=== PATIENT | male | born 1980 | race Caucasian/White ===

== ENCOUNTER 2018-02-08 07:57 | Inpatient (IN) ==
[2018-02-10] MEDS ORDERED: Cisatracurium Inj 100 MG in Sodium Chlor 0.9% Inj 240 ML IV.CONT PRN (04:27)
[2018-02-11] MEDS ORDERED: Heparin 10,000 UNITS/10 ML Vial (for IV use) OTHER PRN
[2018-02-11] MEDS ORDERED: Albumin Human 25% Inj 100 ML IV.SIG PRN
[2018-02-11] MEDS ORDERED: Acetaminophen 325 MG Tablet PO PRN
[2018-02-11] MEDS ORDERED: Sod Chloride 0.9% Inj 1,000 ML OTHER PRN ×2
[2018-02-11] MEDS ORDERED: Sod Chloride 0.9% Inj 1,000 ML IV.CONT PRN
[2018-02-11] MEDS ORDERED: Heparin 10,000 UNITS/10 ML Vial (for IV use) IV.FLUSH PRN
[2018-02-11] MEDS ORDERED: Gelatin 12 MM/7 MM Topical Foam TOPICAL PRN
[2018-02-11] MEDS ORDERED: Artificial Tears Opth Drops 15 ML Bottle EACH EYE PRN (00:01)
[2018-02-11] MEDS ORDERED: Dextrose 50% in Water 50 ML Vial IV.PUSH PRN (00:01)
[2018-02-11] MEDS ORDERED: Midazolam 50 MG/50 ML Inj 50 MG/50 ML BAG IV.CONT PRN (00:01)
[2018-02-11] MEDS ORDERED: Chlorhexidine Gluconate 2% 1 Pack (2 Cloths) TOPICAL PRN (00:01)
[2018-02-11] MEDS ORDERED: Cisatracurium Inj 100 MG in Sodium Chlor 0.9% Inj 240 ML IV.CONT PRN (00:01)
[2018-02-11] MEDS ORDERED: fentaNYL 10 mcg/mL Premix Drip 2,500 MCG/250 ML BAG IV.SIG PRN (00:01)
[2018-02-11] MEDS ORDERED: Norepinephrine Inj 4 MG in Sodium Chlor 0.9% Inj 246 ML IV.SIG PRN (00:01)
[2018-02-11] MEDS ORDERED: Propofol 1000 mg/100 ml Inj 1,000 MG/100 ML BOTTLE IV.CONT PRN (00:01)
[2018-02-11] MEDS ORDERED: Mix all IV Meds in NS OTHER SCH (00:01)
[2018-02-11] MEDS ORDERED: Phenylephrine Inj 160 MG in Sodium Chlor 0.9% Inj 484 ML IV.CONT PRN (00:01)
[2018-02-11] MEDS ORDERED: Haloperidol Inj 5 MG/ML Ampul IV.PUSH PRN (01:00)
[2018-02-11] MEDS ORDERED: WATER IV.SIG ONE ×2 (01:30)
[2018-02-11] MEDS ORDERED: ACETYLCYSTEINE IV.SIG ONE ×2 (01:30)
[2018-02-11] MEDS ORDERED: DEXTROSE 5% IV.SIG ONE ×2 (01:30)
[2018-02-11] MEDS ORDERED: Chlorhexidine Gluconate 2% 1 Pack (2 Cloths) TOPICAL SCH (04:00)
[2018-02-11] MEDS: Insulin NovoLIN Regular Correctional Sugar Inj SQ SCH ×5 (04:17→22:36)
[2018-02-11] MEDS: Sodium Bicarbonate 8.4% Inj 100 MEQ in Sodium Chloride 0.45 % Inj 900 ML IV.CONT SCH ×4 (04:17→20:57)
[2018-02-11] MEDS: Piperacil/Tazo 3.375 GM Premix 50 ML IV.SIG SCH ×3 (04:18→19:19)
[2018-02-11 06:09] LABS: Baso % (Auto) 0.2 % (0.0-2.0); Hematocrit 37.7 % (39.0-51.0); Hemoglobin 12.5 gm/dL (13.0-17.0); Lymph # (Auto) 0.9 th/mm3 (1.0-4.8); Lymph % (Auto) 3.2 % (9.0-44.0); Mean Corpuscular HGB Conc 33.2 % (32.0-36.0); Mean Corpuscular Hemoglobin 29.8 pg (27.0-34.0); Mean Corpuscular Volume 89.9 fL (80.0-100.0); Mono # (Auto) 0.7 th/mm3 (0.0-0.9); Mono % (Auto) 2.3 % (0.0-8.0); Neut # (Auto) 26.4 th/mm3 (1.8-7.7); Neut % (Auto) 94.3 % (16.0-70.0); Platelet Count 68 th/mm3 (150-450)
[2018-02-11] MEDS: Norepinephrine Inj 16 MG in Sodium Chlor 0.9% Inj 234 ML IV.SIG PRN (06:24)
[2018-02-11] MEDS: Phenylephrine Inj 160 MG in Sodium Chlor 0.9% Inj 484 ML IV.CONT PRN ×3 (06:26→22:32)
[2018-02-11 06:46] LABS: Albumin 1.7 g/dL (3.4-5.0); Carbon Dioxide 12.5 meq/L (21.0-32.0); Magnesium 1.8 mg/dL (1.5-2.5); Potassium 5.6 meq/L (3.5-5.1)
[2018-02-11 07:03] LABS: Phosphorus 8.9 mg/dL (2.5-4.9); Total Protein 4.8 g/dL (6.4-8.2)
[2018-02-11 07:12] LABS: Activated Partial Thrombo Time 41.9 sec (24.3-30.1); INR 1.7 Ratio; Prothrombin Time 17.4 sec (9.8-11.6)
[2018-02-11 07:16] LABS: ABG Base Excess -15.4 mmol/L (-2-2); ABG PCO2 34 mmHg (38-42); ABG PO2 98 mmHG (61-120)
[2018-02-11 07:43] LABS: Calcium 5.1 mg/dL (8.5-10.1)
--- NOTE | 2018-02-11 08:27 | P.PNCC ---
Subjective Subjective Remarks/Hospital Course: Patient is a 37-year-old male with unknown past medical history who presented to [facility] ED post-cardiopulmonary arrest. Per ED records, the patient was running from police and he was shocked twice and tased. The patient collapsed to the ground and was found in asystole. EMS started an IO and patient was given epinephrine and 2 rounds of CPR with successful return of spontaneous circulation. He was intubated on the scene and received approximately 500 mL of normal saline en route. He was hypotensive initially and EMS noted dilated pupils. The patient had a bottle of [place] used for killing weeds and evidently sprayed it at the police officers with potential self-contamination. His laboratory data is significant for severe lactic acidemia with lactic acid level of 25, metabolic acidosis with renal failure, creatinine 1.97. In addition, patient was hyperkalemic at 6.5 potassium. Other significant labs showed elevated ammonia level at 1392 and total CK 3284. His urine drug screen was positive for amphetamines. A CT scan of the brain was obtained, which was limited due to multiple artifacts; however, it showed no acute intracranial abnormalities. The patient also underwent CT angiogram of the chest, which showed no evidence of pulmonary embolism. Minimal ground glass opacities at the lung bases, likely reflecting atelectasis. Chest x-ray post-intubation showed ET tube above the roberth, otherwise no acute abnormalities. In the ED, patient was given approximately 2 L of crystalloids. In addition, he was treated for hyperkalemia with 10 units of IV insulin, D50, sodium bicarbonate, calcium gluconate and was placed on a bicarbonate drip. The patient was seen by Dr. Coronado from nephrology service. 02/09 Patient is intubated and sedated with Diprivan, Versed and Fentanyl drips in addition he is on neuromuscular blockade (Nimbex). Renal function is worse today with Cr: 2.69 from 1.89. 02/10: remains critically ill on vasopressors in shock. severe organ dysfunction persists, including shock liver, severe rhabdomyolysis, acidosis. re-warmed at 36 degrees currently and cisatricurium drip discontinued. 02/11: Remains orally intubated on mechanical ventilation on pressors. Off all sedation. Worsening metabolic acidosis and hyperkalemia. Hypotensive on phenylephrine, vasopressin. Started on Mucomyst GTT per poison control recommendation on 02/10. Nephrology to decide hemodialysis versus CRRT Objective Vital Signs / I&O: Vital Signs 02/11/18 00:05 02/11/18 00:30 02/11/18 01:00 Pulse Rate 132 H 134 H 134 H Respiratory Rate 0 L 0 L 0 L Blood Pressure 143/68 H 147/75 H Pulse Oximetry 99 98 97 02/11/18 01:30 02/11/18 02:00 02/11/18 02:30 Pulse Rate 135 H 137 H 137 H Respiratory Rate 0 L 0 L 0 L Blood Pressure 142/64 H 137/68 137/67 Pulse Oximetry 98 97 97 02/11/18 03:00 02/11/18 03:15 02/11/18 03:21 Pulse Rate 137 H 137 H 137 H Respiratory Rate 0 L 0 L 0 L Blood Pressure 139/62 131/58 L 126/61 Pulse Oximetry 98 97 97 02/11/18 03:30 02/11/18 03:45 02/11/18 03:53 Pulse Rate 137 H 137 H 135 H Respiratory Rate 0 L 0 L 21 Blood Pressure 119/60 117/56 L Pulse Oximetry 98 98 02/11/18 04:00 02/11/18 04:15 02/11/18 04:18 Pulse Rate 135 H 135 H Respiratory Rate 0 L 0 L 20 Blood Pressure 115/57 L 104/51 L Pulse Oximetry 97 97 100 02/11/18 04:30 02/11/18 04:45 02/11/18 05:00 Pulse Rate 133 H 133 H 133 H Respiratory Rate 0 L 0 L 0 L Blood Pressure 100/49 L 98/46 L 93/44 L Pulse Oximetry 96 97 97 02/11/18 05:15 02/11/18 05:30 02/11/18 05:45 Pulse Rate 133 H 130 H 130 H Respiratory Rate 0 L 0 L 0 L Blood Pressure 96/46 L 93/51 L 90/46 L Pulse Oximetry 98 98 98 02/11/18 06:00 02/11/18 06:15 02/11/18 06:30 Pulse Rate 130 H 130 H 130 H Respiratory Rate 0 L 15 20 Blood Pressure 88/44 L 91/48 L 94/46 L Pulse Oximetry 97 97 97 02/11/18 06:31 02/11/18 06:45 02/11/18 07:00 Pulse Rate 130 H 128 H 128 H Respiratory Rate 4 L 0 L 0 L Blood Pressure 94/46 L 91/48 L 92/44 L Pulse Oximetry 97 98 98 02/11/18 07:15 02/11/18 07:24 Pulse Rate 128 H Respiratory Rate 0 L 23 Blood Pressure 100/54 L Pulse Oximetry 93 L 97 Intake & Output 02/10/18 02/11/18 02/11/18 18:59 06:59 18:59 Intake Total 50 / 50 Output Total 450 / 450 Balance -450 / -450 50 / 50 Intake: IV 50 / 50 Zosyn 3.375 GM Premix 50 ML @ 50 / 50 100 mls/hr IV.SIG Q8H ENDY Rx#: [id number] Output: Urine 50 / 50 Stool 400 / 400 Result Diagrams: 02/11/18 05:15 02/11/18 05:15 Imaging: Last Impressions CT Angiography 02/08/18 0816 Signed Impressions: CONCLUSION: 1. Limited visualization of the pulmonary arteries beyond the proximal segment al level. No evidence for pulmonary artery embolism to the proximal segmental l evel. 2. Minimal groundglass opacities at the lung bases likely reflecting atelectas is. 3. Otherwise, unremarkable chest CT exam. Head CT 02/08/18 0804 Signed Impressions: CONCLUSION: 1. Limited evaluation near the vertices by multiple artifacts. 2. Otherwise, no acute intracranial abnormality. Chest X-Ray 02/08/18 08 Signed Impressions: CONCLUSION: 1. ETT in good position. NGT in the stomach. 2. No acute abnormality. Liver Ultrasound 02/08/18 0000 Signed Impressions: CONCLUSION: 1. Unremarkable right upper quadrant ultrasound examination. Specifically, no sonographic evidence for cholelithiasis or acute cholecystitis. Objective Remarks: Objective Remarks GENERAL: Patient is intubated and sedated SKIN: Warm and dry. HEAD: Normocephalic. EYES: No scleral icterus. No injection or drainage. NECK: Supple, trachea midline. No JVD. CARDIOVASCULAR: Regular rate and rhythm. sinus. RESPIRATORY: Breath sounds equal bilaterally. No accessory muscle use. GASTROINTESTINAL: Abdomen soft, non-tender, nondistended. no guarding. MUSCULOSKELETAL: No cyanosis, or edema. Neuro: Sedated, intubated, RASS -4. Assessment and Plan - Assessment and Plan Plan: A/P Assessment and Plan 1. Status post cardiopulmonary arrest. 2. ? Anoxic brain injury. 3. Encephalopathy. 4. Acute kidney injury- likely requiring renal replacement therapy 5 Thrombocytopenia 7. Severe Rhabdomyolysis.- worsening 8. Lactic acidemia. 9. Elevated ammonia level. 10. Leukocytosis. 11. Drug use with urine drug screen positive for amphetamines. 12 Coagulopathy 13. acute hypoxic and hypercarbic respiratory failure 14. acute anion gap and non-anion gap mixed metabolic acidosis 15. Acute shock liver 16. hypocalcemia 17. hyperkalemia 18. hypermagnesemia Plan Neuro: s/p therapeutic hypothermia Off all sedation. CT brain negative for acute process, UDS positive for amphetamines. On lactulose 30 mL q.i.d., monitor ammonia level. Will obtain EEG, Neuro consult Pulm: Continue with vent support. Maintain sats >92%. Bronchodilators in the form of DuoNeb q. 6 hours and will initiate ICU vent bundle. no weaning of mechanical ventilation while in shock with severe organ dysfunction CV: Monitor HR and BP and maintain MAP> 65 mmHg. 2d echo 02/09: ef 50-55%. On phenylephrine/vasopressin gtt. for hypotension. : Monitor renal function, I's and O's and electrolyte replacement as needed. Started on hemodialysis on 02/10. Remains in metabolic acidosis and hyperkalemia with negligible urine output. Renal is following- Dr. Coronado. Patient may need CRRT in view of worsening metabolic acidosis and hypotension-Nephrology to decide GI: on Pepcid for GI prophylaxis. Monitor LFTs , US Liver: Unremarkable, no evidence for cholelithiasis or acute cholecystitis. Continue with lactulose 30ml QID, monitor ammonia level. Hepatitis C positive hold off on tube feeds for now given shock. GI is following- started on Mucomyst ID: continue empiric abx ( Zosyn) in setting of worsening leukocytosis Monitor for signs of infection(fever and WBC). Follow up blood and urine cultures. Heme: Monitor CBC, coags. Coagulopathy likely 2nd hepatic failure Endo: SSI with Accu-Cheks for glycemic control. GI prophylaxis with Pepcid 10 mg IV q. 12 and DVT prophylaxis with SCDs . Lines: Cooling catheter placed in the left femoral area 02/07 LEft IJ vascath, LIJ central line placed 02/10. Patient is critically ill s/p cardiac arrest with worsening renal function, liver failure, Rhabdo and possibly anoxic brain injury. Prognosis guarded. CCT 45 mins, exclusive of separately billable procedures.
[2018-02-11] MEDS ORDERED: Sodium Bicarbonate 8.4% Inj 50 MEQ/50 ML Syringe IV.PUSH STA (08:28)
[2018-02-11 08:31] LABS: Lymphocytes 6 % (9-44); Metamyelocytes 10 % (0-1); Monocytes 5 % (0-8); Tallied Nucleated RBC 1 (0-0)
[2018-02-11 08:32] LABS: Platelet Morphology Normal (Normal); Toxic Granulation 1+
[2018-02-11 08:33] LABS: Acanthocytes 1+
--- NOTE | 2018-02-11 09:14 | P.PN ---
Subjective Interval history: Patient remain on the vent. and sedated, has been now on 3 pressors. Physical Exam Vital signs: Vital Signs 02/11/18 00:05 02/11/18 00:30 02/11/18 01:00 Pulse Rate 132 H 134 H 134 H Respiratory Rate 0 L 0 L 0 L Blood Pressure 143/68 H 147/75 H Pulse Oximetry 99 98 97 02/11/18 01:30 02/11/18 02:00 02/11/18 02:30 Pulse Rate 135 H 137 H 137 H Respiratory Rate 0 L 0 L 0 L Blood Pressure 142/64 H 137/68 137/67 Pulse Oximetry 98 97 97 02/11/18 03:00 02/11/18 03:15 02/11/18 03:21 Pulse Rate 137 H 137 H 137 H Respiratory Rate 0 L 0 L 0 L Blood Pressure 139/62 131/58 L 126/61 Pulse Oximetry 98 97 97 02/11/18 03:30 02/11/18 03:45 02/11/18 03:53 Pulse Rate 137 H 137 H 135 H Respiratory Rate 0 L 0 L 21 Blood Pressure 119/60 117/56 L Pulse Oximetry 98 98 02/11/18 04:00 02/11/18 04:15 02/11/18 04:18 Pulse Rate 135 H 135 H Respiratory Rate 0 L 0 L 20 Blood Pressure 115/57 L 104/51 L Pulse Oximetry 97 97 100 02/11/18 04:30 02/11/18 04:45 02/11/18 05:00 Pulse Rate 133 H 133 H 133 H Respiratory Rate 0 L 0 L 0 L Blood Pressure 100/49 L 98/46 L 93/44 L Pulse Oximetry 96 97 97 02/11/18 05:15 02/11/18 05:30 02/11/18 05:45 Pulse Rate 133 H 130 H 130 H Respiratory Rate 0 L 0 L 0 L Blood Pressure 96/46 L 93/51 L 90/46 L Pulse Oximetry 98 98 98 02/11/18 06:00 02/11/18 06:15 02/11/18 06:30 Pulse Rate 130 H 130 H 130 H Respiratory Rate 0 L 15 20 Blood Pressure 88/44 L 91/48 L 94/46 L Pulse Oximetry 97 97 97 02/11/18 06:31 02/11/18 06:45 02/11/18 07:00 Pulse Rate 130 H 128 H 128 H Respiratory Rate 4 L 0 L 0 L Blood Pressure 94/46 L 91/48 L 92/44 L Pulse Oximetry 97 98 98 02/11/18 07:15 02/11/18 07:24 02/11/18 07:30 Pulse Rate 128 H 128 H Respiratory Rate 0 L 23 0 L Blood Pressure 100/54 L 100/53 L Pulse Oximetry 93 L 97 99 02/11/18 07:45 02/11/18 08:00 02/11/18 08:15 Pulse Rate 128 H 128 H 128 H Respiratory Rate 0 L 0 L 0 L Blood Pressure 94/50 L 93/48 L 88/51 L Pulse Oximetry 97 98 98 02/11/18 08:30 02/11/18 08:45 Pulse Rate 128 H 128 H Respiratory Rate 0 L 0 L Blood Pressure 91/50 L 89/49 L Pulse Oximetry 98 98 Intake & Output 02/10/18 02/11/18 02/11/18 18:59 06:59 18:59 Intake Total 50 / 50 Output Total 450 / 450 Balance -450 / -450 50 / 50 Intake: IV 50 / 50 Zosyn 3.375 GM Premix 50 ML @ 50 / 50 100 mls/hr IV.SIG Q8H ENDY Rx#: [id number] Output: Urine 50 / 50 Stool 400 / 400 - Constitutional severe distress - Routine HEENT Exam Head: Present: normocephalic Eye: Present: EOMI - Routine Neck Exam Present: supple, JVD - Routine Respiratory Exam Present: accessory muscle use, patient mechanically ventilated - Routine Cardiovascular Exam Present: S1, S2, tachycardia - Routine Abdominal Exam Present: soft, distended, firm - Routine Extremities Exam Present: cyanosis, edema - Detailed Neurological Exam: Coma Scale Eye Opening: None Verbal Response: None - Urinary Catheter Management Indwelling Urethral Catheter Cath placed during this visit: no Results - Labs CBC & Chem 7: 02/11/18 05:15 02/11/18 05:15 Labs: Laboratory Results - last 24 hr 02/08/18 02/08/18 02/08/18 08:10 08:10 08:10 WBC RBC Hgb Hct MCV MCH MCHC RDW Plt Count MPV Prelim Diff (Auto) Neut % (Auto) Lymph % (Auto) [place] % (Auto) Eos % (Auto) Baso % (Auto) Neut # (Auto) Lymph # (Auto) [place] # (Auto) Eos # (Auto) Baso # (Auto) CBC Comment WBC Differential Total Counted Neutrophils % (Manual) Seg Neuts % (Manual) Band Neutrophils % Band Neuts % (Manual) Lymphocytes % Lymphocytes % (Manual) Monocytes % Monocytes % (Manual) Metamyelocytes % (Man) Neutrophils # (Manual) Abs Neuts (Manual) Nucleated RBCs/100 WBC Differential Comment Toxic Granulation Platelet Estimate Platelet Morphology Plt Morphology Comment Acanthocytes (Spur) RBC Morph Comment PT INR APTT Fibrinogen Puncture Site Patient Temperature HCO3 Base Excess O2 Saturation ABG pH ABG pCO2 ABG pO2 ABG HCO3 ABG O2 Content ABG Base Excess ABG Carboxyhemoglobin ABG Methemoglobin Cap Carboxyhemoglobin Hemoglobin O2 Delivery Device Vent Setting Inspired O2 Critical Value Sodium 143 Potassium 6.5 H Chloride 104 Carbon Dioxide 9.2 L Anion Gap 30 H BUN 12 Creatinine 1.97 H Estimated GFR 29 L Random Glucose 141 H Serum Osmolality Lactic Acid Calcium 8.2 L Prot Corrected Calcium Phosphorus Magnesium Iron TIBC % Saturation Ferritin Total Bilirubin 0.3 AST 103 H ALT 54 Alkaline Phosphatase 63 Ammonia Total Creatine Kinase 3284 H CK-MB (CK-2) 20.5 H CK-MB (CK-2) % 0.6 Troponin I 0.08 H Total Protein 6.8 Albumin 3.3 L TSH 3rd Generation 2.960 Urine Color Urine Turbidity Urine pH Ur Specific [place] Urine Protein Urine Glucose (UA) Urine Ketones Urine Occult Blood Urine Nitrite Urine Bilirubin Urine Urobilinogen Ur Leukocyte Esterase Urine RBC Urine WBC Amorphous Sediment Urine Bacteria Hyaline Casts Urine Mucus Micro UA Comment Nasal Screen MRSA (PCR) Salicylates 2.9 Urine Opiates Screen NEG Acetaminophen LESS THAN 2.0 L Ur Barbiturates Screen NEG Valproic Acid Ur Amphetamines Screen POS H U Benzodiazepines Scrn NEG Urine Cocaine Screen NEG U Cannabinoids Screen NEG Ethyl Alcohol LESS THAN 3 Hepatitis A IgM Ab Hep Bs Antigen Hep B Core IgM Ab Hep C IgG Ab 02/08/18 02/08/18 02/08/18 08:10 08:10 08:10 WBC RBC Hgb Hct MCV MCH MCHC RDW Plt Count MPV Prelim Diff (Auto) Neut % (Auto) Lymph % (Auto) [place] % (Auto) Eos % (Auto) Baso % (Auto) Neut # (Auto) Lymph # (Auto) [place] # (Auto) Eos # (Auto) Baso # (Auto) CBC Comment WBC Differential Total Counted Neutrophils % (Manual) Seg Neuts % (Manual) Band Neutrophils % Band Neuts % (Manual) Lymphocytes % Lymphocytes % (Manual) Monocytes % Monocytes % (Manual) Metamyelocytes % (Man) Neutrophils # (Manual) Abs Neuts (Manual) Nucleated RBCs/100 WBC Differential Comment Toxic Granulation Platelet Estimate Platelet Morphology Plt Morphology Comment Acanthocytes (Spur) RBC Morph Comment PT 12.8 H INR 1.3 APTT 59.7 H Fibrinogen Puncture Site Patient Temperature HCO3 Base Excess O2 Saturation ABG pH ABG pCO2 ABG pO2 ABG HCO3 ABG O2 Content ABG Base Excess ABG Carboxyhemoglobin ABG Methemoglobin Cap Carboxyhemoglobin Hemoglobin O2 Delivery Device Vent Setting Inspired O2 Critical Value Sodium Potassium Chloride Carbon Dioxide Anion Gap BUN Creatinine Estimated GFR Random Glucose Serum Osmolality Lactic Acid 25.2 H* Calcium Prot Corrected Calcium Phosphorus Magnesium Iron TIBC % Saturation Ferritin Total Bilirubin AST ALT Alkaline Phosphatase Ammonia 1392 H Total Creatine Kinase CK-MB (CK-2) CK-MB (CK-2) % Troponin I Total Protein Albumin TSH 3rd Generation Urine Color Urine Turbidity Urine pH Ur Specific [place] Urine Protein Urine Glucose (UA) Urine Ketones Urine Occult Blood Urine Nitrite Urine Bilirubin Urine Urobilinogen Ur Leukocyte Esterase Urine RBC Urine WBC Amorphous Sediment Urine Bacteria Hyaline Casts Urine Mucus Micro UA Comment Nasal Screen MRSA (PCR) Salicylates Urine Opiates Screen Acetaminophen Ur Barbiturates Screen Valproic Acid Ur Amphetamines Screen U Benzodiazepines Scrn Urine Cocaine Screen U Cannabinoids Screen Ethyl Alcohol Hepatitis A IgM Ab Hep Bs Antigen Hep B Core IgM Ab Hep C IgG Ab 02/08/18 02/08/18 02/08/18 08:10 08:10 10:32 WBC 12.0 H RBC 4.12 L Hgb 12.1 L Hct 41.1 MCV 99.6 MCH 29.4 MCHC 29.6 L RDW 16.6 Plt Count 283 MPV 9.1 Prelim Diff (Auto) Neut % (Auto) 46.3 Lymph % (Auto) 47.9 H [place] % (Auto) 4.8 Eos % (Auto) 0.2 Baso % (Auto) 0.8 Neut # (Auto) 5.6 Lymph # (Auto) 5.7 H [place] # (Auto) 0.6 Eos # (Auto) 0.0 Baso # (Auto) 0.1 CBC Comment AUTO DIFF WBC Differential Total Counted 100 Neutrophils % (Manual) 47 Seg Neuts % (Manual) Band Neutrophils % 3 Band Neuts % (Manual) Lymphocytes % 45 H Lymphocytes % (Manual) Monocytes % 5 Monocytes % (Manual) Metamyelocytes % (Man) Neutrophils # (Manual) 6.0 Abs Neuts (Manual) Nucleated RBCs/100 WBC Differential Comment FINAL DIFF MANUAL Toxic Granulation Platelet Estimate NORMAL Platelet Morphology Plt Morphology Comment NORMAL Acanthocytes (Spur) RBC Morph Comment PT INR APTT Fibrinogen Puncture Site LT FEMORAL Patient Temperature 98.6 HCO3 21 L Base Excess -3.2 L O2 Saturation 97 ABG pH 7.36 L ABG pCO2 39 ABG pO2 282 H ABG HCO3 ABG O2 Content 18.6 ABG Base Excess ABG Carboxyhemoglobin 0.2 ABG Methemoglobin 1.6 Cap Carboxyhemoglobin Hemoglobin 13.1 O2 Delivery Device VENTILATOR Vent Setting 500/10/+5/1.0 Inspired O2 100 Critical Value Sodium Potassium Chloride Carbon Dioxide Anion Gap BUN Creatinine Estimated GFR Random Glucose Serum Osmolality Lactic Acid Calcium Prot Corrected Calcium Phosphorus Magnesium Iron TIBC % Saturation Ferritin Total Bilirubin AST ALT Alkaline Phosphatase Ammonia Total Creatine Kinase CK-MB (CK-2) CK-MB (CK-2) % Troponin I Total Protein Albumin TSH 3rd Generation Urine Color Crystal Urine Turbidity CLOUDY H Urine pH 5.0 Ur Specific [place] 1.027 Urine Protein 100 H Urine Glucose (UA) NEG Urine Ketones TRACE H Urine Occult Blood SMALL H Urine Nitrite NEG Urine Bilirubin NEG Urine Urobilinogen 2.0 H Ur Leukocyte Esterase NEG Urine RBC 15 H Urine WBC 12 H Amorphous Sediment RARE Urine Bacteria RARE H Hyaline Casts 3 Urine Mucus FEW H Micro UA Comment CATH-CULTURE IND Nasal Screen MRSA (PCR) Salicylates Urine Opiates Screen Acetaminophen Ur Barbiturates Screen Valproic Acid Ur Amphetamines Screen U Benzodiazepines Scrn Urine Cocaine Screen U Cannabinoids Screen Ethyl Alcohol Hepatitis A IgM Ab Hep Bs Antigen Hep B Core IgM Ab Hep C IgG Ab 02/08/18 02/08/18 02/08/18 11:17 11:17 12:22 WBC RBC Hgb Hct MCV MCH MCHC RDW Plt Count MPV Prelim Diff (Auto) Neut % (Auto) Lymph % (Auto) [place] % (Auto) Eos % (Auto) Baso % (Auto) Neut # (Auto) Lymph # (Auto) [place] # (Auto) Eos # (Auto) Baso # (Auto) CBC Comment WBC Differential Total Counted Neutrophils % (Manual) Seg Neuts % (Manual) Band Neutrophils % Band Neuts % (Manual) Lymphocytes % Lymphocytes % (Manual) Monocytes % Monocytes % (Manual) Metamyelocytes % (Man) Neutrophils # (Manual) Abs Neuts (Manual) Nucleated RBCs/100 WBC Differential Comment Toxic Granulation Platelet Estimate Platelet Morphology Plt Morphology Comment Acanthocytes (Spur) RBC Morph Comment PT INR APTT Fibrinogen Puncture Site Patient Temperature HCO3 Base Excess O2 Saturation ABG pH ABG pCO2 ABG pO2 ABG HCO3 ABG O2 Content ABG Base Excess ABG Carboxyhemoglobin ABG Methemoglobin Cap Carboxyhemoglobin Hemoglobin O2 Delivery Device Vent Setting Inspired O2 Critical Value Sodium 143 Potassium 3.2 L D Chloride 107 Carbon Dioxide 23.3 D Anion Gap 13 BUN 13 Creatinine 1.60 H Estimated GFR 37 L Random Glucose 26 L* D Serum Osmolality Lactic Acid 3.0 H Calcium 6.4 L* D Prot Corrected Calcium 6.5 L* Phosphorus Magnesium Iron TIBC % Saturation Ferritin Total Bilirubin AST ALT Alkaline Phosphatase Ammonia Total Creatine Kinase CK-MB (CK-2) CK-MB (CK-2) % Troponin I Total Protein 7.0 Albumin TSH 3rd Generation Urine Color Urine Turbidity Urine pH Ur Specific [place] Urine Protein Urine Glucose (UA) Urine Ketones Urine Occult Blood Urine Nitrite Urine Bilirubin Urine Urobilinogen Ur Leukocyte Esterase Urine RBC Urine WBC Amorphous Sediment Urine Bacteria Hyaline Casts Urine Mucus Micro UA Comment Nasal Screen MRSA (PCR) MRSA NOT DETECTED Salicylates Urine Opiates Screen Acetaminophen Ur Barbiturates Screen Valproic Acid Ur Amphetamines Screen U Benzodiazepines Scrn Urine Cocaine Screen U Cannabinoids Screen Ethyl Alcohol Hepatitis A IgM Ab Hep Bs Antigen Hep B Core IgM Ab Hep C IgG Ab 02/08/1818 02/08/18 12:31 12:31 12:31 WBC RBC Hgb Hct MCV MCH MCHC RDW Plt Count MPV Prelim Diff (Auto) Neut % (Auto) Lymph % (Auto) [place] % (Auto) Eos % (Auto) Baso % (Auto) Neut # (Auto) Lymph # (Auto) [place] # (Auto) Eos # (Auto) Baso # (Auto) CBC Comment WBC Differential Total Counted Neutrophils % (Manual) Seg Neuts % (Manual) Band Neutrophils % Band Neuts % (Manual) Lymphocytes % Lymphocytes % (Manual) Monocytes % Monocytes % (Manual) Metamyelocytes % (Man) Neutrophils # (Manual) Abs Neuts (Manual) Nucleated RBCs/100 WBC Differential Comment Toxic Granulation Platelet Estimate Platelet Morphology Plt Morphology Comment Acanthocytes (Spur) RBC Morph Comment PT INR APTT Fibrinogen Puncture Site Patient Temperature HCO3 Base Excess O2 Saturation ABG pH ABG pCO2 ABG pO2 ABG HCO3 ABG O2 Content ABG Base Excess ABG Carboxyhemoglobin ABG Methemoglobin Cap Carboxyhemoglobin Hemoglobin O2 Delivery Device Vent Setting Inspired O2 Critical Value Sodium Potassium Chloride Carbon Dioxide Anion Gap BUN Creatinine Estimated GFR Random Glucose Serum Osmolality Lactic Acid Calcium Prot Corrected Calcium Phosphorus 4.2 Magnesium Iron TIBC % Saturation Ferritin Total Bilirubin AST ALT Alkaline Phosphatase Ammonia 50 H Total Creatine Kinase CK-MB (CK-2) CK-MB (CK-2) % Troponin I Total Protein Albumin TSH 3rd Generation Urine Color Urine Turbidity Urine pH Ur Specific [place] Urine Protein Urine Glucose (UA) Urine Ketones Urine Occult Blood Urine Nitrite Urine Bilirubin Urine Urobilinogen Ur Leukocyte Esterase Urine RBC Urine WBC Amorphous Sediment Urine Bacteria Hyaline Casts Urine Mucus Micro UA Comment Nasal Screen MRSA (PCR) Salicylates Urine Opiates Screen Acetaminophen Ur Barbiturates Screen Valproic Acid 3 L Ur Amphetamines Screen U Benzodiazepines Scrn Urine Cocaine Screen U Cannabinoids Screen Ethyl Alcohol Hepatitis A IgM Ab Hep Bs Antigen Hep B Core IgM Ab Hep C IgG Ab 02/08/18 02/08/18 02/08/18 14:11 16:22 16:22 WBC RBC Hgb Hct MCV MCH MCHC RDW Plt Count MPV Prelim Diff (Auto) Neut % (Auto) Lymph % (Auto) [place] % (Auto) Eos % (Auto) Baso % (Auto) Neut # (Auto) Lymph # (Auto) [place] # (Auto) Eos # (Auto) Baso # (Auto) CBC Comment WBC Differential Total Counted Neutrophils % (Manual) Seg Neuts % (Manual) Band Neutrophils % Band Neuts % (Manual) Lymphocytes % Lymphocytes % (Manual) Monocytes % Monocytes % (Manual) Metamyelocytes % (Man) Neutrophils # (Manual) Abs Neuts (Manual) Nucleated RBCs/100 WBC Differential Comment Toxic Granulation Platelet Estimate Platelet Morphology Plt Morphology Comment Acanthocytes (Spur) RBC Morph Comment PT INR APTT Fibrinogen Puncture Site Patient Temperature HCO3 Base Excess O2 Saturation ABG pH ABG pCO2 ABG pO2 ABG HCO3 ABG O2 Content ABG Base Excess ABG Carboxyhemoglobin ABG Methemoglobin Cap Carboxyhemoglobin Hemoglobin O2 Delivery Device Vent Setting Inspired O2 Critical Value Sodium Potassium Chloride Carbon Dioxide Anion Gap BUN Creatinine Estimated GFR Random Glucose Serum Osmolality 302 H Lactic Acid 1.2 Calcium Prot Corrected Calcium Phosphorus Magnesium Iron TIBC % Saturation Ferritin Total Bilirubin AST ALT Alkaline Phosphatase Ammonia 53 H Total Creatine Kinase CK-MB (CK-2) CK-MB (CK-2) % Troponin I Total Protein Albumin TSH 3rd Generation Urine Color Urine Turbidity Urine pH Ur Specific [place] Urine Protein Urine Glucose (UA) Urine Ketones Urine Occult Blood Urine Nitrite Urine Bilirubin Urine Urobilinogen Ur Leukocyte Esterase Urine RBC Urine WBC Amorphous Sediment Urine Bacteria Hyaline Casts Urine Mucus Micro UA Comment Nasal Screen MRSA (PCR) Salicylates Urine Opiates Screen Acetaminophen Ur Barbiturates Screen Valproic Acid Ur Amphetamines Screen U Benzodiazepines Scrn Urine Cocaine Screen U Cannabinoids Screen Ethyl Alcohol Hepatitis A IgM Ab Hep Bs Antigen Hep B Core IgM Ab Hep C IgG Ab 02/08/18 02/08/18 02/09/18 18:00 23:07 03:56 WBC RBC Hgb Hct MCV MCH MCHC RDW Plt Count MPV Prelim Diff (Auto) Neut % (Auto) Lymph % (Auto) [place] % (Auto) Eos % (Auto) Baso % (Auto) Neut # (Auto) Lymph # (Auto) [place] # (Auto) Eos # (Auto) Baso # (Auto) CBC Comment WBC Differential Total Counted Neutrophils % (Manual) Seg Neuts % (Manual) Band Neutrophils % Band Neuts % (Manual) Lymphocytes % Lymphocytes % (Manual) Monocytes % Monocytes % (Manual) Metamyelocytes % (Man) Neutrophils # (Manual) Abs Neuts (Manual) Nucleated RBCs/100 WBC Differential Comment Toxic Granulation Platelet Estimate Platelet Morphology Plt Morphology Comment Acanthocytes (Spur) RBC Morph Comment PT INR APTT Fibrinogen Puncture Site Patient Temperature HCO3 Base Excess O2 Saturation ABG pH ABG pCO2 ABG pO2 ABG HCO3 ABG O2 Content ABG Base Excess ABG Carboxyhemoglobin ABG Methemoglobin Cap Carboxyhemoglobin Hemoglobin O2 Delivery Device Vent Setting Inspired O2 Critical Value Sodium 142 141 Potassium 3.9 4.6 Chloride 107 109 H Carbon Dioxide 24.2 22.7 Anion Gap 11 9 BUN 19 H 26 H Creatinine 1.89 H 2.60 H Estimated GFR 31 L 21 L Random Glucose 123 H 129 H Serum Osmolality Lactic Acid 0.9 Calcium 6.6 L* 6.3 L* Prot Corrected Calcium 6.9 L* 6.7 L* Phosphorus Magnesium Iron TIBC % Saturation Ferritin Total Bilirubin 1.1 H AST 2631 H ALT 583 H Alkaline Phosphatase 97 Ammonia Total Creatine Kinase 249717 H CK-MB (CK-2) 1505.3 H CK-MB (CK-2) % 1.1 Troponin I Total Protein 6.6 6.3 L Albumin 3.0 L TSH 3rd Generation Urine Color Urine Turbidity Urine pH Ur Specific [place] Urine Protein Urine Glucose (UA) Urine Ketones Urine Occult Blood Urine Nitrite Urine Bilirubin Urine Urobilinogen Ur Leukocyte Esterase Urine RBC Urine WBC Amorphous Sediment Urine Bacteria Hyaline Casts Urine Mucus Micro UA Comment Nasal Screen MRSA (PCR) Salicylates Urine Opiates Screen Acetaminophen Ur Barbiturates Screen Valproic Acid Ur Amphetamines Screen U Benzodiazepines Scrn Urine Cocaine Screen U Cannabinoids Screen Ethyl Alcohol Hepatitis A IgM Ab Hep Bs Antigen Hep B Core IgM Ab Hep C IgG Ab 02/09/18 02/09/18 02/09/18 03:56 03:56 03:56 WBC 21.4 H D RBC 4.85 Hgb 14.4 D Hct 44.0 MCV 90.7 D MCH 29.7 MCHC 32.7 RDW 16.1 Plt Count 119 L D MPV 8.1 Prelim Diff (Auto) Neut % (Auto) 95.5 H Lymph % (Auto) 2.6 L [place] % (Auto) 1.8 Eos % (Auto) 0.0 Baso % (Auto) 0.1 Neut # (Auto) 20.4 H Lymph # (Auto) 0.6 L [place] # (Auto) 0.4 Eos # (Auto) 0.0 Baso # (Auto) 0.0 CBC Comment DIFF FINAL WBC Differential Total Counted Neutrophils % (Manual) Seg Neuts % (Manual) Band Neutrophils % Band Neuts % (Manual) Lymphocytes % Lymphocytes % (Manual) Monocytes % Monocytes % (Manual) Metamyelocytes % (Man) Neutrophils # (Manual) Abs Neuts (Manual) Nucleated RBCs/100 WBC Differential Comment Toxic Granulation Platelet Estimate Platelet Morphology Plt Morphology Comment Acanthocytes (Spur) RBC Morph Comment PT INR APTT Fibrinogen Puncture Site Patient Temperature HCO3 Base Excess O2 Saturation ABG pH ABG pCO2 ABG pO2 ABG HCO3 ABG O2 Content ABG Base Excess ABG Carboxyhemoglobin ABG Methemoglobin Cap Carboxyhemoglobin Hemoglobin O2 Delivery Device Vent Setting Inspired O2 Critical Value Sodium Potassium Chloride Carbon Dioxide Anion Gap BUN Creatinine Estimated GFR Random Glucose Serum Osmolality Lactic Acid 1.0 Calcium Prot Corrected Calcium Phosphorus Magnesium Iron TIBC % Saturation Ferritin Total Bilirubin AST ALT Alkaline Phosphatase Ammonia 100 H Total Creatine Kinase CK-MB (CK-2) CK-MB (CK-2) % Troponin I Total Protein Albumin TSH 3rd Generation Urine Color Urine Turbidity Urine pH Ur Specific [place] Urine Protein Urine Glucose (UA) Urine Ketones Urine Occult Blood Urine Nitrite Urine Bilirubin Urine Urobilinogen Ur Leukocyte Esterase Urine RBC Urine WBC Amorphous Sediment Urine Bacteria Hyaline Casts Urine Mucus Micro UA Comment Nasal Screen MRSA (PCR) Salicylates Urine Opiates Screen Acetaminophen Ur Barbiturates Screen Valproic Acid Ur Amphetamines Screen U Benzodiazepines Scrn Urine Cocaine Screen U Cannabinoids Screen Ethyl Alcohol Hepatitis A IgM Ab Hep Bs Antigen Hep B Core IgM Ab Hep C IgG Ab 02/09/18 02/09/18 02/09/18 09:20 09:20 09:20 WBC RBC Hgb Hct MCV MCH MCHC RDW Plt Count MPV Prelim Diff (Auto) Neut % (Auto) Lymph % (Auto) [place] % (Auto) Eos % (Auto) Baso % (Auto) Neut # (Auto) Lymph # (Auto) [place] # (Auto) Eos # (Auto) Baso # (Auto) CBC Comment WBC Differential Total Counted Neutrophils % (Manual) Seg Neuts % (Manual) Band Neutrophils % Band Neuts % (Manual) Lymphocytes % Lymphocytes % (Manual) Monocytes % Monocytes % (Manual) Metamyelocytes % (Man) Neutrophils # (Manual) Abs Neuts (Manual) Nucleated RBCs/100 WBC Differential Comment Toxic Granulation Platelet Estimate Platelet Morphology Plt Morphology Comment Acanthocytes (Spur) RBC Morph Comment PT 18.1 H D INR 1.8 APTT Fibrinogen 120 L Puncture Site Patient Temperature HCO3 Base Excess O2 Saturation ABG pH ABG pCO2 ABG pO2 ABG HCO3 ABG O2 Content ABG Base Excess ABG Carboxyhemoglobin ABG Methemoglobin Cap Carboxyhemoglobin Hemoglobin O2 Delivery Device Vent Setting Inspired O2 Critical Value Sodium 143 Potassium 4.7 Chloride 111 H Carbon Dioxide 22.1 Anion Gap 10 BUN 28 H Creatinine 3.05 H Estimated GFR 18 L Random Glucose 127 H Serum Osmolality Lactic Acid Calcium 7.5 L D Prot Corrected Calcium Phosphorus Magnesium 4.0 H Iron TIBC % Saturation Ferritin Total Bilirubin AST ALT Alkaline Phosphatase Ammonia Total Creatine Kinase CK-MB (CK-2) CK-MB (CK-2) % Troponin I Total Protein Albumin TSH 3rd Generation Urine Color Urine Turbidity Urine pH Ur Specific [place] Urine Protein Urine Glucose (UA) Urine Ketones Urine Occult Blood Urine Nitrite Urine Bilirubin Urine Urobilinogen Ur Leukocyte Esterase Urine RBC Urine WBC Amorphous Sediment Urine Bacteria Hyaline Casts Urine Mucus Micro UA Comment Nasal Screen MRSA (PCR) Salicylates Urine Opiates Screen Acetaminophen Ur Barbiturates Screen Valproic Acid Ur Amphetamines Screen U Benzodiazepines Scrn Urine Cocaine Screen U Cannabinoids Screen Ethyl Alcohol Hepatitis A IgM Ab NONREACTIVE Hep Bs Antigen NONREACTIVE Hep B Core IgM Ab NONREACTIVE Hep C IgG Ab REACTIVE H 02/09/18 02/10/18 02/10/18 22:10 04:00 04:00 WBC RBC Hgb Hct MCV MCH MCHC RDW Plt Count MPV Prelim Diff (Auto) Neut % (Auto) Lymph % (Auto) [place] % (Auto) Eos % (Auto) Baso % (Auto) Neut # (Auto) Lymph # (Auto) [place] # (Auto) Eos # (Auto) Baso # (Auto) CBC Comment WBC Differential Total Counted Neutrophils % (Manual) Seg Neuts % (Manual) Band Neutrophils % Band Neuts % (Manual) Lymphocytes % Lymphocytes % (Manual) Monocytes % Monocytes % (Manual) Metamyelocytes % (Man) Neutrophils # (Manual) Abs Neuts (Manual) Nucleated RBCs/100 WBC Differential Comment Toxic Granulation Platelet Estimate Platelet Morphology Plt Morphology Comment Acanthocytes (Spur) RBC Morph Comment PT 18.2 H INR 1.8 APTT Fibrinogen Puncture Site Patient Temperature HCO3 Base Excess O2 Saturation ABG pH ABG pCO2 ABG pO2 ABG HCO3 ABG O2 Content ABG Base Excess ABG Carboxyhemoglobin ABG Methemoglobin Cap Carboxyhemoglobin Hemoglobin O2 Delivery Device Vent Setting Inspired O2 Critical Value Sodium 142 143 Potassium 5.4 H 5.3 H Chloride 108 H 107 Carbon Dioxide 23.5 22.0 Anion Gap 11 14 BUN 34 H 38 H Creatinine 3.97 H 4.62 H Estimated GFR 13 L 11 L Random Glucose 90 94 Serum Osmolality Lactic Acid Calcium 5.6 L* D 6.2 L* Prot Corrected Calcium 6.1 L* D 7.1 L* Phosphorus Magnesium 3.3 H D 3.0 H Iron 157 TIBC 167 L % Saturation 94.2 H Ferritin 2162 H Total Bilirubin 1.5 H AST 4303 H ALT 1637 H Alkaline Phosphatase 110 Ammonia Total Creatine Kinase 528742 H CK-MB (CK-2) 1446.6 H CK-MB (CK-2) % 0.8 Troponin I Total Protein 5.8 L 5.2 L D Albumin 2.2 L D TSH 3rd Generation Urine Color Urine Turbidity Urine pH Ur Specific [place] Urine Protein Urine Glucose (UA) Urine Ketones Urine Occult Blood Urine Nitrite Urine Bilirubin Urine Urobilinogen Ur Leukocyte Esterase Urine RBC Urine WBC Amorphous Sediment Urine Bacteria Hyaline Casts Urine Mucus Micro UA Comment Nasal Screen MRSA (PCR) Salicylates Urine Opiates Screen Acetaminophen Ur Barbiturates Screen Valproic Acid Ur Amphetamines Screen U Benzodiazepines Scrn Urine Cocaine Screen U Cannabinoids Screen Ethyl Alcohol Hepatitis A IgM Ab Hep Bs Antigen Hep B Core IgM Ab Hep C IgG Ab 02/10/18 02/10/18 02/10/18 06:00 06:15 07:52 WBC 18.4 H RBC 4.37 L Hgb 13.0 Hct 40.0 MCV 91.5 MCH 29.7 MCHC 32.4 RDW 16.2 Plt Count 99 L MPV 9.6 Prelim Diff (Auto) Neut % (Auto) 93.0 H Lymph % (Auto) 4.3 L [place] % (Auto) 2.6 Eos % (Auto) 0.0 Baso % (Auto) 0.1 Neut # (Auto) 17.1 H Lymph # (Auto) 0.8 L [place] # (Auto) 0.5 Eos # (Auto) 0.0 Baso # (Auto) 0.0 CBC Comment AUTO DIFF WBC Differential Total Counted 100 Neutrophils % (Manual) 65 Seg Neuts % (Manual) Band Neutrophils % 31 H Band Neuts % (Manual) Lymphocytes % 1 L Lymphocytes % (Manual) Monocytes % 3 Monocytes % (Manual) Metamyelocytes % (Man) Neutrophils # (Manual) 17.7 H Abs Neuts (Manual) Nucleated RBCs/100 WBC Differential Comment FINAL DIFF MANUAL Toxic Granulation Platelet Estimate LOW L Platelet Morphology Plt Morphology Comment NORMAL Acanthocytes (Spur) RBC Morph Comment NORMAL PT INR APTT Fibrinogen Puncture Site RT BRACHIAL Patient Temperature 98.6 HCO3 20 L Base Excess -9.3 L O2 Saturation 94 ABG pH 7.06 L* ABG pCO2 74 H* ABG pO2 103 ABG HCO3 ABG O2 Content 17.7 ABG Base Excess ABG Carboxyhemoglobin 0.8 ABG Methemoglobin 1.9 Cap Carboxyhemoglobin Hemoglobin 13.3 O2 Delivery Device VENTILATOR Vent Setting PRVC/AC Inspired O2 35 Critical Value Sodium Potassium Chloride Carbon Dioxide Anion Gap BUN Creatinine Estimated GFR Random Glucose Serum Osmolality Lactic Acid Calcium Prot Corrected Calcium Phosphorus Magnesium Iron TIBC % Saturation Ferritin Total Bilirubin AST ALT Alkaline Phosphatase Ammonia 106 H Total Creatine Kinase CK-MB (CK-2) CK-MB (CK-2) % Troponin I Total Protein Albumin TSH 3rd Generation Urine Color Urine Turbidity Urine pH Ur Specific [place] Urine Protein Urine Glucose (UA) Urine Ketones Urine Occult Blood Urine Nitrite Urine Bilirubin Urine Urobilinogen Ur Leukocyte Esterase Urine RBC Urine WBC Amorphous Sediment Urine Bacteria Hyaline Casts Urine Mucus Micro UA Comment Nasal Screen MRSA (PCR) Salicylates Urine Opiates Screen Acetaminophen Ur Barbiturates Screen Valproic Acid Ur Amphetamines Screen U Benzodiazepines Scrn Urine Cocaine Screen U Cannabinoids Screen Ethyl Alcohol Hepatitis A IgM Ab Hep Bs Antigen Hep B Core IgM Ab Hep C IgG Ab 02/10/18 02/11/18 02/11/18 11:47 05:15 05:15 WBC RBC Hgb Hct MCV MCH MCHC RDW Plt Count MPV Prelim Diff (Auto) Neut % (Auto) Lymph % (Auto) [place] % (Auto) Eos % (Auto) Baso % (Auto) Neut # (Auto) Lymph # (Auto) [place] # (Auto) Eos # (Auto) Baso # (Auto) CBC Comment WBC Differential Total Counted Neutrophils % (Manual) Seg Neuts % (Manual) Band Neutrophils % Band Neuts % (Manual) Lymphocytes % Lymphocytes % (Manual) Monocytes % Monocytes % (Manual) Metamyelocytes % (Man) Neutrophils # (Manual) Abs Neuts (Manual) Nucleated RBCs/100 WBC Differential Comment Toxic Granulation Platelet Estimate Platelet Morphology Plt Morphology Comment Acanthocytes (Spur) RBC Morph Comment PT 17.4 H INR 1.7 APTT 41.9 H Fibrinogen 464 H Puncture Site ART LINE Patient Temperature 98.6 HCO3 16 L* Base Excess -10.7 L O2 Saturation 95 ABG pH 7.16 L* ABG pCO2 48 H ABG pO2 117 ABG HCO3 ABG O2 Content 17.0 ABG Base Excess ABG Carboxyhemoglobin 0.8 ABG Methemoglobin 1.9 Cap Carboxyhemoglobin Hemoglobin 12.6 O2 Delivery Device VENTILATOR Vent Setting Inspired O2 35 Critical Value Sodium Potassium Chloride Carbon Dioxide Anion Gap BUN Creatinine Estimated GFR Random Glucose Serum Osmolality Lactic Acid Calcium Prot Corrected Calcium Phosphorus Magnesium Iron TIBC % Saturation Ferritin Total Bilirubin AST ALT Alkaline Phosphatase Ammonia 38 H Total Creatine Kinase CK-MB (CK-2) CK-MB (CK-2) % Troponin I Total Protein Albumin TSH 3rd Generation Urine Color Urine Turbidity Urine pH Ur Specific [place] Urine Protein Urine Glucose (UA) Urine Ketones Urine Occult Blood Urine Nitrite Urine Bilirubin Urine Urobilinogen Ur Leukocyte Esterase Urine RBC Urine WBC Amorphous Sediment Urine Bacteria Hyaline Casts Urine Mucus Micro UA Comment Nasal Screen MRSA (PCR) Salicylates Urine Opiates Screen Acetaminophen Ur Barbiturates Screen Valproic Acid Ur Amphetamines Screen U Benzodiazepines Scrn Urine Cocaine Screen U Cannabinoids Screen Ethyl Alcohol Hepatitis A IgM Ab Hep Bs Antigen Hep B Core IgM Ab Hep C IgG Ab 02/11/18 02/11/18 02/11/18 05:15 05:15 07:07 WBC 28.0 H RBC 4.20 L Hgb 12.5 L Hct 37.7 L MCV 89.9 MCH 29.8 MCHC 33.2 RDW 16.0 Plt Count 68 L MPV 10.0 Prelim Diff (Auto) Slide review pending Neut % (Auto) 94.3 H Lymph % (Auto) 3.2 L [place] % (Auto) 2.3 Eos % (Auto) 0.0 Baso % (Auto) 0.2 Neut # (Auto) 26.4 H Lymph # (Auto) 0.9 L [place] # (Auto) 0.7 Eos # (Auto) 0.0 Baso # (Auto) 0.0 CBC Comment WBC Differential Manual diff final Total Counted Neutrophils % (Manual) Seg Neuts % (Manual) 49 Band Neutrophils % Band Neuts % (Manual) 30 H Lymphocytes % Lymphocytes % (Manual) 6 L Monocytes % Monocytes % (Manual) 5 Metamyelocytes % (Man) 10 H Neutrophils # (Manual) Abs Neuts (Manual) 24.9 H Nucleated RBCs/100 WBC 1 H Differential Comment . Toxic Granulation 1+ H Platelet Estimate Low L Platelet Morphology Normal Plt Morphology Comment Acanthocytes (Spur) 1+ H RBC Morph Comment PT INR APTT Fibrinogen Puncture Site Art line Patient Temperature 98.6 HCO3 Base Excess O2 Saturation 93 ABG pH 7.16 L* ABG pCO2 34 L ABG pO2 98 ABG HCO3 12 L* ABG O2 Content 16.2 ABG Base Excess -15.4 L ABG Carboxyhemoglobin ABG Methemoglobin 1.7 Cap Carboxyhemoglobin 0.4 Hemoglobin 12.3 O2 Delivery Device Ventilator Vent Setting Prvc/ac Inspired O2 35 Critical Value Yes Sodium 140 Potassium 5.6 H Chloride 104 Carbon Dioxide 12.5 L Anion Gap 24 H BUN 46 H Creatinine 6.04 H Estimated GFR 8 L Random Glucose 98 Serum Osmolality Lactic Acid Calcium 5.1 L* Prot Corrected Calcium 6.0 L* Phosphorus 8.9 H Magnesium 1.8 Iron TIBC % Saturation Ferritin Total Bilirubin 1.7 H AST 3047 H ALT 1317 H Alkaline Phosphatase 109 Ammonia Total Creatine Kinase CK-MB (CK-2) CK-MB (CK-2) % Troponin I Total Protein 4.8 L Albumin 1.7 L TSH 3rd Generation Urine Color Urine Turbidity Urine pH Ur Specific [place] Urine Protein Urine Glucose (UA) Urine Ketones Urine Occult Blood Urine Nitrite Urine Bilirubin Urine Urobilinogen Ur Leukocyte Esterase Urine RBC Urine WBC Amorphous Sediment Urine Bacteria Hyaline Casts Urine Mucus Micro UA Comment Nasal Screen MRSA (PCR) Salicylates Urine Opiates Screen Acetaminophen Ur Barbiturates Screen Valproic Acid Ur Amphetamines Screen U Benzodiazepines Scrn Urine Cocaine Screen U Cannabinoids Screen Ethyl Alcohol Hepatitis A IgM Ab Hep Bs Antigen Hep B Core IgM Ab Hep C IgG Ab Assessment and Plan - Assessment (1) Acute kidney failure Code(s): N17.9 - Acute kidney failure, unspecified Status: Acute (2) Respiratory failure Code(s): J96.90 - Respiratory failure, unspecified, unspecified whether with hypoxia or hypercapnia Status: Acute (3) History of cardiac arrest Code(s): Z86.74 - Personal history of sudden cardiac arrest Status: Acute (4) Metabolic acidosis Code(s): E87.2 - Acidosis Status: Acute (5) Hypotension Code(s): I95.9 - Hypotension, unspecified Status: Acute - Plan Patient remain hypotensive. Urine out put is low, now on 3 pressors. BP is on lower side. Developing metabolic acidosis, K is high, calcium is low. Need to start on CRRT. I spoke to RN and HD Nurse. Will start CRRT soon.
[2018-02-11] MEDS: Famotidine PF Inj 20 MG/2 ML Vial IV.PUSH SCH ×2 (09:24→21:31)
[2018-02-11] MEDS: Sodium Polystyrene Sulfonate/Sorbitol Liq 15 GM/60 ML UDC PO SCH ×3 (09:29→13:16)
[2018-02-11] MEDS: rifAXIMin 550 MG Tablet PO SCH ×2 (09:30→21:31)
[2018-02-11 10:11] LABS: CKMB Percent 0.5 % (0.0-4.0); Creatine Kinase MB 808.8 ng/mL (0.5-3.6)
[2018-02-11] MEDS ORDERED: CALCIUM GLUCONATE IV.SIG PRN (11:00)
[2018-02-11] MEDS ORDERED: SOD CHLORIDE 0.9% IV.SIG PRN (11:00)
[2018-02-11] MEDS ORDERED: Calcium Chloride Inj 2 GM in Sodium Chlor 0.9% Inj 100 ML IV.SIG ONE (11:00)
[2018-02-11] MEDS: Vasopressin Inj 40 UNIT in Sodium Chlor 0.9% Inj 98 ML IV.CONT SCH (11:01)
[2018-02-11] MEDS ORDERED: Albumin Human 5% Inj 500 ML IV.SIG ONE (14:49)
[2018-02-11] MEDS ORDERED: Albumin Human 5% Inj 500 ML IV.SIG SCH (16:00)
[2018-02-11 18:24] LABS: ABG Base Excess -13.1 mmol/L (-2-2); ABG PCO2 40 mmHg (38-42); ABG PO2 238 mmHG (61-120)
--- NOTE | 2018-02-11 18:37 | P.PNGI ---
Subjective Interval history: Patient is being managed in the intensive care setting nonresponsive Tachycardic, intubated Firm abdomen no obvious bowel sounds Very small amount of liquid BM noted in the rectal bag Critically ill cyanosis noted up to knees bilateral <VeronicaRena Hawa - Last Filed: 02/11/18 18:26> Physical Exam Vital signs: Vital Signs 02/11/18 00:05 02/11/18 00:30 02/11/18 01:00 Pulse Rate 132 H 134 H 134 H Respiratory Rate 0 L 0 L 0 L Blood Pressure 143/68 H 147/75 H Pulse Oximetry 99 98 97 02/11/18 01:30 02/11/18 02:00 02/11/18 02:30 Pulse Rate 135 H 137 H 137 H Respiratory Rate 0 L 0 L 0 L Blood Pressure 142/64 H 137/68 137/67 Pulse Oximetry 98 97 97 02/11/18 03:00 02/11/18 03:15 02/11/18 03:21 Pulse Rate 137 H 137 H 137 H Respiratory Rate 0 L 0 L 0 L Blood Pressure 139/62 131/58 L 126/61 Pulse Oximetry 98 97 97 02/11/18 03:30 02/11/18 03:45 02/11/18 03:53 Pulse Rate 137 H 137 H 135 H Respiratory Rate 0 L 0 L 21 Blood Pressure 119/60 117/56 L Pulse Oximetry 98 98 02/11/18 04:00 02/11/18 04:15 02/11/18 04:18 Pulse Rate 135 H 135 H Respiratory Rate 0 L 0 L 20 Blood Pressure 115/57 L 104/51 L Pulse Oximetry 97 97 100 02/11/18 04:30 02/11/18 04:45 02/11/18 05:00 Pulse Rate 133 H 133 H 133 H Respiratory Rate 0 L 0 L 0 L Blood Pressure 100/49 L 98/46 L 93/44 L Pulse Oximetry 96 97 97 02/11/18 05:15 02/11/18 05:30 02/11/18 05:45 Pulse Rate 133 H 130 H 130 H Respiratory Rate 0 L 0 L 0 L Blood Pressure 96/46 L 93/51 L 90/46 L Pulse Oximetry 98 98 98 02/11/18 06:00 02/11/18 06:15 02/11/18 06:30 Pulse Rate 130 H 130 H 130 H Respiratory Rate 0 L 15 20 Blood Pressure 88/44 L 91/48 L 94/46 L Pulse Oximetry 97 97 97 02/11/18 06:31 02/11/18 06:45 02/11/18 07:00 Pulse Rate 130 H 128 H 128 H Respiratory Rate 4 L 0 L 0 L Blood Pressure 94/46 L 91/48 L 92/44 L Pulse Oximetry 97 98 98 02/11/18 07:15 02/11/18 07:24 02/11/18 07:30 Pulse Rate 128 H 128 H Respiratory Rate 0 L 23 0 L Blood Pressure 100/54 L 100/53 L Pulse Oximetry 93 L 97 99 02/11/18 07:45 02/11/18 08:00 02/11/18 08:15 Pulse Rate 128 H 128 H 128 H Respiratory Rate 0 L 0 L 0 L Blood Pressure 94/50 L 93/48 L 88/51 L Pulse Oximetry 97 98 98 02/11/18 08:30 02/11/18 08:45 02/11/18 09:00 Pulse Rate 128 H 128 H 126 H Respiratory Rate 0 L 0 L 0 L Blood Pressure 91/50 L 89/49 L 94/46 L Pulse Oximetry 98 98 98 02/11/18 10:30 02/11/18 10:45 02/11/18 11:00 Pulse Rate 120 H 120 H 120 H Respiratory Rate 0 L 0 L 0 L Blood Pressure 97/49 L 100/49 L 99/53 L Pulse Oximetry 98 98 97 02/11/18 11:13 02/11/18 11:15 02/11/18 11:30 Pulse Rate 120 H 120 H Respiratory Rate 24 0 L 0 L Blood Pressure 102/51 L 103/50 L Pulse Oximetry 97 98 98 02/11/18 11:45 02/11/18 12:00 02/11/18 12:15 Pulse Rate 116 H 117 H 117 H Respiratory Rate 0 L 9 L 1 L Blood Pressure 94/45 L 100/43 L 94/43 L Pulse Oximetry 97 96 96 02/11/18 12:30 02/11/18 12:31 02/11/18 12:32 Pulse Rate 116 H 116 H 116 H Respiratory Rate 1 L 3 L 1 L Blood Pressure 89/42 L 86/40 L 85/41 L Pulse Oximetry 96 96 96 02/11/18 12:35 02/11/18 12:40 02/11/18 12:45 Pulse Rate 116 H 117 H 117 H Respiratory Rate 7 L 4 L 1 L Blood Pressure 82/39 L 88/42 L 91/43 L Pulse Oximetry 96 97 97 02/11/18 12:50 02/11/18 12:55 02/11/18 13:00 Pulse Rate 117 H 117 H 117 H Respiratory Rate 0 L 4 L 5 L Blood Pressure 88/42 L 98/44 L 105/45 L Pulse Oximetry 97 96 96 02/11/18 13:05 02/11/18 13:10 02/11/18 13:15 Pulse Rate 117 H 117 H 118 H Respiratory Rate 2 L 26 H 15 Blood Pressure 102/44 L 96/44 L 95/46 L Pulse Oximetry 96 98 97 02/11/18 13:20 02/11/18 13:25 02/11/18 13:30 Pulse Rate 118 H 118 H 118 H Respiratory Rate 24 26 H 19 Blood Pressure 93/45 L 95/46 L 86/42 L Pulse Oximetry 98 98 98 02/11/18 13:35 02/11/18 13:40 02/11/18 15:10 Pulse Rate 118 H 119 H 120 H Respiratory Rate 20 23 0 L Blood Pressure 88/42 L 98/49 L 105/45 L Pulse Oximetry 97 98 98 02/11/18 15:15 02/11/18 15:20 02/11/18 15:25 Pulse Rate 121 H 121 H 122 H Respiratory Rate 0 L 0 L 0 L Blood Pressure 104/51 L 104/49 L 102/49 L Pulse Oximetry 98 98 98 02/11/18 15:30 02/11/18 15:33 02/11/18 15:35 Pulse Rate 122 H 122 H 122 H Respiratory Rate 0 L 26 H 0 L Blood Pressure 97/45 L 99/45 L Pulse Oximetry 99 99 98 02/11/18 15:40 02/11/18 15:41 02/11/18 15:42 Pulse Rate 120 H 120 H 121 H Respiratory Rate 0 L 0 L 0 L Blood Pressure 99/38 L 92/35 L 95/41 L Pulse Oximetry 93 L 94 L 97 02/11/18 15:45 02/11/18 15:50 02/11/18 15:55 Pulse Rate 121 H 121 H 120 H Respiratory Rate 0 L 0 L 0 L Blood Pressure 100/47 L 88/42 L 108/51 L Pulse Oximetry 92 L 84 L 94 L 02/11/18 16:00 02/11/18 16:05 02/11/18 16:10 Pulse Rate 121 H 120 H 119 H Respiratory Rate 0 L 0 L 0 L Blood Pressure 97/48 L 99/49 L 101/51 L Pulse Oximetry 90 L 97 97 02/11/18 16:15 02/11/18 16:20 02/11/18 16:25 Pulse Rate 120 H 120 H 120 H Respiratory Rate 0 L 0 L 0 L Blood Pressure 98/48 L 94/52 L 93/48 L Pulse Oximetry 97 96 96 02/11/18 16:30 02/11/18 16:35 02/11/18 16:40 Pulse Rate 120 H 121 H 121 H Respiratory Rate 0 L 0 L 0 L Blood Pressure 92/47 L 92/48 L 93/55 L Pulse Oximetry 96 97 94 L 02/11/18 16:45 02/11/18 16:50 02/11/18 16:55 Pulse Rate 121 H 121 H 121 H Respiratory Rate 0 L 0 L 0 L Blood Pressure 89/44 L 90/44 L 90/45 L Pulse Oximetry 97 94 L 99 02/11/18 17:00 Pulse Rate 121 H Respiratory Rate 7 L Blood Pressure 88/46 L Pulse Oximetry 99 Intake & Output 02/10/18 02/11/18 02/11/18 18:59 06:59 18:59 Intake Total 600 / 600 Output Total 450 / 450 Balance -450 / -450 600 / 600 Intake: IV 600 / 600 Neosynephrine Inj 160 MG In NS 500 / 500 Inj 484 ML @ 40 MCG/MIN 7.5 mls /hr IV.CONT TITRATE PRN Rx#: [id number] Zosyn 3.375 GM Premix 50 ML @ 100 / 100 100 mls/hr IV.SIG Q8H ENDY Rx#: [id number] Output: Urine 50 / 50 Stool 400 / 400 - Constitutional severe distress, chronically ill appearing, obtunded - Routine HEENT Exam Head: Present: normocephalic, atraumatic, facial swelling (Minimal) ENT: Present: mucous membranes dry - Routine Neck Exam Present: supple - Routine Respiratory Exam Present: patient mechanically ventilated - Routine Cardiovascular Exam Present: tachycardia - Routine Abdominal Exam Present: distended, firm, rigid (Borderline) - Routine Extremities Exam Present: cyanosis, extremity cold to touch (Bilateral up to kneecap area) - Routine Skin Exam Present: pallor, mottling - Routine Neurological Exam Present: sensory deficit (Nonresponsive) - Detailed Neurological Exam: Coma Scale Eye Opening: None Verbal Response: None - Routine Psychiatric Exam Present: unable to assess - Urinary Catheter Management Indwelling Urethral Catheter Cath placed during this visit: no <Rena Martin - Last Filed: 02/11/18 18:26> Vital signs: Vital Signs 02/11/18 00:05 02/11/18 00:30 02/11/18 01:00 Temperature Pulse Rate 132 H 134 H 134 H Respiratory Rate 0 L 0 L 0 L Blood Pressure 143/68 H 147/75 H Pulse Oximetry 99 98 97 02/11/18 01:30 02/11/18 02:00 02/11/18 02:30 Temperature Pulse Rate 135 H 137 H 137 H Respiratory Rate 0 L 0 L 0 L Blood Pressure 142/64 H 137/68 137/67 Pulse Oximetry 98 97 97 02/11/18 03:00 02/11/18 03:15 02/11/18 03:21 Temperature Pulse Rate 137 H 137 H 137 H Respiratory Rate 0 L 0 L 0 L Blood Pressure 139/62 131/58 L 126/61 Pulse Oximetry 98 97 97 02/11/18 03:30 02/11/18 03:45 02/11/18 03:53 Temperature Pulse Rate 137 H 137 H 135 H Respiratory Rate 0 L 0 L 21 Blood Pressure 119/60 117/56 L Pulse Oximetry 98 98 02/11/18 04:00 02/11/18 04:15 02/11/18 04:18 Temperature Pulse Rate 135 H 135 H Respiratory Rate 0 L 0 L 20 Blood Pressure 115/57 L 104/51 L Pulse Oximetry 97 97 100 02/11/18 04:30 02/11/18 04:45 02/11/18 05:00 Temperature Pulse Rate 133 H 133 H 133 H Respiratory Rate 0 L 0 L 0 L Blood Pressure 100/49 L 98/46 L 93/44 L Pulse Oximetry 96 97 97 02/11/18 05:15 02/11/18 05:30 02/11/18 05:45 Temperature Pulse Rate 133 H 130 H 130 H Respiratory Rate 0 L 0 L 0 L Blood Pressure 96/46 L 93/51 L 90/46 L Pulse Oximetry 98 98 98 02/11/18 06:00 02/11/18 06:15 02/11/18 06:30 Temperature Pulse Rate 130 H 130 H 130 H Respiratory Rate 0 L 15 20 Blood Pressure 88/44 L 91/48 L 94/46 L Pulse Oximetry 97 97 97 02/11/18 06:31 02/11/18 06:45 02/11/18 07:00 Temperature Pulse Rate 130 H 128 H 128 H Respiratory Rate 4 L 0 L 0 L Blood Pressure 94/46 L 91/48 L 92/44 L Pulse Oximetry 97 98 98 02/11/18 07:15 02/11/18 07:24 02/11/18 07:30 Temperature Pulse Rate 128 H 128 H Respiratory Rate 0 L 23 0 L Blood Pressure 100/54 L 100/53 L Pulse Oximetry 93 L 97 99 02/11/18 07:45 02/11/18 08:00 02/11/18 08:15 Temperature Pulse Rate 128 H 128 H 128 H Respiratory Rate 0 L 0 L 0 L Blood Pressure 94/50 L 93/48 L 88/51 L Pulse Oximetry 97 98 98 02/11/18 08:30 02/11/18 08:45 02/11/18 09:00 Temperature Pulse Rate 128 H 128 H 126 H Respiratory Rate 0 L 0 L 0 L Blood Pressure 91/50 L 89/49 L 94/46 L Pulse Oximetry 98 98 98 02/11/18 10:30 02/11/18 10:45 02/11/18 11:00 Temperature Pulse Rate 120 H 120 H 120 H Respiratory Rate 0 L 0 L 0 L Blood Pressure 97/49 L 100/49 L 99/53 L Pulse Oximetry 98 98 97 02/11/18 11:13 02/11/18 11:15 02/11/18 11:30 Temperature Pulse Rate 120 H 120 H Respiratory Rate 24 0 L 0 L Blood Pressure 102/51 L 103/50 L Pulse Oximetry 97 98 98 02/11/18 11:45 02/11/18 12:00 02/11/18 12:15 Temperature Pulse Rate 116 H 117 H 117 H Respiratory Rate 0 L 9 L 1 L Blood Pressure 94/45 L 100/43 L 94/43 L Pulse Oximetry 97 96 96 02/11/18 12:30 02/11/18 12:31 02/11/18 12:32 Temperature Pulse Rate 116 H 116 H 116 H Respiratory Rate 1 L 3 L 1 L Blood Pressure 89/42 L 86/40 L 85/41 L Pulse Oximetry 96 96 96 02/11/18 12:35 02/11/18 12:40 02/11/18 12:45 Temperature Pulse Rate 116 H 117 H 117 H Respiratory Rate 7 L 4 L 1 L Blood Pressure 82/39 L 88/42 L 91/43 L Pulse Oximetry 96 97 97 02/11/18 12:50 02/11/18 12:55 02/11/18 13:00 Temperature Pulse Rate 117 H 117 H 117 H Respiratory Rate 0 L 4 L 5 L Blood Pressure 88/42 L 98/44 L 105/45 L Pulse Oximetry 97 96 96 02/11/18 13:05 02/11/18 13:10 02/11/18 13:15 Temperature Pulse Rate 117 H 117 H 118 H Respiratory Rate 2 L 26 H 15 Blood Pressure 102/44 L 96/44 L 95/46 L Pulse Oximetry 96 98 97 02/11/18 13:20 02/11/18 13:25 02/11/18 13:30 Temperature Pulse Rate 118 H 118 H 118 H Respiratory Rate 24 26 H 19 Blood Pressure 93/45 L 95/46 L 86/42 L Pulse Oximetry 98 98 98 02/11/18 13:35 02/11/18 13:40 02/11/18 15:10 Temperature Pulse Rate 118 H 119 H 120 H Respiratory Rate 20 23 0 L Blood Pressure 88/42 L 98/49 L 105/45 L Pulse Oximetry 97 98 98 02/11/18 15:15 02/11/18 15:20 02/11/18 15:25 Temperature Pulse Rate 121 H 121 H 122 H Respiratory Rate 0 L 0 L 0 L Blood Pressure 104/51 L 104/49 L 102/49 L Pulse Oximetry 98 98 98 02/11/18 15:30 02/11/18 15:33 02/11/18 15:35 Temperature Pulse Rate 122 H 122 H 122 H Respiratory Rate 0 L 26 H 0 L Blood Pressure 97/45 L 99/45 L Pulse Oximetry 99 99 98 07/01/18 15:40 02/11/18 15:41 02/11/18 15:42 Temperature Pulse Rate 120 H 120 H 121 H Respiratory Rate 0 L 0 L 0 L Blood Pressure 99/38 L 92/35 L 95/41 L Pulse Oximetry 93 L 94 L 97 02/11/18 15:45 02/11/18 15:50 02/11/18 15:55 Temperature Pulse Rate 121 H 121 H 120 H Respiratory Rate 0 L 0 L 0 L Blood Pressure 100/47 L 88/42 L 108/51 L Pulse Oximetry 92 L 84 L 94 L 02/11/18 16:00 02/11/18 16:05 02/11/18 16:10 Temperature Pulse Rate 121 H 120 H 119 H Respiratory Rate 0 L 0 L 0 L Blood Pressure 97/48 L 99/49 L 101/51 L Pulse Oximetry 90 L 97 97 02/11/18 16:15 02/11/18 16:20 02/11/18 16:25 Temperature Pulse Rate 120 H 120 H 120 H Respiratory Rate 0 L 0 L 0 L Blood Pressure 98/48 L 94/52 L 93/48 L Pulse Oximetry 97 96 96 02/11/18 16:30 02/11/18 16:35 02/11/18 16:40 Temperature Pulse Rate 120 H 121 H 121 H Respiratory Rate 0 L 0 L 0 L Blood Pressure 92/47 L 92/48 L 93/55 L Pulse Oximetry 96 97 94 L 02/11/18 16:45 02/11/18 16:50 02/11/18 16:55 Temperature Pulse Rate 121 H 121 H 121 H Respiratory Rate 0 L 0 L 0 L Blood Pressure 89/44 L 90/44 L 90/45 L Pulse Oximetry 97 94 L 99 02/11/18 17:00 02/11/18 17:55 02/11/18 18:00 Temperature Pulse Rate 121 H 122 H 122 H Respiratory Rate 7 L 7 L 4 L Blood Pressure 88/46 L 81/41 L 80/43 L Pulse Oximetry 99 89 L 93 L 02/11/18 18:05 02/11/18 18:09 02/11/18 18:11 Temperature Pulse Rate 123 H 123 H 163 H Respiratory Rate 2 L 1 L 22 Blood Pressure 77/38 L 89/53 L 77/40 L Pulse Oximetry 90 L 94 L 90 L 07/01/18 18:14 02/11/18 18:15 02/11/18 18:18 Temperature Pulse Rate 171 H 171 H 170 H Respiratory Rate 23 22 10 L Blood Pressure 67/30 L 67/36 L 64/30 L Pulse Oximetry 87 L 87 L 84 L 02/11/18 18:19 02/11/18 18:20 02/11/18 18:25 Temperature Pulse Rate 167 H 167 H 161 H Respiratory Rate 8 L 9 L 11 L Blood Pressure 49/29 L 52/19 L 53/20 L Pulse Oximetry 80 L 82 L 83 L 02/11/18 18:27 02/11/18 18:30 02/11/18 18:35 Temperature Pulse Rate 155 H 156 H 156 H Respiratory Rate 21 21 23 Blood Pressure 104/65 99/53 L 106/42 L Pulse Oximetry 97 95 93 L 02/11/18 18:40 02/11/18 18:47 02/11/18 18:50 Temperature Pulse Rate 159 H 159 H 156 H Respiratory Rate 24 24 24 Blood Pressure 106/55 L 120/59 L 109/58 L Pulse Oximetry 95 95 95 02/11/18 18:55 02/11/18 19:00 02/11/18 19:05 Temperature Pulse Rate 156 H 156 H 155 H Respiratory Rate 14 12 13 Blood Pressure 100/58 L 99/53 L 97/54 L Pulse Oximetry 96 97 98 02/11/18 19:10 02/11/18 19:15 02/11/18 19:20 Temperature Pulse Rate 153 H 153 H 153 H Respiratory Rate 17 16 16 Blood Pressure 111/55 L 105/57 L 99/55 L Pulse Oximetry 98 87 L 93 L 02/11/18 19:25 02/11/18 19:30 02/11/18 20:00 Temperature 97.6 F Pulse Rate 153 H 153 H 155 H Respiratory Rate 21 7 L 20 Blood Pressure 112/54 L 99/53 L 100/49 L Pulse Oximetry 94 L 95 Intake & Output 02/11/18 02/11/18 02/12/18 06:59 18:59 06:59 Intake Total 2270 / 2270 Output Total 450 / 450 380 / 380 Balance -450 / -450 1890 / 1890 Intake: IV 2270 / 2270 Neosynephrine Inj 160 MG In NS 500 / 500 Inj 484 ML @ 40 MCG/MIN 7.5 mls /hr IV.CONT TITRATE PRN Rx#: [id number] Acetadote Inj 9,850 MG In D5W 1050 / 1050 Inj 1,000 ML @ 62.5 mls/hr IV. SIG ONCE ONE Rx#:[id number] Alburx 5% Inj 500 ML @ 0 mls/hr 500 / 500 IV.SIG .STK-MED ONE Rx#: [id number] Calcium Chloride Inj 2 GM In NS 120 / 120 Inj 100 ML @ As Directed IV. SIG ONCE ONE Rx#:[id number] Zosyn 3.375 GM Premix 50 ML @ 100 / 100 100 mls/hr IV.SIG Q8H ENDY Rx#: [id number] Output: Urine 50 / 50 Stool 400 / 400 150 / 150 Urine Amount (Catheter) 30 / 30 Indwelling Urethral Catheter 30 / 30 Gastric Drainage 200 / 200 Orogastric Tube 200 / 200 - Urinary Catheter Management Indwelling Urethral Catheter Cath placed during this visit: no <Kaden Bunn - Last Filed: 02/11/18 20:52> Results - Labs CBC & Chem 7: 02/11/18 05:15 02/11/18 05:15 Laboratory Results - last 24 hr 02/08/18 02/08/18 02/08/18 08:10 08:10 08:10 WBC RBC Hgb Hct MCV MCH MCHC RDW Plt Count MPV Prelim Diff (Auto) Neut % (Auto) Lymph % (Auto) Casey % (Auto) Eos % (Auto) Baso % (Auto) Neut # (Auto) Lymph # (Auto) Casey # (Auto) Eos # (Auto) Baso # (Auto) CBC Comment WBC Differential Total Counted Neutrophils % (Manual) Seg Neuts % (Manual) Band Neutrophils % Band Neuts % (Manual) Lymphocytes % Lymphocytes % (Manual) Monocytes % Monocytes % (Manual) Metamyelocytes % (Man) Neutrophils # (Manual) Abs Neuts (Manual) Nucleated RBCs/100 WBC Differential Comment Toxic Granulation Platelet Estimate Platelet Morphology Plt Morphology Comment Acanthocytes (Spur) RBC Morph Comment PT INR APTT Fibrinogen Puncture Site Patient Temperature HCO3 Base Excess O2 Saturation ABG pH ABG pCO2 ABG pO2 ABG HCO3 ABG O2 Content ABG Base Excess ABG Carboxyhemoglobin ABG Methemoglobin Cap Carboxyhemoglobin Hemoglobin O2 Delivery Device Vent Setting Inspired O2 Critical Value Sodium 143 Potassium 6.5 H Chloride 104 Carbon Dioxide 9.2 L Anion Gap 30 H BUN 12 Creatinine 1.97 H Estimated GFR 29 L Random Glucose 141 H Serum Osmolality Lactic Acid Calcium 8.2 L Prot Corrected Calcium Phosphorus Magnesium Iron TIBC % Saturation Ferritin Total Bilirubin 0.3 AST 103 H ALT 54 Alkaline Phosphatase 63 Ammonia Total Creatine Kinase 3284 H CK-MB (CK-2) 20.5 H CK-MB (CK-2) % 0.6 Troponin I 0.08 H Total Protein 6.8 Albumin 3.3 L TSH 3rd Generation 2.960 Urine Color Urine Turbidity Urine pH Ur Specific [place] Urine Protein Urine Glucose (UA) Urine Ketones Urine Occult Blood Urine Nitrite Urine Bilirubin Urine Urobilinogen Ur Leukocyte Esterase Urine RBC Urine WBC Amorphous Sediment Urine Bacteria Hyaline Casts Urine Mucus Micro UA Comment Nasal Screen MRSA (PCR) Salicylates 2.9 Urine Opiates Screen NEG Acetaminophen LESS THAN 2.0 L Ur Barbiturates Screen NEG Valproic Acid Ur Amphetamines Screen POS H U Benzodiazepines Scrn NEG Urine Cocaine Screen NEG U Cannabinoids Screen NEG Ethyl Alcohol LESS THAN 3 Hepatitis A IgM Ab Hep Bs Antigen Hep B Core IgM Ab Hep C IgG Ab 02/08/18 02/08/18 02/08/18 08:10 08:10 08:10 WBC RBC Hgb Hct MCV MCH MCHC RDW Plt Count MPV Prelim Diff (Auto) Neut % (Auto) Lymph % (Auto) Casey % (Auto) Eos % (Auto) Baso % (Auto) Neut # (Auto) Lymph # (Auto) Casey # (Auto) Eos # (Auto) Baso # (Auto) CBC Comment WBC Differential Total Counted Neutrophils % (Manual) Seg Neuts % (Manual) Band Neutrophils % Band Neuts % (Manual) Lymphocytes % Lymphocytes % (Manual) Monocytes % Monocytes % (Manual) Metamyelocytes % (Man) Neutrophils # (Manual) Abs Neuts (Manual) Nucleated RBCs/100 WBC Differential Comment Toxic Granulation Platelet Estimate Platelet Morphology Plt Morphology Comment Acanthocytes (Spur) RBC Morph Comment PT 12.8 H INR 1.3 APTT 59.7 H Fibrinogen Puncture Site Patient Temperature HCO3 Base Excess O2 Saturation ABG pH ABG pCO2 ABG pO2 ABG HCO3 ABG O2 Content ABG Base Excess ABG Carboxyhemoglobin ABG Methemoglobin Cap Carboxyhemoglobin Hemoglobin O2 Delivery Device Vent Setting Inspired O2 Critical Value Sodium Potassium Chloride Carbon Dioxide Anion Gap BUN Creatinine Estimated GFR Random Glucose Serum Osmolality Lactic Acid 25.2 H* Calcium Prot Corrected Calcium Phosphorus Magnesium Iron TIBC % Saturation Ferritin Total Bilirubin AST ALT Alkaline Phosphatase Ammonia 1392 H Total Creatine Kinase CK-MB (CK-2) CK-MB (CK-2) % Troponin I Total Protein Albumin TSH 3rd Generation Urine Color Urine Turbidity Urine pH Ur Specific [place] Urine Protein Urine Glucose (UA) Urine Ketones Urine Occult Blood Urine Nitrite Urine Bilirubin Urine Urobilinogen Ur Leukocyte Esterase Urine RBC Urine WBC Amorphous Sediment Urine Bacteria Hyaline Casts Urine Mucus Micro UA Comment Nasal Screen MRSA (PCR) Salicylates Urine Opiates Screen Acetaminophen Ur Barbiturates Screen Valproic Acid Ur Amphetamines Screen U Benzodiazepines Scrn Urine Cocaine Screen U Cannabinoids Screen Ethyl Alcohol Hepatitis A IgM Ab Hep Bs Antigen Hep B Core IgM Ab Hep C IgG Ab 02/08/18 02/08/18 02/08/18 08:10 08:10 10:32 WBC 12.0 H RBC 4.12 L Hgb 12.1 L Hct 41.1 MCV 99.6 MCH 29.4 MCHC 29.6 L RDW 16.6 Plt Count 283 MPV 9.1 Prelim Diff (Auto) Neut % (Auto) 46.3 Lymph % (Auto) 47.9 H Casey % (Auto) 4.8 Eos % (Auto) 0.2 Baso % (Auto) 0.8 Neut # (Auto) 5.6 Lymph # (Auto) 5.7 H Casey # (Auto) 0.6 Eos # (Auto) 0.0 Baso # (Auto) 0.1 CBC Comment AUTO DIFF WBC Differential Total Counted 100 Neutrophils % (Manual) 47 Seg Neuts % (Manual) Band Neutrophils % 3 Band Neuts % (Manual) Lymphocytes % 45 H Lymphocytes % (Manual) Monocytes % 5 Monocytes % (Manual) Metamyelocytes % (Man) Neutrophils # (Manual) 6.0 Abs Neuts (Manual) Nucleated RBCs/100 WBC Differential Comment FINAL DIFF MANUAL Toxic Granulation Platelet Estimate NORMAL Platelet Morphology Plt Morphology Comment NORMAL Acanthocytes (Spur) RBC Morph Comment PT INR APTT Fibrinogen Puncture Site LT FEMORAL Patient Temperature 98.6 HCO3 21 L Base Excess -3.2 L O2 Saturation 97 ABG pH 7.36 L ABG pCO2 39 ABG pO2 282 H ABG HCO3 ABG O2 Content 18.6 ABG Base Excess ABG Carboxyhemoglobin 0.2 ABG Methemoglobin 1.6 Cap Carboxyhemoglobin Hemoglobin 13.1 O2 Delivery Device VENTILATOR Vent Setting 500/10/+5/1.0 Inspired O2 100 Critical Value Sodium Potassium Chloride Carbon Dioxide Anion Gap BUN Creatinine Estimated GFR Random Glucose Serum Osmolality Lactic Acid Calcium Prot Corrected Calcium Phosphorus Magnesium Iron TIBC % Saturation Ferritin Total Bilirubin AST ALT Alkaline Phosphatase Ammonia Total Creatine Kinase CK-MB (CK-2) CK-MB (CK-2) % Troponin I Total Protein Albumin TSH 3rd Generation Urine Color Crystal Urine Turbidity CLOUDY H Urine pH 5.0 Ur Specific [place] 1.027 Urine Protein 100 H Urine Glucose (UA) NEG Urine Ketones TRACE H Urine Occult Blood SMALL H Urine Nitrite NEG Urine Bilirubin NEG Urine Urobilinogen 2.0 H Ur Leukocyte Esterase NEG Urine RBC 15 H Urine WBC 12 H Amorphous Sediment RARE Urine Bacteria RARE H Hyaline Casts 3 Urine Mucus FEW H Micro UA Comment CATH-CULTURE IND Nasal Screen MRSA (PCR) Salicylates Urine Opiates Screen Acetaminophen Ur Barbiturates Screen Valproic Acid Ur Amphetamines Screen U Benzodiazepines Scrn Urine Cocaine Screen U Cannabinoids Screen Ethyl Alcohol Hepatitis A IgM Ab Hep Bs Antigen Hep B Core IgM Ab Hep C IgG Ab 02/08/18 02/08/18 02/08/18 11:17 11:17 12:22 WBC RBC Hgb Hct MCV MCH MCHC RDW Plt Count MPV Prelim Diff (Auto) Neut % (Auto) Lymph % (Auto) Casey % (Auto) Eos % (Auto) Baso % (Auto) Neut # (Auto) Lymph # (Auto) Casey # (Auto) Eos # (Auto) Baso # (Auto) CBC Comment WBC Differential Total Counted Neutrophils % (Manual) Seg Neuts % (Manual) Band Neutrophils % Band Neuts % (Manual) Lymphocytes % Lymphocytes % (Manual) Monocytes % Monocytes % (Manual) Metamyelocytes % (Man) Neutrophils # (Manual) Abs Neuts (Manual) Nucleated RBCs/100 WBC Differential Comment Toxic Granulation Platelet Estimate Platelet Morphology Plt Morphology Comment Acanthocytes (Spur) RBC Morph Comment PT INR APTT Fibrinogen Puncture Site Patient Temperature HCO3 Base Excess O2 Saturation ABG pH ABG pCO2 ABG pO2 ABG HCO3 ABG O2 Content ABG Base Excess ABG Carboxyhemoglobin ABG Methemoglobin Cap Carboxyhemoglobin Hemoglobin O2 Delivery Device Vent Setting Inspired O2 Critical Value Sodium 143 Potassium 3.2 L D Chloride 107 Carbon Dioxide 23.3 D Anion Gap 13 BUN 13 Creatinine 1.60 H Estimated GFR 37 L Random Glucose 26 L* D Serum Osmolality Lactic Acid 3.0 H Calcium 6.4 L* D Prot Corrected Calcium 6.5 L* Phosphorus Magnesium Iron TIBC % Saturation Ferritin Total Bilirubin AST ALT Alkaline Phosphatase Ammonia Total Creatine Kinase CK-MB (CK-2) CK-MB (CK-2) % Troponin I Total Protein 7.0 Albumin TSH 3rd Generation Urine Color Urine Turbidity Urine pH Ur Specific [place] Urine Protein Urine Glucose (UA) Urine Ketones Urine Occult Blood Urine Nitrite Urine Bilirubin Urine Urobilinogen Ur Leukocyte Esterase Urine RBC Urine WBC Amorphous Sediment Urine Bacteria Hyaline Casts Urine Mucus Micro UA Comment Nasal Screen MRSA (PCR) MRSA NOT DETECTED Salicylates Urine Opiates Screen Acetaminophen Ur Barbiturates Screen Valproic Acid Ur Amphetamines Screen U Benzodiazepines Scrn Urine Cocaine Screen U Cannabinoids Screen Ethyl Alcohol Hepatitis A IgM Ab Hep Bs Antigen Hep B Core IgM Ab Hep C IgG Ab 02/08/18 02/08/18 02/08/18 12:31 12:31 12:31 WBC RBC Hgb Hct MCV MCH MCHC RDW Plt Count MPV Prelim Diff (Auto) Neut % (Auto) Lymph % (Auto) Casey % (Auto) Eos % (Auto) Baso % (Auto) Neut # (Auto) Lymph # (Auto) Casey # (Auto) Eos # (Auto) Baso # (Auto) CBC Comment WBC Differential Total Counted Neutrophils % (Manual) Seg Neuts % (Manual) Band Neutrophils % Band Neuts % (Manual) Lymphocytes % Lymphocytes % (Manual) Monocytes % Monocytes % (Manual) Metamyelocytes % (Man) Neutrophils # (Manual) Abs Neuts (Manual) Nucleated RBCs/100 WBC Differential Comment Toxic Granulation Platelet Estimate Platelet Morphology Plt Morphology Comment Acanthocytes (Spur) RBC Morph Comment PT INR APTT Fibrinogen Puncture Site Patient Temperature HCO3 Base Excess O2 Saturation ABG pH ABG pCO2 ABG pO2 ABG HCO3 ABG O2 Content ABG Base Excess ABG Carboxyhemoglobin ABG Methemoglobin Cap Carboxyhemoglobin Hemoglobin O2 Delivery Device Vent Setting Inspired O2 Critical Value Sodium Potassium Chloride Carbon Dioxide Anion Gap BUN Creatinine Estimated GFR Random Glucose Serum Osmolality Lactic Acid Calcium Prot Corrected Calcium Phosphorus 4.2 Magnesium Iron TIBC % Saturation Ferritin Total Bilirubin AST ALT Alkaline Phosphatase Ammonia 50 H Total Creatine Kinase CK-MB (CK-2) CK-MB (CK-2) % Troponin I Total Protein Albumin TSH 3rd Generation Urine Color Urine Turbidity Urine pH Ur Specific [place] Urine Protein Urine Glucose (UA) Urine Ketones Urine Occult Blood Urine Nitrite Urine Bilirubin Urine Urobilinogen Ur Leukocyte Esterase Urine RBC Urine WBC Amorphous Sediment Urine Bacteria Hyaline Casts Urine Mucus Micro UA Comment Nasal Screen MRSA (PCR) Salicylates Urine Opiates Screen Acetaminophen Ur Barbiturates Screen Valproic Acid 3 L Ur Amphetamines Screen U Benzodiazepines Scrn Urine Cocaine Screen U Cannabinoids Screen Ethyl Alcohol Hepatitis A IgM Ab Hep Bs Antigen Hep B Core IgM Ab Hep C IgG Ab 02/08/18 02/08/18 02/08/18 14:11 16:22 16:22 WBC RBC Hgb Hct MCV MCH MCHC RDW Plt Count MPV Prelim Diff (Auto) Neut % (Auto) Lymph % (Auto) Casey % (Auto) Eos % (Auto) Baso % (Auto) Neut # (Auto) Lymph # (Auto) Casey # (Auto) Eos # (Auto) Baso # (Auto) CBC Comment WBC Differential Total Counted Neutrophils % (Manual) Seg Neuts % (Manual) Band Neutrophils % Band Neuts % (Manual) Lymphocytes % Lymphocytes % (Manual) Monocytes % Monocytes % (Manual) Metamyelocytes % (Man) Neutrophils # (Manual) Abs Neuts (Manual) Nucleated RBCs/100 WBC Differential Comment Toxic Granulation Platelet Estimate Platelet Morphology Plt Morphology Comment Acanthocytes (Spur) RBC Morph Comment PT INR APTT Fibrinogen Puncture Site Patient Temperature HCO3 Base Excess O2 Saturation ABG pH ABG pCO2 ABG pO2 ABG HCO3 ABG O2 Content ABG Base Excess ABG Carboxyhemoglobin ABG Methemoglobin Cap Carboxyhemoglobin Hemoglobin O2 Delivery Device Vent Setting Inspired O2 Critical Value Sodium Potassium Chloride Carbon Dioxide Anion Gap BUN Creatinine Estimated GFR Random Glucose Serum Osmolality 302 H Lactic Acid 1.2 Calcium Prot Corrected Calcium Phosphorus Magnesium Iron TIBC % Saturation Ferritin Total Bilirubin AST ALT Alkaline Phosphatase Ammonia 53 H Total Creatine Kinase CK-MB (CK-2) CK-MB (CK-2) % Troponin I Total Protein Albumin TSH 3rd Generation Urine Color Urine Turbidity Urine pH Ur Specific [place] Urine Protein Urine Glucose (UA) Urine Ketones Urine Occult Blood Urine Nitrite Urine Bilirubin Urine Urobilinogen Ur Leukocyte Esterase Urine RBC Urine WBC Amorphous Sediment Urine Bacteria Hyaline Casts Urine Mucus Micro UA Comment Nasal Screen MRSA (PCR) Salicylates Urine Opiates Screen Acetaminophen Ur Barbiturates Screen Valproic Acid Ur Amphetamines Screen U Benzodiazepines Scrn Urine Cocaine Screen U Cannabinoids Screen Ethyl Alcohol Hepatitis A IgM Ab Hep Bs Antigen Hep B Core IgM Ab Hep C IgG Ab 02/08/18 02/08/18 02/09/18 18:00 23:07 03:56 WBC RBC Hgb Hct MCV MCH MCHC RDW Plt Count MPV Prelim Diff (Auto) Neut % (Auto) Lymph % (Auto) Casey % (Auto) Eos % (Auto) Baso % (Auto) Neut # (Auto) Lymph # (Auto) Casey # (Auto) Eos # (Auto) Baso # (Auto) CBC Comment WBC Differential Total Counted Neutrophils % (Manual) Seg Neuts % (Manual) Band Neutrophils % Band Neuts % (Manual) Lymphocytes % Lymphocytes % (Manual) Monocytes % Monocytes % (Manual) Metamyelocytes % (Man) Neutrophils # (Manual) Abs Neuts (Manual) Nucleated RBCs/100 WBC Differential Comment Toxic Granulation Platelet Estimate Platelet Morphology Plt Morphology Comment Acanthocytes (Spur) RBC Morph Comment PT INR APTT Fibrinogen Puncture Site Patient Temperature HCO3 Base Excess O2 Saturation ABG pH ABG pCO2 ABG pO2 ABG HCO3 ABG O2 Content ABG Base Excess ABG Carboxyhemoglobin ABG Methemoglobin Cap Carboxyhemoglobin Hemoglobin O2 Delivery Device Vent Setting Inspired O2 Critical Value Sodium 142 141 Potassium 3.9 4.6 Chloride 107 109 H Carbon Dioxide 24.2 22.7 Anion Gap 11 9 BUN 19 H 26 H Creatinine 1.89 H 2.60 H Estimated GFR 31 L 21 L Random Glucose 123 H 129 H Serum Osmolality Lactic Acid 0.9 Calcium 6.6 L* 6.3 L* Prot Corrected Calcium 6.9 L* 6.7 L* Phosphorus Magnesium Iron TIBC % Saturation Ferritin Total Bilirubin 1.1 H AST 2631 H ALT 583 H Alkaline Phosphatase 97 Ammonia Total Creatine Kinase 016992 H CK-MB (CK-2) 1505.3 H CK-MB (CK-2) % 1.1 Troponin I Total Protein 6.6 6.3 L Albumin 3.0 L TSH 3rd Generation Urine Color Urine Turbidity Urine pH Ur Specific [place] Urine Protein Urine Glucose (UA) Urine Ketones Urine Occult Blood Urine Nitrite Urine Bilirubin Urine Urobilinogen Ur Leukocyte Esterase Urine RBC Urine WBC Amorphous Sediment Urine Bacteria Hyaline Casts Urine Mucus Micro UA Comment Nasal Screen MRSA (PCR) Salicylates Urine Opiates Screen Acetaminophen Ur Barbiturates Screen Valproic Acid Ur Amphetamines Screen U Benzodiazepines Scrn Urine Cocaine Screen U Cannabinoids Screen Ethyl Alcohol Hepatitis A IgM Ab Hep Bs Antigen Hep B Core IgM Ab Hep C IgG Ab 02/09/18 02/09/18 02/09/18 03:56 03:56 03:56 WBC 21.4 H D RBC 4.85 Hgb 14.4 D Hct 44.0 MCV 90.7 D MCH 29.7 MCHC 32.7 RDW 16.1 Plt Count 119 L D MPV 8.1 Prelim Diff (Auto) Neut % (Auto) 95.5 H Lymph % (Auto) 2.6 L Casey % (Auto) 1.8 Eos % (Auto) 0.0 Baso % (Auto) 0.1 Neut # (Auto) 20.4 H Lymph # (Auto) 0.6 L Casey # (Auto) 0.4 Eos # (Auto) 0.0 Baso # (Auto) 0.0 CBC Comment DIFF FINAL WBC Differential Total Counted Neutrophils % (Manual) Seg Neuts % (Manual) Band Neutrophils % Band Neuts % (Manual) Lymphocytes % Lymphocytes % (Manual) Monocytes % Monocytes % (Manual) Metamyelocytes % (Man) Neutrophils # (Manual) Abs Neuts (Manual) Nucleated RBCs/100 WBC Differential Comment Toxic Granulation Platelet Estimate Platelet Morphology Plt Morphology Comment Acanthocytes (Spur) RBC Morph Comment PT INR APTT Fibrinogen Puncture Site Patient Temperature HCO3 Base Excess O2 Saturation ABG pH ABG pCO2 ABG pO2 ABG HCO3 ABG O2 Content ABG Base Excess ABG Carboxyhemoglobin ABG Methemoglobin Cap Carboxyhemoglobin Hemoglobin O2 Delivery Device Vent Setting Inspired O2 Critical Value Sodium Potassium Chloride Carbon Dioxide Anion Gap BUN Creatinine Estimated GFR Random Glucose Serum Osmolality Lactic Acid 1.0 Calcium Prot Corrected Calcium Phosphorus Magnesium Iron TIBC % Saturation Ferritin Total Bilirubin AST ALT Alkaline Phosphatase Ammonia 100 H Total Creatine Kinase CK-MB (CK-2) CK-MB (CK-2) % Troponin I Total Protein Albumin TSH 3rd Generation Urine Color Urine Turbidity Urine pH Ur Specific [place] Urine Protein Urine Glucose (UA) Urine Ketones Urine Occult Blood Urine Nitrite Urine Bilirubin Urine Urobilinogen Ur Leukocyte Esterase Urine RBC Urine WBC Amorphous Sediment Urine Bacteria Hyaline Casts Urine Mucus Micro UA Comment Nasal Screen MRSA (PCR) Salicylates Urine Opiates Screen Acetaminophen Ur Barbiturates Screen Valproic Acid Ur Amphetamines Screen U Benzodiazepines Scrn Urine Cocaine Screen U Cannabinoids Screen Ethyl Alcohol Hepatitis A IgM Ab Hep Bs Antigen Hep B Core IgM Ab Hep C IgG Ab 02/09/18 02/09/18 02/09/18 09:20 09:20 09:20 WBC RBC Hgb Hct MCV MCH MCHC RDW Plt Count MPV Prelim Diff (Auto) Neut % (Auto) Lymph % (Auto) Casey % (Auto) Eos % (Auto) Baso % (Auto) Neut # (Auto) Lymph # (Auto) Casey # (Auto) Eos # (Auto) Baso # (Auto) CBC Comment WBC Differential Total Counted Neutrophils % (Manual) Seg Neuts % (Manual) Band Neutrophils % Band Neuts % (Manual) Lymphocytes % Lymphocytes % (Manual) Monocytes % Monocytes % (Manual) Metamyelocytes % (Man) Neutrophils # (Manual) Abs Neuts (Manual) Nucleated RBCs/100 WBC Differential Comment Toxic Granulation Platelet Estimate Platelet Morphology Plt Morphology Comment Acanthocytes (Spur) RBC Morph Comment PT 18.1 H D INR 1.8 APTT Fibrinogen 120 L Puncture Site Patient Temperature HCO3 Base Excess O2 Saturation ABG pH ABG pCO2 ABG pO2 ABG HCO3 ABG O2 Content ABG Base Excess ABG Carboxyhemoglobin ABG Methemoglobin Cap Carboxyhemoglobin Hemoglobin O2 Delivery Device Vent Setting Inspired O2 Critical Value Sodium 143 Potassium 4.7 Chloride 111 H Carbon Dioxide 22.1 Anion Gap 10 BUN 28 H Creatinine 3.05 H Estimated GFR 18 L Random Glucose 127 H Serum Osmolality Lactic Acid Calcium 7.5 L D Prot Corrected Calcium Phosphorus Magnesium 4.0 H Iron TIBC % Saturation Ferritin Total Bilirubin AST ALT Alkaline Phosphatase Ammonia Total Creatine Kinase CK-MB (CK-2) CK-MB (CK-2) % Troponin I Total Protein Albumin TSH 3rd Generation Urine Color Urine Turbidity Urine pH Ur Specific [place] Urine Protein Urine Glucose (UA) Urine Ketones Urine Occult Blood Urine Nitrite Urine Bilirubin Urine Urobilinogen Ur Leukocyte Esterase Urine RBC Urine WBC Amorphous Sediment Urine Bacteria Hyaline Casts Urine Mucus Micro UA Comment Nasal Screen MRSA (PCR) Salicylates Urine Opiates Screen Acetaminophen Ur Barbiturates Screen Valproic Acid Ur Amphetamines Screen U Benzodiazepines Scrn Urine Cocaine Screen U Cannabinoids Screen Ethyl Alcohol Hepatitis A IgM Ab NONREACTIVE Hep Bs Antigen NONREACTIVE Hep B Core IgM Ab NONREACTIVE Hep C IgG Ab REACTIVE H 02/09/18 02/10/18 02/10/18 22:10 04:00 04:00 WBC RBC Hgb Hct MCV MCH MCHC RDW Plt Count MPV Prelim Diff (Auto) Neut % (Auto) Lymph % (Auto) Casey % (Auto) Eos % (Auto) Baso % (Auto) Neut # (Auto) Lymph # (Auto) Casey # (Auto) Eos # (Auto) Baso # (Auto) CBC Comment WBC Differential Total Counted Neutrophils % (Manual) Seg Neuts % (Manual) Band Neutrophils % Band Neuts % (Manual) Lymphocytes % Lymphocytes % (Manual) Monocytes % Monocytes % (Manual) Metamyelocytes % (Man) Neutrophils # (Manual) Abs Neuts (Manual) Nucleated RBCs/100 WBC Differential Comment Toxic Granulation Platelet Estimate Platelet Morphology Plt Morphology Comment Acanthocytes (Spur) RBC Morph Comment PT 18.2 H INR 1.8 APTT Fibrinogen Puncture Site Patient Temperature HCO3 Base Excess O2 Saturation ABG pH ABG pCO2 ABG pO2 ABG HCO3 ABG O2 Content ABG Base Excess ABG Carboxyhemoglobin ABG Methemoglobin Cap Carboxyhemoglobin Hemoglobin O2 Delivery Device Vent Setting Inspired O2 Critical Value Sodium 142 143 Potassium 5.4 H 5.3 H Chloride 108 H 107 Carbon Dioxide 23.5 22.0 Anion Gap 11 14 BUN 34 H 38 H Creatinine 3.97 H 4.62 H Estimated GFR 13 L 11 L Random Glucose 90 94 Serum Osmolality Lactic Acid Calcium 5.6 L* D 6.2 L* Prot Corrected Calcium 6.1 L* D 7.1 L* Phosphorus Magnesium 3.3 H D 3.0 H Iron 157 TIBC 167 L % Saturation 94.2 H Ferritin 2162 H Total Bilirubin 1.5 H AST 4303 H ALT 1637 H Alkaline Phosphatase 110 Ammonia Total Creatine Kinase 078324 H CK-MB (CK-2) 1446.6 H CK-MB (CK-2) % 0.8 Troponin I Total Protein 5.8 L 5.2 L D Albumin 2.2 L D TSH 3rd Generation Urine Color Urine Turbidity Urine pH Ur Specific [place] Urine Protein Urine Glucose (UA) Urine Ketones Urine Occult Blood Urine Nitrite Urine Bilirubin Urine Urobilinogen Ur Leukocyte Esterase Urine RBC Urine WBC Amorphous Sediment Urine Bacteria Hyaline Casts Urine Mucus Micro UA Comment Nasal Screen MRSA (PCR) Salicylates Urine Opiates Screen Acetaminophen Ur Barbiturates Screen Valproic Acid Ur Amphetamines Screen U Benzodiazepines Scrn Urine Cocaine Screen U Cannabinoids Screen Ethyl Alcohol Hepatitis A IgM Ab Hep Bs Antigen Hep B Core IgM Ab Hep C IgG Ab 02/10/18 02/10/18 02/10/18 06:00 06:15 07:52 WBC 18.4 H RBC 4.37 L Hgb 13.0 Hct 40.0 MCV 91.5 MCH 29.7 MCHC 32.4 RDW 16.2 Plt Count 99 L MPV 9.6 Prelim Diff (Auto) Neut % (Auto) 93.0 H Lymph % (Auto) 4.3 L Casey % (Auto) 2.6 Eos % (Auto) 0.0 Baso % (Auto) 0.1 Neut # (Auto) 17.1 H Lymph # (Auto) 0.8 L Casey # (Auto) 0.5 Eos # (Auto) 0.0 Baso # (Auto) 0.0 CBC Comment AUTO DIFF WBC Differential Total Counted 100 Neutrophils % (Manual) 65 Seg Neuts % (Manual) Band Neutrophils % 31 H Band Neuts % (Manual) Lymphocytes % 1 L Lymphocytes % (Manual) Monocytes % 3 Monocytes % (Manual) Metamyelocytes % (Man) Neutrophils # (Manual) 17.7 H Abs Neuts (Manual) Nucleated RBCs/100 WBC Differential Comment FINAL DIFF MANUAL Toxic Granulation Platelet Estimate LOW L Platelet Morphology Plt Morphology Comment NORMAL Acanthocytes (Spur) RBC Morph Comment NORMAL PT INR APTT Fibrinogen Puncture Site RT BRACHIAL Patient Temperature 98.6 HCO3 20 L Base Excess -9.3 L O2 Saturation 94 ABG pH 7.06 L* ABG pCO2 74 H* ABG pO2 103 ABG HCO3 ABG O2 Content 17.7 ABG Base Excess ABG Carboxyhemoglobin 0.8 ABG Methemoglobin 1.9 Cap Carboxyhemoglobin Hemoglobin 13.3 O2 Delivery Device VENTILATOR Vent Setting PRVC/AC Inspired O2 35 Critical Value Sodium Potassium Chloride Carbon Dioxide Anion Gap BUN Creatinine Estimated GFR Random Glucose Serum Osmolality Lactic Acid Calcium Prot Corrected Calcium Phosphorus Magnesium Iron TIBC % Saturation Ferritin Total Bilirubin AST ALT Alkaline Phosphatase Ammonia 106 H Total Creatine Kinase CK-MB (CK-2) CK-MB (CK-2) % Troponin I Total Protein Albumin TSH 3rd Generation Urine Color Urine Turbidity Urine pH Ur Specific [place] Urine Protein Urine Glucose (UA) Urine Ketones Urine Occult Blood Urine Nitrite Urine Bilirubin Urine Urobilinogen Ur Leukocyte Esterase Urine RBC Urine WBC Amorphous Sediment Urine Bacteria Hyaline Casts Urine Mucus Micro UA Comment Nasal Screen MRSA (PCR) Salicylates Urine Opiates Screen Acetaminophen Ur Barbiturates Screen Valproic Acid Ur Amphetamines Screen U Benzodiazepines Scrn Urine Cocaine Screen U Cannabinoids Screen Ethyl Alcohol Hepatitis A IgM Ab Hep Bs Antigen Hep B Core IgM Ab Hep C IgG Ab 02/10/18 02/11/18 02/11/18 11:47 05:15 05:15 WBC RBC Hgb Hct MCV MCH MCHC RDW Plt Count MPV Prelim Diff (Auto) Neut % (Auto) Lymph % (Auto) Casey % (Auto) Eos % (Auto) Baso % (Auto) Neut # (Auto) Lymph # (Auto) Casey # (Auto) Eos # (Auto) Baso # (Auto) CBC Comment WBC Differential Total Counted Neutrophils % (Manual) Seg Neuts % (Manual) Band Neutrophils % Band Neuts % (Manual) Lymphocytes % Lymphocytes % (Manual) Monocytes % Monocytes % (Manual) Metamyelocytes % (Man) Neutrophils # (Manual) Abs Neuts (Manual) Nucleated RBCs/100 WBC Differential Comment Toxic Granulation Platelet Estimate Platelet Morphology Plt Morphology Comment Acanthocytes (Spur) RBC Morph Comment PT 17.4 H INR 1.7 APTT 41.9 H Fibrinogen 464 H Puncture Site ART LINE Patient Temperature 98.6 HCO3 16 L* Base Excess -10.7 L O2 Saturation 95 ABG pH 7.16 L* ABG pCO2 48 H ABG pO2 117 ABG HCO3 ABG O2 Content 17.0 ABG Base Excess ABG Carboxyhemoglobin 0.8 ABG Methemoglobin 1.9 Cap Carboxyhemoglobin Hemoglobin 12.6 O2 Delivery Device VENTILATOR Vent Setting Inspired O2 35 Critical Value Sodium Potassium Chloride Carbon Dioxide Anion Gap BUN Creatinine Estimated GFR Random Glucose Serum Osmolality Lactic Acid Calcium Prot Corrected Calcium Phosphorus Magnesium Iron TIBC % Saturation Ferritin Total Bilirubin AST ALT Alkaline Phosphatase Ammonia 38 H Total Creatine Kinase CK-MB (CK-2) CK-MB (CK-2) % Troponin I Total Protein Albumin TSH 3rd Generation Urine Color Urine Turbidity Urine pH Ur Specific [place] Urine Protein Urine Glucose (UA) Urine Ketones Urine Occult Blood Urine Nitrite Urine Bilirubin Urine Urobilinogen Ur Leukocyte Esterase Urine RBC Urine WBC Amorphous Sediment Urine Bacteria Hyaline Casts Urine Mucus Micro UA Comment Nasal Screen MRSA (PCR) Salicylates Urine Opiates Screen Acetaminophen Ur Barbiturates Screen Valproic Acid Ur Amphetamines Screen U Benzodiazepines Scrn Urine Cocaine Screen U Cannabinoids Screen Ethyl Alcohol Hepatitis A IgM Ab Hep Bs Antigen Hep B Core IgM Ab Hep C IgG Ab 02/11/18 02/11/18 02/11/18 05:15 05:15 07:07 WBC 28.0 H RBC 4.20 L Hgb 12.5 L Hct 37.7 L MCV 89.9 MCH 29.8 MCHC 33.2 RDW 16.0 Plt Count 68 L MPV 10.0 Prelim Diff (Auto) Slide review pending Neut % (Auto) 94.3 H Lymph % (Auto) 3.2 L Casey % (Auto) 2.3 Eos % (Auto) 0.0 Baso % (Auto) 0.2 Neut # (Auto) 26.4 H Lymph # (Auto) 0.9 L Casey # (Auto) 0.7 Eos # (Auto) 0.0 Baso # (Auto) 0.0 CBC Comment WBC Differential Manual diff final Total Counted Neutrophils % (Manual) Seg Neuts % (Manual) 49 Band Neutrophils % Band Neuts % (Manual) 30 H Lymphocytes % Lymphocytes % (Manual) 6 L Monocytes % Monocytes % (Manual) 5 Metamyelocytes % (Man) 10 H Neutrophils # (Manual) Abs Neuts (Manual) 24.9 H Nucleated RBCs/100 WBC 1 H Differential Comment . Toxic Granulation 1+ H Platelet Estimate Low L Platelet Morphology Normal Plt Morphology Comment Acanthocytes (Spur) 1+ H RBC Morph Comment PT INR APTT Fibrinogen Puncture Site Art line Patient Temperature 98.6 HCO3 Base Excess O2 Saturation 93 ABG pH 7.16 L* ABG pCO2 34 L ABG pO2 98 ABG HCO3 12 L* ABG O2 Content 16.2 ABG Base Excess -15.4 L ABG Carboxyhemoglobin ABG Methemoglobin 1.7 Cap Carboxyhemoglobin 0.4 Hemoglobin 12.3 O2 Delivery Device Ventilator Vent Setting Prvc/ac Inspired O2 35 Critical Value Yes Sodium 140 Potassium 5.6 H Chloride 104 Carbon Dioxide 12.5 L Anion Gap 24 H BUN 46 H Creatinine 6.04 H Estimated GFR 8 L Random Glucose 98 Serum Osmolality Lactic Acid Calcium 5.1 L* Prot Corrected Calcium 6.0 L* Phosphorus 8.9 H Magnesium 1.8 Iron TIBC % Saturation Ferritin Total Bilirubin 1.7 H AST 3047 H ALT 1317 H Alkaline Phosphatase 109 Ammonia Total Creatine Kinase 258103 H CK-MB (CK-2) 808.8 H CK-MB (CK-2) % 0.5 Troponin I Total Protein 4.8 L Albumin 1.7 L TSH 3rd Generation Urine Color Urine Turbidity Urine pH Ur Specific [place] Urine Protein Urine Glucose (UA) Urine Ketones Urine Occult Blood Urine Nitrite Urine Bilirubin Urine Urobilinogen Ur Leukocyte Esterase Urine RBC Urine WBC Amorphous Sediment Urine Bacteria Hyaline Casts Urine Mucus Micro UA Comment Nasal Screen MRSA (PCR) Salicylates Urine Opiates Screen Acetaminophen Ur Barbiturates Screen Valproic Acid Ur Amphetamines Screen U Benzodiazepines Scrn Urine Cocaine Screen U Cannabinoids Screen Ethyl Alcohol Hepatitis A IgM Ab Hep Bs Antigen Hep B Core IgM Ab Hep C IgG Ab 02/11/18 18:17 WBC RBC Hgb Hct MCV MCH MCHC RDW Plt Count MPV Prelim Diff (Auto) Neut % (Auto) Lymph % (Auto) Casey % (Auto) Eos % (Auto) Baso % (Auto) Neut # (Auto) Lymph # (Auto) Casey # (Auto) Eos # (Auto) Baso # (Auto) CBC Comment WBC Differential Total Counted Neutrophils % (Manual) Seg Neuts % (Manual) Band Neutrophils % Band Neuts % (Manual) Lymphocytes % Lymphocytes % (Manual) Monocytes % Monocytes % (Manual) Metamyelocytes % (Man) Neutrophils # (Manual) Abs Neuts (Manual) Nucleated RBCs/100 WBC Differential Comment Toxic Granulation Platelet Estimate Platelet Morphology Plt Morphology Comment Acanthocytes (Spur) RBC Morph Comment PT INR APTT Fibrinogen Puncture Site Art line Patient Temperature 98.6 HCO3 Base Excess O2 Saturation 97 ABG pH 7.17 L* ABG pCO2 40 ABG pO2 238 H ABG HCO3 14 L* ABG O2 Content 16.4 ABG Base Excess -13.1 L ABG Carboxyhemoglobin ABG Methemoglobin 1.6 Cap Carboxyhemoglobin 0.3 Hemoglobin 11.7 L O2 Delivery Device Ventilator Vent Setting Prvc/ac Inspired O2 100 Critical Value Yes Sodium Potassium Chloride Carbon Dioxide Anion Gap BUN Creatinine Estimated GFR Random Glucose Serum Osmolality Lactic Acid Calcium Prot Corrected Calcium Phosphorus Magnesium Iron TIBC % Saturation Ferritin Total Bilirubin AST ALT Alkaline Phosphatase Ammonia Total Creatine Kinase CK-MB (CK-2) CK-MB (CK-2) % Troponin I Total Protein Albumin TSH 3rd Generation Urine Color Urine Turbidity Urine pH Ur Specific [place] Urine Protein Urine Glucose (UA) Urine Ketones Urine Occult Blood Urine Nitrite Urine Bilirubin Urine Urobilinogen Ur Leukocyte Esterase Urine RBC Urine WBC Amorphous Sediment Urine Bacteria Hyaline Casts Urine Mucus Micro UA Comment Nasal Screen MRSA (PCR) Salicylates Urine Opiates Screen Acetaminophen Ur Barbiturates Screen Valproic Acid Ur Amphetamines Screen U Benzodiazepines Scrn Urine Cocaine Screen U Cannabinoids Screen Ethyl Alcohol Hepatitis A IgM Ab Hep Bs Antigen Hep B Core IgM Ab Hep C IgG Ab <Rena Martin - Last Filed: 02/11/18 18:26> - Labs CBC & Chem 7: 02/11/18 05:15 02/11/18 05:15 Laboratory Results - last 24 hr 02/08/18 02/08/18 02/08/18 08:10 08:10 08:10 WBC RBC Hgb Hct MCV MCH MCHC RDW Plt Count MPV Prelim Diff (Auto) Neut % (Auto) Lymph % (Auto) Casey % (Auto) Eos % (Auto) Baso % (Auto) Neut # (Auto) Lymph # (Auto) Casey # (Auto) Eos # (Auto) Baso # (Auto) CBC Comment WBC Differential Total Counted Neutrophils % (Manual) Seg Neuts % (Manual) Band Neutrophils % Band Neuts % (Manual) Lymphocytes % Lymphocytes % (Manual) Monocytes % Monocytes % (Manual) Metamyelocytes % (Man) Neutrophils # (Manual) Abs Neuts (Manual) Nucleated RBCs/100 WBC Differential Comment Toxic Granulation Platelet Estimate Platelet Morphology Plt Morphology Comment Acanthocytes (Spur) RBC Morph Comment PT INR APTT Fibrinogen Puncture Site Patient Temperature HCO3 Base Excess O2 Saturation ABG pH ABG pCO2 ABG pO2 ABG HCO3 ABG O2 Content ABG Base Excess ABG Carboxyhemoglobin ABG Methemoglobin Cap Carboxyhemoglobin Hemoglobin O2 Delivery Device Vent Setting Inspired O2 Critical Value Sodium 143 Potassium 6.5 H Chloride 104 Carbon Dioxide 9.2 L Anion Gap 30 H BUN 12 Creatinine 1.97 H Estimated GFR 29 L POC Glucose Random Glucose 141 H Serum Osmolality Lactic Acid Calcium 8.2 L Prot Corrected Calcium Phosphorus Magnesium Iron TIBC % Saturation Ferritin Total Bilirubin 0.3 AST 103 H ALT 54 Alkaline Phosphatase 63 Ammonia Total Creatine Kinase 3284 H CK-MB (CK-2) 20.5 H CK-MB (CK-2) % 0.6 Troponin I 0.08 H Total Protein 6.8 Albumin 3.3 L TSH 3rd Generation 2.960 Urine Color Urine Turbidity Urine pH Ur Specific [place] Urine Protein Urine Glucose (UA) Urine Ketones Urine Occult Blood Urine Nitrite Urine Bilirubin Urine Urobilinogen Ur Leukocyte Esterase Urine RBC Urine WBC Amorphous Sediment Urine Bacteria Hyaline Casts Urine Mucus Micro UA Comment Nasal Screen MRSA (PCR) Salicylates 2.9 Urine Opiates Screen NEG Acetaminophen LESS THAN 2.0 L Ur Barbiturates Screen NEG Valproic Acid Ur Amphetamines Screen POS H U Benzodiazepines Scrn NEG Urine Cocaine Screen NEG U Cannabinoids Screen NEG Ethyl Alcohol LESS THAN 3 Hepatitis A IgM Ab Hep Bs Antigen Hep B Core IgM Ab Hep C IgG Ab 02/08/18 02/08/18 02/08/18 08:10 08:10 08:10 WBC RBC Hgb Hct MCV MCH MCHC RDW Plt Count MPV Prelim Diff (Auto) Neut % (Auto) Lymph % (Auto) Casey % (Auto) Eos % (Auto) Baso % (Auto) Neut # (Auto) Lymph # (Auto) Casey # (Auto) Eos # (Auto) Baso # (Auto) CBC Comment WBC Differential Total Counted Neutrophils % (Manual) Seg Neuts % (Manual) Band Neutrophils % Band Neuts % (Manual) Lymphocytes % Lymphocytes % (Manual) Monocytes % Monocytes % (Manual) Metamyelocytes % (Man) Neutrophils # (Manual) Abs Neuts (Manual) Nucleated RBCs/100 WBC Differential Comment Toxic Granulation Platelet Estimate Platelet Morphology Plt Morphology Comment Acanthocytes (Spur) RBC Morph Comment PT 12.8 H INR 1.3 APTT 59.7 H Fibrinogen Puncture Site Patient Temperature HCO3 Base Excess O2 Saturation ABG pH ABG pCO2 ABG pO2 ABG HCO3 ABG O2 Content ABG Base Excess ABG Carboxyhemoglobin ABG Methemoglobin Cap Carboxyhemoglobin Hemoglobin O2 Delivery Device Vent Setting Inspired O2 Critical Value Sodium Potassium Chloride Carbon Dioxide Anion Gap BUN Creatinine Estimated GFR POC Glucose Random Glucose Serum Osmolality Lactic Acid 25.2 H* Calcium Prot Corrected Calcium Phosphorus Magnesium Iron TIBC % Saturation Ferritin Total Bilirubin AST ALT Alkaline Phosphatase Ammonia 1392 H Total Creatine Kinase CK-MB (CK-2) CK-MB (CK-2) % Troponin I Total Protein Albumin TSH 3rd Generation Urine Color Urine Turbidity Urine pH Ur Specific [place] Urine Protein Urine Glucose (UA) Urine Ketones Urine Occult Blood Urine Nitrite Urine Bilirubin Urine Urobilinogen Ur Leukocyte Esterase Urine RBC Urine WBC Amorphous Sediment Urine Bacteria Hyaline Casts Urine Mucus Micro UA Comment Nasal Screen MRSA (PCR) Salicylates Urine Opiates Screen Acetaminophen Ur Barbiturates Screen Valproic Acid Ur Amphetamines Screen U Benzodiazepines Scrn Urine Cocaine Screen U Cannabinoids Screen Ethyl Alcohol Hepatitis A IgM Ab Hep Bs Antigen Hep B Core IgM Ab Hep C IgG Ab 02/08/18 02/08/18 02/08/18 08:10 08:10 10:32 WBC 12.0 H RBC 4.12 L Hgb 12.1 L Hct 41.1 MCV 99.6 MCH 29.4 MCHC 29.6 L RDW 16.6 Plt Count 283 MPV 9.1 Prelim Diff (Auto) Neut % (Auto) 46.3 Lymph % (Auto) 47.9 H Casey % (Auto) 4.8 Eos % (Auto) 0.2 Baso % (Auto) 0.8 Neut # (Auto) 5.6 Lymph # (Auto) 5.7 H Casey # (Auto) 0.6 Eos # (Auto) 0.0 Baso # (Auto) 0.1 CBC Comment AUTO DIFF WBC Differential Total Counted 100 Neutrophils % (Manual) 47 Seg Neuts % (Manual) Band Neutrophils % 3 Band Neuts % (Manual) Lymphocytes % 45 H Lymphocytes % (Manual) Monocytes % 5 Monocytes % (Manual) Metamyelocytes % (Man) Neutrophils # (Manual) 6.0 Abs Neuts (Manual) Nucleated RBCs/100 WBC Differential Comment FINAL DIFF MANUAL Toxic Granulation Platelet Estimate NORMAL Platelet Morphology Plt Morphology Comment NORMAL Acanthocytes (Spur) RBC Morph Comment PT INR APTT Fibrinogen Puncture Site LT FEMORAL Patient Temperature 98.6 HCO3 21 L Base Excess -3.2 L O2 Saturation 97 ABG pH 7.36 L ABG pCO2 39 ABG pO2 282 H ABG HCO3 ABG O2 Content 18.6 ABG Base Excess ABG Carboxyhemoglobin 0.2 ABG Methemoglobin 1.6 Cap Carboxyhemoglobin Hemoglobin 13.1 O2 Delivery Device VENTILATOR Vent Setting 500/10/+5/1.0 Inspired O2 100 Critical Value Sodium Potassium Chloride Carbon Dioxide Anion Gap BUN Creatinine Estimated GFR POC Glucose Random Glucose Serum Osmolality Lactic Acid Calcium Prot Corrected Calcium Phosphorus Magnesium Iron TIBC % Saturation Ferritin Total Bilirubin AST ALT Alkaline Phosphatase Ammonia Total Creatine Kinase CK-MB (CK-2) CK-MB (CK-2) % Troponin I Total Protein Albumin TSH 3rd Generation Urine Color Crystal Urine Turbidity CLOUDY H Urine pH 5.0 Ur Specific [place] 1.027 Urine Protein 100 H Urine Glucose (UA) NEG Urine Ketones TRACE H Urine Occult Blood SMALL H Urine Nitrite NEG Urine Bilirubin NEG Urine Urobilinogen 2.0 H Ur Leukocyte Esterase NEG Urine RBC 15 H Urine WBC 12 H Amorphous Sediment RARE Urine Bacteria RARE H Hyaline Casts 3 Urine Mucus FEW H Micro UA Comment CATH-CULTURE IND Nasal Screen MRSA (PCR) Salicylates Urine Opiates Screen Acetaminophen Ur Barbiturates Screen Valproic Acid Ur Amphetamines Screen U Benzodiazepines Scrn Urine Cocaine Screen U Cannabinoids Screen Ethyl Alcohol Hepatitis A IgM Ab Hep Bs Antigen Hep B Core IgM Ab Hep C IgG Ab 02/08/18 02/08/18 02/08/18 11:17 11:17 12:22 WBC RBC Hgb Hct MCV MCH MCHC RDW Plt Count MPV Prelim Diff (Auto) Neut % (Auto) Lymph % (Auto) Casey % (Auto) Eos % (Auto) Baso % (Auto) Neut # (Auto) Lymph # (Auto) Casey # (Auto) Eos # (Auto) Baso # (Auto) CBC Comment WBC Differential Total Counted Neutrophils % (Manual) Seg Neuts % (Manual) Band Neutrophils % Band Neuts % (Manual) Lymphocytes % Lymphocytes % (Manual) Monocytes % Monocytes % (Manual) Metamyelocytes % (Man) Neutrophils # (Manual) Abs Neuts (Manual) Nucleated RBCs/100 WBC Differential Comment Toxic Granulation Platelet Estimate Platelet Morphology Plt Morphology Comment Acanthocytes (Spur) RBC Morph Comment PT INR APTT Fibrinogen Puncture Site Patient Temperature HCO3 Base Excess O2 Saturation ABG pH ABG pCO2 ABG pO2 ABG HCO3 ABG O2 Content ABG Base Excess ABG Carboxyhemoglobin ABG Methemoglobin Cap Carboxyhemoglobin Hemoglobin O2 Delivery Device Vent Setting Inspired O2 Critical Value Sodium 143 Potassium 3.2 L D Chloride 107 Carbon Dioxide 23.3 D Anion Gap 13 BUN 13 Creatinine 1.60 H Estimated GFR 37 L POC Glucose Random Glucose 26 L* D Serum Osmolality Lactic Acid 3.0 H Calcium 6.4 L* D Prot Corrected Calcium 6.5 L* Phosphorus Magnesium Iron TIBC % Saturation Ferritin Total Bilirubin AST ALT Alkaline Phosphatase Ammonia Total Creatine Kinase CK-MB (CK-2) CK-MB (CK-2) % Troponin I Total Protein 7.0 Albumin TSH 3rd Generation Urine Color Urine Turbidity Urine pH Ur Specific [place] Urine Protein Urine Glucose (UA) Urine Ketones Urine Occult Blood Urine Nitrite Urine Bilirubin Urine Urobilinogen Ur Leukocyte Esterase Urine RBC Urine WBC Amorphous Sediment Urine Bacteria Hyaline Casts Urine Mucus Micro UA Comment Nasal Screen MRSA (PCR) MRSA NOT DETECTED Salicylates Urine Opiates Screen Acetaminophen Ur Barbiturates Screen Valproic Acid Ur Amphetamines Screen U Benzodiazepines Scrn Urine Cocaine Screen U Cannabinoids Screen Ethyl Alcohol Hepatitis A IgM Ab Hep Bs Antigen Hep B Core IgM Ab Hep C IgG Ab 02/08/18 02/08/18 02/08/18 12:31 12:31 12:31 WBC RBC Hgb Hct MCV MCH MCHC RDW Plt Count MPV Prelim Diff (Auto) Neut % (Auto) Lymph % (Auto) Casey % (Auto) Eos % (Auto) Baso % (Auto) Neut # (Auto) Lymph # (Auto) Casey # (Auto) Eos # (Auto) Baso # (Auto) CBC Comment WBC Differential Total Counted Neutrophils % (Manual) Seg Neuts % (Manual) Band Neutrophils % Band Neuts % (Manual) Lymphocytes % Lymphocytes % (Manual) Monocytes % Monocytes % (Manual) Metamyelocytes % (Man) Neutrophils # (Manual) Abs Neuts (Manual) Nucleated RBCs/100 WBC Differential Comment Toxic Granulation Platelet Estimate Platelet Morphology Plt Morphology Comment Acanthocytes (Spur) RBC Morph Comment PT INR APTT Fibrinogen Puncture Site Patient Temperature HCO3 Base Excess O2 Saturation ABG pH ABG pCO2 ABG pO2 ABG HCO3 ABG O2 Content ABG Base Excess ABG Carboxyhemoglobin ABG Methemoglobin Cap Carboxyhemoglobin Hemoglobin O2 Delivery Device Vent Setting Inspired O2 Critical Value Sodium Potassium Chloride Carbon Dioxide Anion Gap BUN Creatinine Estimated GFR POC Glucose Random Glucose Serum Osmolality Lactic Acid Calcium Prot Corrected Calcium Phosphorus 4.2 Magnesium Iron TIBC % Saturation Ferritin Total Bilirubin AST ALT Alkaline Phosphatase Ammonia 50 H Total Creatine Kinase CK-MB (CK-2) CK-MB (CK-2) % Troponin I Total Protein Albumin TSH 3rd Generation Urine Color Urine Turbidity Urine pH Ur Specific [place] Urine Protein Urine Glucose (UA) Urine Ketones Urine Occult Blood Urine Nitrite Urine Bilirubin Urine Urobilinogen Ur Leukocyte Esterase Urine RBC Urine WBC Amorphous Sediment Urine Bacteria Hyaline Casts Urine Mucus Micro UA Comment Nasal Screen MRSA (PCR) Salicylates Urine Opiates Screen Acetaminophen Ur Barbiturates Screen Valproic Acid 3 L Ur Amphetamines Screen U Benzodiazepines Scrn Urine Cocaine Screen U Cannabinoids Screen Ethyl Alcohol Hepatitis A IgM Ab Hep Bs Antigen Hep B Core IgM Ab Hep C IgG Ab 02/08/18 02/08/18 02/08/18 14:11 16:22 16:22 WBC RBC Hgb Hct MCV MCH MCHC RDW Plt Count MPV Prelim Diff (Auto) Neut % (Auto) Lymph % (Auto) Casey % (Auto) Eos % (Auto) Baso % (Auto) Neut # (Auto) Lymph # (Auto) Casey # (Auto) Eos # (Auto) Baso # (Auto) CBC Comment WBC Differential Total Counted Neutrophils % (Manual) Seg Neuts % (Manual) Band Neutrophils % Band Neuts % (Manual) Lymphocytes % Lymphocytes % (Manual) Monocytes % Monocytes % (Manual) Metamyelocytes % (Man) Neutrophils # (Manual) Abs Neuts (Manual) Nucleated RBCs/100 WBC Differential Comment Toxic Granulation Platelet Estimate Platelet Morphology Plt Morphology Comment Acanthocytes (Spur) RBC Morph Comment PT INR APTT Fibrinogen Puncture Site Patient Temperature HCO3 Base Excess O2 Saturation ABG pH ABG pCO2 ABG pO2 ABG HCO3 ABG O2 Content ABG Base Excess ABG Carboxyhemoglobin ABG Methemoglobin Cap Carboxyhemoglobin Hemoglobin O2 Delivery Device Vent Setting Inspired O2 Critical Value Sodium Potassium Chloride Carbon Dioxide Anion Gap BUN Creatinine Estimated GFR POC Glucose Random Glucose Serum Osmolality 302 H Lactic Acid 1.2 Calcium Prot Corrected Calcium Phosphorus Magnesium Iron TIBC % Saturation Ferritin Total Bilirubin AST ALT Alkaline Phosphatase Ammonia 53 H Total Creatine Kinase CK-MB (CK-2) CK-MB (CK-2) % Troponin I Total Protein Albumin TSH 3rd Generation Urine Color Urine Turbidity Urine pH Ur Specific [place] Urine Protein Urine Glucose (UA) Urine Ketones Urine Occult Blood Urine Nitrite Urine Bilirubin Urine Urobilinogen Ur Leukocyte Esterase Urine RBC Urine WBC Amorphous Sediment Urine Bacteria Hyaline Casts Urine Mucus Micro UA Comment Nasal Screen MRSA (PCR) Salicylates Urine Opiates Screen Acetaminophen Ur Barbiturates Screen Valproic Acid Ur Amphetamines Screen U Benzodiazepines Scrn Urine Cocaine Screen U Cannabinoids Screen Ethyl Alcohol Hepatitis A IgM Ab Hep Bs Antigen Hep B Core IgM Ab Hep C IgG Ab 02/08/18 02/08/18 02/09/18 18:00 23:07 03:56 WBC RBC Hgb Hct MCV MCH MCHC RDW Plt Count MPV Prelim Diff (Auto) Neut % (Auto) Lymph % (Auto) Casey % (Auto) Eos % (Auto) Baso % (Auto) Neut # (Auto) Lymph # (Auto) Casey # (Auto) Eos # (Auto) Baso # (Auto) CBC Comment WBC Differential Total Counted Neutrophils % (Manual) Seg Neuts % (Manual) Band Neutrophils % Band Neuts % (Manual) Lymphocytes % Lymphocytes % (Manual) Monocytes % Monocytes % (Manual) Metamyelocytes % (Man) Neutrophils # (Manual) Abs Neuts (Manual) Nucleated RBCs/100 WBC Differential Comment Toxic Granulation Platelet Estimate Platelet Morphology Plt Morphology Comment Acanthocytes (Spur) RBC Morph Comment PT INR APTT Fibrinogen Puncture Site Patient Temperature HCO3 Base Excess O2 Saturation ABG pH ABG pCO2 ABG pO2 ABG HCO3 ABG O2 Content ABG Base Excess ABG Carboxyhemoglobin ABG Methemoglobin Cap Carboxyhemoglobin Hemoglobin O2 Delivery Device Vent Setting Inspired O2 Critical Value Sodium 142 141 Potassium 3.9 4.6 Chloride 107 109 H Carbon Dioxide 24.2 22.7 Anion Gap 11 9 BUN 19 H 26 H Creatinine 1.89 H 2.60 H Estimated GFR 31 L 21 L POC Glucose Random Glucose 123 H 129 H Serum Osmolality Lactic Acid 0.9 Calcium 6.6 L* 6.3 L* Prot Corrected Calcium 6.9 L* 6.7 L* Phosphorus Magnesium Iron TIBC % Saturation Ferritin Total Bilirubin 1.1 H AST 2631 H ALT 583 H Alkaline Phosphatase 97 Ammonia Total Creatine Kinase 403454 H CK-MB (CK-2) 1505.3 H CK-MB (CK-2) % 1.1 Troponin I Total Protein 6.6 6.3 L Albumin 3.0 L TSH 3rd Generation Urine Color Urine Turbidity Urine pH Ur Specific [place] Urine Protein Urine Glucose (UA) Urine Ketones Urine Occult Blood Urine Nitrite Urine Bilirubin Urine Urobilinogen Ur Leukocyte Esterase Urine RBC Urine WBC Amorphous Sediment Urine Bacteria Hyaline Casts Urine Mucus Micro UA Comment Nasal Screen MRSA (PCR) Salicylates Urine Opiates Screen Acetaminophen Ur Barbiturates Screen Valproic Acid Ur Amphetamines Screen U Benzodiazepines Scrn Urine Cocaine Screen U Cannabinoids Screen Ethyl Alcohol Hepatitis A IgM Ab Hep Bs Antigen Hep B Core IgM Ab Hep C IgG Ab 02/09/18 02/09/18 02/09/18 03:56 03:56 03:56 WBC 21.4 H D RBC 4.85 Hgb 14.4 D Hct 44.0 MCV 90.7 D MCH 29.7 MCHC 32.7 RDW 16.1 Plt Count 119 L D MPV 8.1 Prelim Diff (Auto) Neut % (Auto) 95.5 H Lymph % (Auto) 2.6 L Casey % (Auto) 1.8 Eos % (Auto) 0.0 Baso % (Auto) 0.1 Neut # (Auto) 20.4 H Lymph # (Auto) 0.6 L Casey # (Auto) 0.4 Eos # (Auto) 0.0 Baso # (Auto) 0.0 CBC Comment DIFF FINAL WBC Differential Total Counted Neutrophils % (Manual) Seg Neuts % (Manual) Band Neutrophils % Band Neuts % (Manual) Lymphocytes % Lymphocytes % (Manual) Monocytes % Monocytes % (Manual) Metamyelocytes % (Man) Neutrophils # (Manual) Abs Neuts (Manual) Nucleated RBCs/100 WBC Differential Comment Toxic Granulation Platelet Estimate Platelet Morphology Plt Morphology Comment Acanthocytes (Spur) RBC Morph Comment PT INR APTT Fibrinogen Puncture Site Patient Temperature HCO3 Base Excess O2 Saturation ABG pH ABG pCO2 ABG pO2 ABG HCO3 ABG O2 Content ABG Base Excess ABG Carboxyhemoglobin ABG Methemoglobin Cap Carboxyhemoglobin Hemoglobin O2 Delivery Device Vent Setting Inspired O2 Critical Value Sodium Potassium Chloride Carbon Dioxide Anion Gap BUN Creatinine Estimated GFR POC Glucose Random Glucose Serum Osmolality Lactic Acid 1.0 Calcium Prot Corrected Calcium Phosphorus Magnesium Iron TIBC % Saturation Ferritin Total Bilirubin AST ALT Alkaline Phosphatase Ammonia 100 H Total Creatine Kinase CK-MB (CK-2) CK-MB (CK-2) % Troponin I Total Protein Albumin TSH 3rd Generation Urine Color Urine Turbidity Urine pH Ur Specific [place] Urine Protein Urine Glucose (UA) Urine Ketones Urine Occult Blood Urine Nitrite Urine Bilirubin Urine Urobilinogen Ur Leukocyte Esterase Urine RBC Urine WBC Amorphous Sediment Urine Bacteria Hyaline Casts Urine Mucus Micro UA Comment Nasal Screen MRSA (PCR) Salicylates Urine Opiates Screen Acetaminophen Ur Barbiturates Screen Valproic Acid Ur Amphetamines Screen U Benzodiazepines Scrn Urine Cocaine Screen U Cannabinoids Screen Ethyl Alcohol Hepatitis A IgM Ab Hep Bs Antigen Hep B Core IgM Ab Hep C IgG Ab 02/09/18 02/09/18 02/09/18 09:20 09:20 09:20 WBC RBC Hgb Hct MCV MCH MCHC RDW Plt Count MPV Prelim Diff (Auto) Neut % (Auto) Lymph % (Auto) Casey % (Auto) Eos % (Auto) Baso % (Auto) Neut # (Auto) Lymph # (Auto) Casey # (Auto) Eos # (Auto) Baso # (Auto) CBC Comment WBC Differential Total Counted Neutrophils % (Manual) Seg Neuts % (Manual) Band Neutrophils % Band Neuts % (Manual) Lymphocytes % Lymphocytes % (Manual) Monocytes % Monocytes % (Manual) Metamyelocytes % (Man) Neutrophils # (Manual) Abs Neuts (Manual) Nucleated RBCs/100 WBC Differential Comment Toxic Granulation Platelet Estimate Platelet Morphology Plt Morphology Comment Acanthocytes (Spur) RBC Morph Comment PT 18.1 H D INR 1.8 APTT Fibrinogen 120 L Puncture Site Patient Temperature HCO3 Base Excess O2 Saturation ABG pH ABG pCO2 ABG pO2 ABG HCO3 ABG O2 Content ABG Base Excess ABG Carboxyhemoglobin ABG Methemoglobin Cap Carboxyhemoglobin Hemoglobin O2 Delivery Device Vent Setting Inspired O2 Critical Value Sodium 143 Potassium 4.7 Chloride 111 H Carbon Dioxide 22.1 Anion Gap 10 BUN 28 H Creatinine 3.05 H Estimated GFR 18 L POC Glucose Random Glucose 127 H Serum Osmolality Lactic Acid Calcium 7.5 L D Prot Corrected Calcium Phosphorus Magnesium 4.0 H Iron TIBC % Saturation Ferritin Total Bilirubin AST ALT Alkaline Phosphatase Ammonia Total Creatine Kinase CK-MB (CK-2) CK-MB (CK-2) % Troponin I Total Protein Albumin TSH 3rd Generation Urine Color Urine Turbidity Urine pH Ur Specific [place] Urine Protein Urine Glucose (UA) Urine Ketones Urine Occult Blood Urine Nitrite Urine Bilirubin Urine Urobilinogen Ur Leukocyte Esterase Urine RBC Urine WBC Amorphous Sediment Urine Bacteria Hyaline Casts Urine Mucus Micro UA Comment Nasal Screen MRSA (PCR) Salicylates Urine Opiates Screen Acetaminophen Ur Barbiturates Screen Valproic Acid Ur Amphetamines Screen U Benzodiazepines Scrn Urine Cocaine Screen U Cannabinoids Screen Ethyl Alcohol Hepatitis A IgM Ab NONREACTIVE Hep Bs Antigen NONREACTIVE Hep B Core IgM Ab NONREACTIVE Hep C IgG Ab REACTIVE H 02/09/18 02/10/18 02/10/18 22:10 04:00 04:00 WBC RBC Hgb Hct MCV MCH MCHC RDW Plt Count MPV Prelim Diff (Auto) Neut % (Auto) Lymph % (Auto) Casey % (Auto) Eos % (Auto) Baso % (Auto) Neut # (Auto) Lymph # (Auto) Casey # (Auto) Eos # (Auto) Baso # (Auto) CBC Comment WBC Differential Total Counted Neutrophils % (Manual) Seg Neuts % (Manual) Band Neutrophils % Band Neuts % (Manual) Lymphocytes % Lymphocytes % (Manual) Monocytes % Monocytes % (Manual) Metamyelocytes % (Man) Neutrophils # (Manual) Abs Neuts (Manual) Nucleated RBCs/100 WBC Differential Comment Toxic Granulation Platelet Estimate Platelet Morphology Plt Morphology Comment Acanthocytes (Spur) RBC Morph Comment PT 18.2 H INR 1.8 APTT Fibrinogen Puncture Site Patient Temperature HCO3 Base Excess O2 Saturation ABG pH ABG pCO2 ABG pO2 ABG HCO3 ABG O2 Content ABG Base Excess ABG Carboxyhemoglobin ABG Methemoglobin Cap Carboxyhemoglobin Hemoglobin O2 Delivery Device Vent Setting Inspired O2 Critical Value Sodium 142 143 Potassium 5.4 H 5.3 H Chloride 108 H 107 Carbon Dioxide 23.5 22.0 Anion Gap 11 14 BUN 34 H 38 H Creatinine 3.97 H 4.62 H Estimated GFR 13 L 11 L POC Glucose Random Glucose 90 94 Serum Osmolality Lactic Acid Calcium 5.6 L* D 6.2 L* Prot Corrected Calcium 6.1 L* D 7.1 L* Phosphorus Magnesium 3.3 H D 3.0 H Iron 157 TIBC 167 L % Saturation 94.2 H Ferritin 2162 H Total Bilirubin 1.5 H AST 4303 H ALT 1637 H Alkaline Phosphatase 110 Ammonia Total Creatine Kinase 096912 H CK-MB (CK-2) 1446.6 H CK-MB (CK-2) % 0.8 Troponin I Total Protein 5.8 L 5.2 L D Albumin 2.2 L D TSH 3rd Generation Urine Color Urine Turbidity Urine pH Ur Specific [place] Urine Protein Urine Glucose (UA) Urine Ketones Urine Occult Blood Urine Nitrite Urine Bilirubin Urine Urobilinogen Ur Leukocyte Esterase Urine RBC Urine WBC Amorphous Sediment Urine Bacteria Hyaline Casts Urine Mucus Micro UA Comment Nasal Screen MRSA (PCR) Salicylates Urine Opiates Screen Acetaminophen Ur Barbiturates Screen Valproic Acid Ur Amphetamines Screen U Benzodiazepines Scrn Urine Cocaine Screen U Cannabinoids Screen Ethyl Alcohol Hepatitis A IgM Ab Hep Bs Antigen Hep B Core IgM Ab Hep C IgG Ab 02/10/18 02/10/18 02/10/18 06:00 06:15 07:52 WBC 18.4 H RBC 4.37 L Hgb 13.0 Hct 40.0 MCV 91.5 MCH 29.7 MCHC 32.4 RDW 16.2 Plt Count 99 L MPV 9.6 Prelim Diff (Auto) Neut % (Auto) 93.0 H Lymph % (Auto) 4.3 L Casey % (Auto) 2.6 Eos % (Auto) 0.0 Baso % (Auto) 0.1 Neut # (Auto) 17.1 H Lymph # (Auto) 0.8 L Casey # (Auto) 0.5 Eos # (Auto) 0.0 Baso # (Auto) 0.0 CBC Comment AUTO DIFF WBC Differential Total Counted 100 Neutrophils % (Manual) 65 Seg Neuts % (Manual) Band Neutrophils % 31 H Band Neuts % (Manual) Lymphocytes % 1 L Lymphocytes % (Manual) Monocytes % 3 Monocytes % (Manual) Metamyelocytes % (Man) Neutrophils # (Manual) 17.7 H Abs Neuts (Manual) Nucleated RBCs/100 WBC Differential Comment FINAL DIFF MANUAL Toxic Granulation Platelet Estimate LOW L Platelet Morphology Plt Morphology Comment NORMAL Acanthocytes (Spur) RBC Morph Comment NORMAL PT INR APTT Fibrinogen Puncture Site RT BRACHIAL Patient Temperature 98.6 HCO3 20 L Base Excess -9.3 L O2 Saturation 94 ABG pH 7.06 L* ABG pCO2 74 H* ABG pO2 103 ABG HCO3 ABG O2 Content 17.7 ABG Base Excess ABG Carboxyhemoglobin 0.8 ABG Methemoglobin 1.9 Cap Carboxyhemoglobin Hemoglobin 13.3 O2 Delivery Device VENTILATOR Vent Setting PRVC/AC Inspired O2 35 Critical Value Sodium Potassium Chloride Carbon Dioxide Anion Gap BUN Creatinine Estimated GFR POC Glucose Random Glucose Serum Osmolality Lactic Acid Calcium Prot Corrected Calcium Phosphorus Magnesium Iron TIBC % Saturation Ferritin Total Bilirubin AST ALT Alkaline Phosphatase Ammonia 106 H Total Creatine Kinase CK-MB (CK-2) CK-MB (CK-2) % Troponin I Total Protein Albumin TSH 3rd Generation Urine Color Urine Turbidity Urine pH Ur Specific [place] Urine Protein Urine Glucose (UA) Urine Ketones Urine Occult Blood Urine Nitrite Urine Bilirubin Urine Urobilinogen Ur Leukocyte Esterase Urine RBC Urine WBC Amorphous Sediment Urine Bacteria Hyaline Casts Urine Mucus Micro UA Comment Nasal Screen MRSA (PCR) Salicylates Urine Opiates Screen Acetaminophen Ur Barbiturates Screen Valproic Acid Ur Amphetamines Screen U Benzodiazepines Scrn Urine Cocaine Screen U Cannabinoids Screen Ethyl Alcohol Hepatitis A IgM Ab Hep Bs Antigen Hep B Core IgM Ab Hep C IgG Ab 02/10/18 02/11/18 02/11/18 11:47 05:15 05:15 WBC RBC Hgb Hct MCV MCH MCHC RDW Plt Count MPV Prelim Diff (Auto) Neut % (Auto) Lymph % (Auto) Casey % (Auto) Eos % (Auto) Baso % (Auto) Neut # (Auto) Lymph # (Auto) Casey # (Auto) Eos # (Auto) Baso # (Auto) CBC Comment WBC Differential Total Counted Neutrophils % (Manual) Seg Neuts % (Manual) Band Neutrophils % Band Neuts % (Manual) Lymphocytes % Lymphocytes % (Manual) Monocytes % Monocytes % (Manual) Metamyelocytes % (Man) Neutrophils # (Manual) Abs Neuts (Manual) Nucleated RBCs/100 WBC Differential Comment Toxic Granulation Platelet Estimate Platelet Morphology Plt Morphology Comment Acanthocytes (Spur) RBC Morph Comment PT 17.4 H INR 1.7 APTT 41.9 H Fibrinogen 464 H Puncture Site ART LINE Patient Temperature 98.6 HCO3 16 L* Base Excess -10.7 L O2 Saturation 95 ABG pH 7.16 L* ABG pCO2 48 H ABG pO2 117 ABG HCO3 ABG O2 Content 17.0 ABG Base Excess ABG Carboxyhemoglobin 0.8 ABG Methemoglobin 1.9 Cap Carboxyhemoglobin Hemoglobin 12.6 O2 Delivery Device VENTILATOR Vent Setting Inspired O2 35 Critical Value Sodium Potassium Chloride Carbon Dioxide Anion Gap BUN Creatinine Estimated GFR POC Glucose Random Glucose Serum Osmolality Lactic Acid Calcium Prot Corrected Calcium Phosphorus Magnesium Iron TIBC % Saturation Ferritin Total Bilirubin AST ALT Alkaline Phosphatase Ammonia 38 H Total Creatine Kinase CK-MB (CK-2) CK-MB (CK-2) % Troponin I Total Protein Albumin TSH 3rd Generation Urine Color Urine Turbidity Urine pH Ur Specific [place] Urine Protein Urine Glucose (UA) Urine Ketones Urine Occult Blood Urine Nitrite Urine Bilirubin Urine Urobilinogen Ur Leukocyte Esterase Urine RBC Urine WBC Amorphous Sediment Urine Bacteria Hyaline Casts Urine Mucus Micro UA Comment Nasal Screen MRSA (PCR) Salicylates Urine Opiates Screen Acetaminophen Ur Barbiturates Screen Valproic Acid Ur Amphetamines Screen U Benzodiazepines Scrn Urine Cocaine Screen U Cannabinoids Screen Ethyl Alcohol Hepatitis A IgM Ab Hep Bs Antigen Hep B Core IgM Ab Hep C IgG Ab 02/11/18 02/11/18 02/11/18 05:15 05:15 07:07 WBC 28.0 H RBC 4.20 L Hgb 12.5 L Hct 37.7 L MCV 89.9 MCH 29.8 MCHC 33.2 RDW 16.0 Plt Count 68 L MPV 10.0 Prelim Diff (Auto) Slide review pending Neut % (Auto) 94.3 H Lymph % (Auto) 3.2 L Casey % (Auto) 2.3 Eos % (Auto) 0.0 Baso % (Auto) 0.2 Neut # (Auto) 26.4 H Lymph # (Auto) 0.9 L Casey # (Auto) 0.7 Eos # (Auto) 0.0 Baso # (Auto) 0.0 CBC Comment WBC Differential Manual diff final Total Counted Neutrophils % (Manual) Seg Neuts % (Manual) 49 Band Neutrophils % Band Neuts % (Manual) 30 H Lymphocytes % Lymphocytes % (Manual) 6 L Monocytes % Monocytes % (Manual) 5 Metamyelocytes % (Man) 10 H Neutrophils # (Manual) Abs Neuts (Manual) 24.9 H Nucleated RBCs/100 WBC 1 H Differential Comment . Toxic Granulation 1+ H Platelet Estimate Low L Platelet Morphology Normal Plt Morphology Comment Acanthocytes (Spur) 1+ H RBC Morph Comment PT INR APTT Fibrinogen Puncture Site Art line Patient Temperature 98.6 HCO3 Base Excess O2 Saturation 93 ABG pH 7.16 L* ABG pCO2 34 L ABG pO2 98 ABG HCO3 12 L* ABG O2 Content 16.2 ABG Base Excess -15.4 L ABG Carboxyhemoglobin ABG Methemoglobin 1.7 Cap Carboxyhemoglobin 0.4 Hemoglobin 12.3 O2 Delivery Device Ventilator Vent Setting Prvc/ac Inspired O2 35 Critical Value Yes Sodium 140 Potassium 5.6 H Chloride 104 Carbon Dioxide 12.5 L Anion Gap 24 H BUN 46 H Creatinine 6.04 H Estimated GFR 8 L POC Glucose Random Glucose 98 Serum Osmolality Lactic Acid Calcium 5.1 L* Prot Corrected Calcium 6.0 L* Phosphorus 8.9 H Magnesium 1.8 Iron TIBC % Saturation Ferritin Total Bilirubin 1.7 H AST 3047 H ALT 1317 H Alkaline Phosphatase 109 Ammonia Total Creatine Kinase 185253 H CK-MB (CK-2) 808.8 H CK-MB (CK-2) % 0.5 Troponin I Total Protein 4.8 L Albumin 1.7 L TSH 3rd Generation Urine Color Urine Turbidity Urine pH Ur Specific [place] Urine Protein Urine Glucose (UA) Urine Ketones Urine Occult Blood Urine Nitrite Urine Bilirubin Urine Urobilinogen Ur Leukocyte Esterase Urine RBC Urine WBC Amorphous Sediment Urine Bacteria Hyaline Casts Urine Mucus Micro UA Comment Nasal Screen MRSA (PCR) Salicylates Urine Opiates Screen Acetaminophen Ur Barbiturates Screen Valproic Acid Ur Amphetamines Screen U Benzodiazepines Scrn Urine Cocaine Screen U Cannabinoids Screen Ethyl Alcohol Hepatitis A IgM Ab Hep Bs Antigen Hep B Core IgM Ab Hep C IgG Ab 02/11/18 02/11/18 18:17 18:56 WBC RBC Hgb Hct MCV MCH MCHC RDW Plt Count MPV Prelim Diff (Auto) Neut % (Auto) Lymph % (Auto) Casey % (Auto) Eos % (Auto) Baso % (Auto) Neut # (Auto) Lymph # (Auto) Casey # (Auto) Eos # (Auto) Baso # (Auto) CBC Comment WBC Differential Total Counted Neutrophils % (Manual) Seg Neuts % (Manual) Band Neutrophils % Band Neuts % (Manual) Lymphocytes % Lymphocytes % (Manual) Monocytes % Monocytes % (Manual) Metamyelocytes % (Man) Neutrophils # (Manual) Abs Neuts (Manual) Nucleated RBCs/100 WBC Differential Comment Toxic Granulation Platelet Estimate Platelet Morphology Plt Morphology Comment Acanthocytes (Spur) RBC Morph Comment PT INR APTT Fibrinogen Puncture Site Art line Patient Temperature 98.6 HCO3 Base Excess O2 Saturation 97 ABG pH 7.17 L* ABG pCO2 40 ABG pO2 238 H ABG HCO3 14 L* ABG O2 Content 16.4 ABG Base Excess -13.1 L ABG Carboxyhemoglobin ABG Methemoglobin 1.6 Cap Carboxyhemoglobin 0.3 Hemoglobin 11.7 L O2 Delivery Device Ventilator Vent Setting Prvc/ac Inspired O2 100 Critical Value Yes Sodium Potassium Chloride Carbon Dioxide Anion Gap BUN Creatinine Estimated GFR POC Glucose 75 Random Glucose Serum Osmolality Lactic Acid Calcium Prot Corrected Calcium Phosphorus Magnesium Iron TIBC % Saturation Ferritin Total Bilirubin AST ALT Alkaline Phosphatase Ammonia Total Creatine Kinase CK-MB (CK-2) CK-MB (CK-2) % Troponin I Total Protein Albumin TSH 3rd Generation Urine Color Urine Turbidity Urine pH Ur Specific [place] Urine Protein Urine Glucose (UA) Urine Ketones Urine Occult Blood Urine Nitrite Urine Bilirubin Urine Urobilinogen Ur Leukocyte Esterase Urine RBC Urine WBC Amorphous Sediment Urine Bacteria Hyaline Casts Urine Mucus Micro UA Comment Nasal Screen MRSA (PCR) Salicylates Urine Opiates Screen Acetaminophen Ur Barbiturates Screen Valproic Acid Ur Amphetamines Screen U Benzodiazepines Scrn Urine Cocaine Screen U Cannabinoids Screen Ethyl Alcohol Hepatitis A IgM Ab Hep Bs Antigen Hep B Core IgM Ab Hep C IgG Ab <Kaden Bunn - Last Filed: 02/11/18 20:52> Assessment and Plan (1) Shock liver Status: Acute Code(s): K72.00 - Acute and subacute hepatic failure without coma (2) Acute liver failure with hepatic coma Status: Acute Code(s): K72.01 - Acute and subacute hepatic failure with coma - Plan 37-year-old patient is in the intensive care setting with multisystem organ failure, intubated, tachycardic, and cyanosis noted up to knees bilateral Shock liver with acute liver failure, current abdomen is very firm to touch no obvious bowel sounds heard noted increased ammonia level on admission Transaminitis, labs continue to be critical. Patient continues to need vasopressors Labs show current hemoglobin 12.5 and WBC count 28, leukocytosis Elevated ammonia level patient continues to be on lactulose Note positive for substance abuse on toxicology positive for amphetamines Hepatitis C antibody positive, history unknown but probably related to drug abuse Currently no family present, patient is critically ill and is in multisystem failure. If any family becomes present consider palliative care. Plan Diet consider tube feed but probably unable to tolerate at this time, unstable Continue to monitor labs with special attention to bilirubin and liver labs and ammonia level, and hemoglobin Xifaxan PPI Supportive care Patient was seen per myself and Dr. bunn, this note was written on his behalf <Rena Martin - Last Filed: 02/11/18 18:26> (1) Shock liver Status: Acute Code(s): K72.00 - Acute and subacute hepatic failure without coma (2) Acute liver failure with hepatic coma Status: Acute Code(s): K72.01 - Acute and subacute hepatic failure with coma - Plan Agree with above - Attending Attestation The exam, history, and the medical decision-making described in the above note were completed with the assistance of the mid-level provider. I reviewed and agree with the findings presented. I attest that I had a [id number] encounter with the patient on the same day, and personally performed and documented my assessment and findings in the medical record. <Kaden Bunn - Last Filed: 02/11/18 20:52>
[2018-02-12] MEDS: Piperacil/Tazo 3.375 GM Premix 50 ML IV.SIG SCH ×2 (02:18→10:20)
[2018-02-12] MEDS: Sodium Bicarbonate 8.4% Inj 100 MEQ in Sodium Chloride 0.45 % Inj 900 ML IV.CONT SCH ×2 (04:14→10:25)
[2018-02-12] MEDS: Norepinephrine Inj 16 MG in Sodium Chlor 0.9% Inj 234 ML IV.SIG PRN (05:35)
[2018-02-12] MEDS: Vasopressin Inj 40 UNIT in Sodium Chlor 0.9% Inj 98 ML IV.CONT SCH (05:37)
[2018-02-12 06:08] LABS: Hematocrit 29.2 % (39.0-51.0); Hemoglobin 9.7 gm/dL (13.0-17.0); Mean Corpuscular HGB Conc 33.3 % (32.0-36.0); Mean Corpuscular Hemoglobin 29.2 pg (27.0-34.0); Mean Corpuscular Volume 87.8 fL (80.0-100.0); Mean Platelet Volume 10.2 fL (7.0-11.0); Platelet Count 49 th/mm3 (150-450); Red Blood Count 3.33 mil/mm3 (4.50-5.90); Red Cell Distribution Width 16.5 % (11.6-17.2); White Blood Count 19.3 th/mm3 (4.0-11.0)
[2018-02-12 06:49] LABS: INR 1.5 Ratio; Prothrombin Time 15.3 sec (9.8-11.6)
[2018-02-12] MEDS: Phenylephrine Inj 160 MG in Sodium Chlor 0.9% Inj 484 ML IV.CONT PRN (07:34)
[2018-02-12 07:39] LABS: Lymphocytes 5 % (9-44); Monocytes 3 % (0-8); Myelocytes 1 % (0-0); Tallied Nucleated RBC 4 (0-0)
[2018-02-12 07:40] LABS: Acanthocytes Occ; Platelet Morphology Normal (Normal)
[2018-02-12 08:04] LABS: Alanine Aminotransferase 983 U/L (12-78); Alkaline Phosphatase 115 U/L (45-117); Anion Gap 23 meq/L (5-15); Blood Urea Nitrogen 54 mg/dL (7-18); Carbon Dioxide 16.6 meq/L (21.0-32.0); Chloride 97 meq/L (98-107); Glomerular Filtration Rate 8 mL/min (>89); Glucose,Random 66 mg/dL (74-106); Magnesium 1.7 mg/dL (1.5-2.5); Potassium 5.5 meq/L (3.5-5.1); Sodium 137 meq/L (136-145); Total Protein 4.5 g/dL (6.4-8.2)
[2018-02-12 08:07] LABS: Creatine Kinase 95479 U/L (39-308)
[2018-02-12 08:42] LABS: CKMB Percent 0.7 % (0.0-4.0); Creatine Kinase MB 715.9 ng/mL (0.5-3.6)
[2018-02-12 08:43] LABS: Aspartate Aminotransferase 4400 U/L (15-37); Phosphorus 9.3 mg/dL (2.5-4.9)
[2018-02-12] MEDS ORDERED: Sodium Polystyrene Sulfonate/Sorbitol Liq 15 GM/60 ML UDC PO ONE (08:52)
--- NOTE | 2018-02-12 08:54 | P.PNCC ---
Subjective Subjective Remarks/Hospital Course: Patient is a 37-year-old male with unknown past medical history who presented to [facility] ED post-cardiopulmonary arrest. Per ED records, the patient was running from police and he was shocked twice and tased. The patient collapsed to the ground and was found in asystole. EMS started an IO and patient was given epinephrine and 2 rounds of CPR with successful return of spontaneous circulation. He was intubated on the scene and received approximately 500 mL of normal saline en route. He was hypotensive initially and EMS noted dilated pupils. The patient had a bottle of Boyd used for killing weeds and evidently sprayed it at the police officers with potential self-contamination. His laboratory data is significant for severe lactic acidemia with lactic acid level of 25, metabolic acidosis with renal failure, creatinine 1.97. In addition, patient was hyperkalemic at 6.5 potassium. Other significant labs showed elevated ammonia level at 1392 and total CK 3284. His urine drug screen was positive for amphetamines. A CT scan of the brain was obtained, which was limited due to multiple artifacts; however, it showed no acute intracranial abnormalities. The patient also underwent CT angiogram of the chest, which showed no evidence of pulmonary embolism. Minimal ground glass opacities at the lung bases, likely reflecting atelectasis. Chest x-ray post-intubation showed ET tube above the roberth, otherwise no acute abnormalities. In the ED, patient was given approximately 2 L of crystalloids. In addition, he was treated for hyperkalemia with 10 units of IV insulin, D50, sodium bicarbonate, calcium gluconate and was placed on a bicarbonate drip. The patient was seen by Dr. Coronado from nephrology service. 02/09 Patient is intubated and sedated with Diprivan, Versed and Fentanyl drips in addition he is on neuromuscular blockade (Nimbex). Renal function is worse today with Cr: 2.69 from 1.89. 02/10: remains critically ill on vasopressors in shock. severe organ dysfunction persists, including shock liver, severe rhabdomyolysis, acidosis. re-warmed at 36 degrees currently and cisatricurium drip discontinued. 02/11: Remains orally intubated on mechanical ventilation on pressors. Off all sedation. Worsening metabolic acidosis and hyperkalemia. Hypotensive on phenylephrine, vasopressin. Started on Mucomyst GTT per poison control recommendation on 02/10. Nephrology to decide hemodialysis versus CRRT 02/12 Patient remains intubated and on multiple pressors ( levophed 30 mics, Neosyn 300mics, Vasopressin 0.04, Epi 10) on bicarb drip. Unresponsive. Objective Vital Signs / I&O: Vital Signs 02/11/18 08:45 02/11/18 09:00 02/11/18 10:30 Temperature Pulse Rate 128 H 126 H 120 H Respiratory Rate 0 L 0 L 0 L Blood Pressure 89/49 L 94/46 L 97/49 L Pulse Oximetry 98 98 98 02/11/18 10:45 02/11/18 11:00 02/11/18 11:13 Temperature Pulse Rate 120 H 120 H Respiratory Rate 0 L 0 L 24 Blood Pressure 100/49 L 99/53 L Pulse Oximetry 98 97 97 02/11/18 11:15 02/11/18 11:30 02/11/18 11:45 Temperature Pulse Rate 120 H 120 H 116 H Respiratory Rate 0 L 0 L 0 L Blood Pressure 102/51 L 103/50 L 94/45 L Pulse Oximetry 98 98 97 02/11/18 12:00 02/11/18 12:15 02/11/18 12:30 Temperature Pulse Rate 117 H 117 H 116 H Respiratory Rate 9 L 1 L 1 L Blood Pressure 100/43 L 94/43 L 89/42 L Pulse Oximetry 96 96 96 02/11/18 12:31 02/11/18 12:32 02/11/18 12:35 Temperature Pulse Rate 116 H 116 H 116 H Respiratory Rate 3 L 1 L 7 L Blood Pressure 86/40 L 85/41 L 82/39 L Pulse Oximetry 96 96 96 02/11/18 12:40 02/11/18 12:45 02/11/18 12:50 Temperature Pulse Rate 117 H 117 H 117 H Respiratory Rate 4 L 1 L 0 L Blood Pressure 88/42 L 91/43 L 88/42 L Pulse Oximetry 97 97 97 02/11/18 12:55 02/11/18 13:00 02/11/18 13:05 Temperature Pulse Rate 117 H 117 H 117 H Respiratory Rate 4 L 5 L 2 L Blood Pressure 98/44 L 105/45 L 102/44 L Pulse Oximetry 96 96 96 02/11/18 13:10 02/11/18 13:15 02/11/18 13:20 Temperature Pulse Rate 117 H 118 H 118 H Respiratory Rate 26 H 15 24 Blood Pressure 96/44 L 95/46 L 93/45 L Pulse Oximetry 98 97 98 02/11/18 13:25 02/11/18 13:30 02/11/18 13:35 Temperature Pulse Rate 118 H 118 H 118 H Respiratory Rate 26 H 19 20 Blood Pressure 95/46 L 86/42 L 88/42 L Pulse Oximetry 98 98 97 02/11/18 13:40 02/11/18 15:10 02/11/18 15:15 Temperature Pulse Rate 119 H 120 H 121 H Respiratory Rate 23 0 L 0 L Blood Pressure 98/49 L 105/45 L 104/51 L Pulse Oximetry 98 98 98 02/11/18 15:20 02/11/18 15:25 02/11/18 15:30 Temperature Pulse Rate 121 H 122 H 122 H Respiratory Rate 0 L 0 L 0 L Blood Pressure 104/49 L 102/49 L 97/45 L Pulse Oximetry 98 98 99 02/11/18 15:33 02/11/18 15:35 02/11/18 15:40 Temperature Pulse Rate 122 H 122 H 120 H Respiratory Rate 26 H 0 L 0 L Blood Pressure 99/45 L 99/38 L Pulse Oximetry 99 98 93 L 02/11/18 15:41 02/11/18 15:42 02/11/18 15:45 Temperature Pulse Rate 120 H 121 H 121 H Respiratory Rate 0 L 0 L 0 L Blood Pressure 92/35 L 95/41 L 100/47 L Pulse Oximetry 94 L 97 92 L 02/11/18 15:50 02/11/18 15:55 02/11/18 16:00 Temperature Pulse Rate 121 H 120 H 121 H Respiratory Rate 0 L 0 L 0 L Blood Pressure 88/42 L 108/51 L 97/48 L Pulse Oximetry 84 L 94 L 90 L 02/11/18 16:05 02/11/18 16:10 02/11/18 16:15 Temperature Pulse Rate 120 H 119 H 120 H Respiratory Rate 0 L 0 L 0 L Blood Pressure 99/49 L 101/51 L 98/48 L Pulse Oximetry 97 97 97 02/11/18 16:20 02/11/18 16:25 02/11/18 16:30 Temperature Pulse Rate 120 H 120 H 120 H Respiratory Rate 0 L 0 L 0 L Blood Pressure 94/52 L 93/48 L 92/47 L Pulse Oximetry 96 96 96 02/11/18 16:35 02/11/18 16:40 02/11/18 16:45 Temperature Pulse Rate 121 H 121 H 121 H Respiratory Rate 0 L 0 L 0 L Blood Pressure 92/48 L 93/55 L 89/44 L Pulse Oximetry 97 94 L 97 02/11/18 16:50 02/11/18 16:55 02/11/18 17:00 Temperature Pulse Rate 121 H 121 H 121 H Respiratory Rate 0 L 0 L 7 L Blood Pressure 90/44 L 90/45 L 88/46 L Pulse Oximetry 94 L 99 99 02/11/18 17:55 02/11/18 18:00 02/11/18 18:05 Temperature Pulse Rate 122 H 122 H 123 H Respiratory Rate 7 L 4 L 2 L Blood Pressure 81/41 L 80/43 L 77/38 L Pulse Oximetry 89 L 93 L 90 L 02/11/18 18:09 02/11/18 18:11 02/11/18 18:14 Temperature Pulse Rate 123 H 163 H 171 H Respiratory Rate 1 L 22 23 Blood Pressure 89/53 L 77/40 L 67/30 L Pulse Oximetry 94 L 90 L 87 L 02/11/18 18:15 02/11/18 18:18 02/11/18 18:19 Temperature Pulse Rate 171 H 170 H 167 H Respiratory Rate 22 10 L 8 L Blood Pressure 67/36 L 64/30 L 49/29 L Pulse Oximetry 87 L 84 L 80 L 02/11/18 18:20 02/11/18 18:25 02/11/18 18:27 Temperature Pulse Rate 167 H 161 H 155 H Respiratory Rate 9 L 11 L 21 Blood Pressure 52/19 L 53/20 L 104/65 Pulse Oximetry 82 L 83 L 97 02/11/18 18:30 02/11/18 18:35 02/11/18 18:40 Temperature Pulse Rate 156 H 156 H 159 H Respiratory Rate 21 23 24 Blood Pressure 99/53 L 106/42 L 106/55 L Pulse Oximetry 95 93 L 95 02/11/18 18:47 02/11/18 18:50 02/11/18 18:55 Temperature Pulse Rate 159 H 156 H 156 H Respiratory Rate 24 24 14 Blood Pressure 120/59 L 109/58 L 100/58 L Pulse Oximetry 95 95 96 02/11/18 19:00 02/11/18 19:05 02/11/18 19:10 Temperature Pulse Rate 156 H 155 H 153 H Respiratory Rate 12 13 17 Blood Pressure 99/53 L 97/54 L 111/55 L Pulse Oximetry 97 98 98 02/11/18 19:15 02/11/18 19:20 02/11/18 19:25 Temperature Pulse Rate 153 H 153 H 153 H Respiratory Rate 16 16 21 Blood Pressure 105/57 L 99/55 L 112/54 L Pulse Oximetry 87 L 93 L 94 L 02/11/18 19:30 02/11/18 20:00 02/11/18 21:00 Temperature 97.6 F Pulse Rate 153 H 155 H 155 H Respiratory Rate 7 L 20 20 Blood Pressure 99/53 L 100/49 L 100/49 L Pulse Oximetry 95 02/11/18 22:30 02/11/18 23:00 02/12/18 00:00 Temperature 98.5 F Pulse Rate 155 H 153 H Respiratory Rate 22 20 20 Blood Pressure 91/53 L 89/50 L Pulse Oximetry 98 94 L 02/12/18 01:00 02/12/18 01:10 02/12/18 01:15 Temperature Pulse Rate 151 H 150 H 150 H Respiratory Rate 22 23 Blood Pressure 87/42 L 89/44 L 87/46 L Pulse Oximetry 97 99 99 02/12/18 01:30 02/12/18 01:45 02/12/18 02:00 Temperature Pulse Rate 150 H 150 H 150 H Respiratory Rate 23 22 22 Blood Pressure 91/45 L 80/45 L 87/49 L Pulse Oximetry 98 98 98 02/12/18 02:15 02/12/18 02:30 02/12/18 02:45 Temperature Pulse Rate 150 H 150 H 150 H Respiratory Rate 23 23 23 Blood Pressure 87/44 L 78/43 L 84/49 L Pulse Oximetry 99 99 100 02/12/18 03:00 02/12/18 03:15 02/12/18 03:30 Temperature Pulse Rate 150 H 150 H 149 H Respiratory Rate 24 23 23 Blood Pressure 88/44 L 77/41 L 85/51 L Pulse Oximetry 100 99 100 02/12/18 03:45 02/12/18 04:00 02/12/18 04:15 Temperature 101.3 F H Pulse Rate 149 H 149 H 150 H Respiratory Rate 24 24 24 Blood Pressure 76/48 L 80/50 L 81/49 L Pulse Oximetry 100 100 100 02/12/18 04:28 02/12/18 04:30 02/12/18 04:45 Temperature Pulse Rate 175 H 175 H Respiratory Rate 24 24 25 H Blood Pressure 83/53 L 87/45 L Pulse Oximetry 100 100 100 02/12/18 05:00 02/12/18 05:15 02/12/18 05:30 Temperature Pulse Rate 175 H 174 H 171 H Respiratory Rate 24 24 24 Blood Pressure 104/56 L 109/55 L 78/50 L Pulse Oximetry 100 100 100 02/12/18 05:45 02/12/18 06:00 02/12/18 06:15 Temperature 100.9 F H Pulse Rate 171 H 171 H 169 H Respiratory Rate 24 25 H 26 H Blood Pressure 75/49 L 74/50 L 75/52 L Pulse Oximetry 100 100 100 02/12/18 06:30 02/12/18 06:45 02/12/18 07:00 Temperature Pulse Rate 167 H 167 H 167 H Respiratory Rate 25 H 25 H 0 L Blood Pressure 106/51 L 105/47 L 98/44 L Pulse Oximetry 100 100 99 02/12/18 07:15 02/12/18 07:30 02/12/18 07:45 Temperature Pulse Rate 171 H 179 H 172 H Respiratory Rate 0 L 23 26 H Blood Pressure 74/45 L 80/47 L 77/42 L Pulse Oximetry 100 100 100 02/12/18 08:00 02/12/18 08:15 Temperature Pulse Rate 173 H 171 H Respiratory Rate 21 25 H Blood Pressure 98/54 L 82/52 L Pulse Oximetry 100 100 Intake & Output 02/11/18 02/12/18 02/12/18 18:59 06:59 18:59 Intake Total 2270 / 2270 2700 / 2700 500 / 500 Output Total 380 / 380 300 / 300 Balance 1890 / 1890 2400 / 2400 500 / 500 Weight 114 kg Intake: IV 2270 / 2270 2700 / 2700 500 / 500 EPINEPHrine (1:1000) Inj 2 MG 500 / 500 In D5W Inj 248 ML @ 3 MCG/MIN 22.5 mls/hr IV.CONT TITRATE PRN Rx#:[id number] Neosynephrine Inj 160 MG In NS 500 / 500 500 / 500 500 / 500 Inj 484 ML @ 40 MCG/MIN 7.5 mls /hr IV.CONT TITRATE PRN Rx#: [id number] Pitressin Inj 40 UNIT In NS Inj 100 / 100 98 ML @ 0.04 UNITS/MIN 6 mls/ hr IV.CONT CONT ENDY Rx#: [id number] Acetadote Inj 9,850 MG In D5W 1050 / 1050 Inj 1,000 ML @ 62.5 mls/hr IV. SIG ONCE ONE Rx#:[id number] Alburx 5% Inj 500 ML @ 250 mls/ 500 / 500 500 / 500 hr IV.SIG NOW ENDY Rx#:[id number] Calcium Chloride Inj 2 GM In NS 120 / 120 Inj 100 ML @ As Directed IV. SIG ONCE ONE Rx#:[id number] Zosyn 3.375 GM Premix 50 ML @ 100 / 100 100 / 100 100 mls/hr IV.SIG Q8H ENDY Rx#: [id number] NS Inj 1,000 ML @ As Directed 1000 / 1000 OTHER .Q0M PRN Rx#:[id number] Output: Stool 150 / 150 Urine Amount (Catheter) 30 / 30 100 / 100 Indwelling Urethral Catheter 30 / 30 100 / 100 Gastric Drainage 200 / 200 200 / 200 Orogastric Tube 200 / 200 200 / 200 Result Diagrams: 02/12/18 05:15 02/12/18 05:15 Objective Remarks: Objective Remarks GENERAL: Patient is intubated and unresponsive SKIN: Warm and dry. HEAD: Normocephalic. EYES: No scleral icterus. No injection or drainage. NECK: Supple, trachea midline. No JVD. CARDIOVASCULAR: Tachycardic, nl S1, S2. RESPIRATORY: Breath sounds equal bilaterally. No accessory muscle use. GASTROINTESTINAL: Abdomen soft, non-tender, nondistended. no guarding. MUSCULOSKELETAL: No cyanosis, or edema. Neuro: intubated and unresponsive Assessment and Plan - Assessment and Plan Plan: A/P Assessment and Plan 1. Status post cardiopulmonary arrest. 2. ? Anoxic brain injury. 3. Encephalopathy. 4. Acute kidney injury- likely requiring renal replacement therapy 5 Thrombocytopenia 7. Severe Rhabdomyolysis.- worsening 8. Lactic acidemia. 9. Elevated ammonia level. 10. Leukocytosis. 11. Drug use with urine drug screen positive for amphetamines. 12 Coagulopathy 13. acute hypoxic and hypercarbic respiratory failure 14. acute anion gap and non-anion gap mixed metabolic acidosis 15. Acute shock liver 16. hypocalcemia 17. hyperkalemia 18. hypermagnesemia Plan Neuro: s/p therapeutic hypothermia Off all sedation. CT brain negative for acute process, UDS positive for amphetamines. On lactulose 30 mL q.i.d., monitor ammonia level. Check EEG and Neuro eval Pulm: Continue with vent support. Maintain sats >92%. Bronchodilators in the form of DuoNeb q. 6 hours ICU vent bundle. no weaning of mechanical ventilation while in shock with severe organ dysfunction CV: Continue with pressors keep MAP> 65 mmHg. 2d echo 02/09:EF 50-55% Place on stress dose steroids- 100mg IV Q8. : Monitor renal function, I's and O's and electrolyte replacement as needed. Started on hemodialysis on 02/10. Remains in metabolic acidosis and hyperkalemia with negligible urine output. Renal is following- Dr. Coronado. Patient may need CRRT in view of worsening metabolic acidosis and hypotension-Nephrology to decide On 08/15 NS+ 2 amps Bicarb @150ml/hr Will give Kayexalate 30gms and Ca gluconate 1amp x1 GI: on Pepcid for GI prophylaxis. Monitor LFTs , US Liver: Unremarkable, no evidence for cholelithiasis or acute cholecystitis. Continue with lactulose 30ml QID, monitor ammonia level. Hepatitis C positive hold off on tube feeds for now given shock. GI is following- started on Mucomyst ID: continue empiric abx ( Zosyn) in setting of worsening leukocytosis Monitor for signs of infection(fever and WBC). Follow up blood and urine cultures. Heme: Monitor CBC, coags. Coagulopathy likely 2nd hepatic failure Endo: SSI with Accu-Cheks for glycemic control. GI prophylaxis with Pepcid 10 mg IV q. 12 and DVT prophylaxis with SCDs . Lines: Cooling catheter placed in the left femoral area 02/07 Left IJ vascath, LIJ central line placed 02/10. Patient is critically ill s/p cardiac arrest with worsening renal function, liver failure, Rhabdo and possibly anoxic brain injury. Prognosis guarded. Consult palliative care to asses with goals of care CCT 35 mins, exclusive of separately billable procedures.
[2018-02-12] MEDS ORDERED: Hydrocortisone Sod Succinate 100 MG Vial IV.PUSH SCH (09:00)
[2018-02-12] MEDS: Famotidine PF Inj 20 MG/2 ML Vial IV.PUSH SCH (10:20)
[2018-02-12] MEDS: rifAXIMin 550 MG Tablet PO SCH (10:21)
--- NOTE | 2018-02-12 10:31 | ECG ---
Date Performed: 02/11/2018 Time Performed: 18:23:54 PTAGE: 89 years EKG: Probable supraventricular tachycardia. Lateral T wave changes are nonspecific Compared to p revious tracing the Supraventricular tachycardia has replaced sinus tachycardia, Right bundle branch block is no longer noted Abnormal ECG PREVIOUS TRACING : 02/08/2018 08.02 DOCTOR: Fercho Streeter Interpretating Date/Time 02/12/2018 10:30:51
--- NOTE | 2018-02-12 10:53 | P.CONPAL ---
Consult Service: Palliative Care Requesting Physician: Dipak Medellin Reason for Consult: a. To assist with evaluation and management of symptoms including: pain, dyspnea b. To assist medical decision maker(s) with: better understanding of current medical conditions; weighing benefits/burdens of medical treatment options; making medical treatment decisions. Primary Care Provider: No Primary Care Physician History of Present Illness History of Present Illness: Mr. Rojas is a 37 year old male with past medical history of drug abuse. Patient presented to [facility] Emergency department post cardiac arrest. Notes indicate patient was running from police, had a bottle of Thornton (weed killer) and evidently sprayed it at the police officers with potential self- contamination. He was tased twice. The patient collapsed to the ground and found in asystole. CPR was started was given epinephrine with return of spontaneous circulation. Upon EMS arrival he was noted to have dilated pupils. Upon arrival to the emergency department he was found to have: * lactic acid of 25 * creatinine 1.97 * potassium 6.5 * ammonia 1392 * total CK 3284, later increased to 181,769 * Urine screen positive amphetamines * CT scan brain - limited due to multiple artifacts, no acute intracranial abnormalities. * CT angiogram chest - no evidence of pulmonary embolism. Minimal ground glass opacities at the lung bases, likely reflecting atelectasis. * Chest x-ray - post-intubation showed ET tube above the roberth, otherwise no acute abnormalities. In the ED, patient was given approximately 2 L of crystalloids. In addition, he was treated for hyperkalemia with 10 units of IV insulin, D50, sodium bicarbonate, calcium gluconate and was placed on a bicarbonate drip. The patient was seen by Dr. Shaffer, nephrology and was started on CRRT. CODE COOL was completed. Sedation has stopped without evidence of neurologic recovery. Patient has had continued decline requiring multiple pressor and epi support. Renal and liver function continues to decline. Total bilirubin continues to rise , now 3.3. Mother, grandmother and brother at bedside. They have requested to transition to comfort measures with withdrawal of life support. Palliative care was consulted to assist with further clarification of treatment goals. Met with family at bedside. Guard at bedside, spoke with Mike Pena, corrections director at [employer] who indicates family is able to make medical decisions and they just request to be updated on condition/ . He also spoke with family. Mother has elected to transition to comfort with compassionate withdrawal of life support. Anticipatory guidance provided. Time Stamp Assembler visited. Questions answered. Function/Cognitive Trajectory: Patient has had history of drug addiction and hospitalizations due to overdose. Review of Systems unobtainable due to endotracheal tube, unobtainable due to mental status PMFSH - History History Provided By: Family Member (mother, brother and grandmother. ), Law Enforcement (Guard and Miek Bangura, Director of Corrections. ) - Medical History Medical History: Medical History (Last Updated 02/12/18 @ 12:32 by Serenity Chilel) Anxiety Drug addiction - Family History Family History: Family History (Last Updated 02/12/18 @ 12:24 by Serenity Chilel) Other Maternal grandmother alive and well - Tobacco History Smoking Status: Unknown if ever smoked - Alcohol History How Often Do You Have a Drink Containing Alcohol: Unable to Obtain - Substance Use History Substance History: Active Abuse - Travel History History of Recent Travel: No Recent Travel in the [place] Within the Last 8 Weeks: No Recent Travel Out of the Country Within the Last 8 Weeks: No Medications and Allergies Active Medications: Active Medications Acetaminophen (Tylenol) 650 mg PO UNSCH PRN PRN Reason: SEE LABEL COMMENTS Albuterol (Duoneb Neb ([facility])) 1 ampul INH Q6HR NEB [facility] Last Admin: 02/11/18 21:16 Dose: Not Given Artificial Tears (Tears Naturale Opth Drops) 1 drop EACH EYE Q4H PRN PRN Reason: SEE LABEL COMMENTS Chlorhexidine Gluconate (Chlorhexidine 2% Cloth) 3 pack TOPICAL DAILY@0400 [facility] Last Admin: 02/11/18 06:24 Dose: 3 pack Chlorhexidine Gluconate (Chlorhexidine 2% Cloth) 3 pack TOPICAL UNSCH PRN PRN Reason: HYGIENIC CARE Clonidine HCl (Catapres) 0.1 mg PO UNSCH PRN PRN Reason: SEE LABEL COMMENTS Dextrose (D50w Vial) 50 ml IV.PUSH UNSCH PRN PRN Reason: HYPOGLYCEMIA-SEE COMMENTS Diphenhydramine HCl (Benadryl) 25 mg PO UNSCH PRN PRN Reason: SEE LABEL COMMENTS Famotidine (Pepcid Pf Inj) 10 mg IV.PUSH Q12HR [facility] Last Admin: 02/12/18 10:20 Dose: 10 mg Gelatin (Gelfoam 12 Mm/7 Mm Topical) 1 foam TOPICAL PRN PRN PRN Reason: help stop bleeding from site Gentamicin Sulfate (Gentamicin Inj) 20 mg OTHER WITH DIALYSIS PRN PRN Reason: Dwell Gentamycin Lock Glucagon (Glucagon Inj) 1 mg OTHER UNSCH PRN PRN Reason: HYPOGLYCEMIA - SEE COMMENTS Haloperidol Lactate (Haldol Inj) 5 mg IV.PUSH Q4H PRN PRN Reason: AGITATION Heparin Sodium (Porcine) (Heparin Inj) 8,000 units IV.FLUSH WITH DIALYSIS PRN PRN Reason: for machine prime Heparin Sodium (Porcine) (Heparin Inj) 1,000 units OTHER WITH DIALYSIS PRN PRN Reason: Dwell Heparin to Fill Catheter Hydrocortisone Sodium Succinate (Solucortef Inj) 100 mg IV.PUSH Q8H [facility] Last Admin: 02/12/18 10:20 Dose: 100 mg Calcium Gluconate 1 gm/ Sodium (Chloride) 1,010 mls @ 500 mls/hr IV.SIG .Q2H2M PRN PRN Reason: PREDILUTIONAL SOLUTION Albumin Human (Alburx 5% Inj) 500 mls @ 250 mls/hr IV.SIG NOW [facility] Last Infusion: 02/11/18 23:32 Dose: Infused Epinephrine HCl 2 mg/ Dextrose 250 mls @ 22.5 mls/hr IV.CONT TITRATE PRN; Protocol PRN Reason: Per Protocol Last Admin: 02/12/18 09:38 Dose: 10 mcg/min, 75 mls/hr Cisatracurium Besylate 100 mg/ (Sodium Chloride) 250 mls @ 13.13 mls/hr IV.CONT TITRATE PRN; Protocol PRN Reason: Per Protocol Fentanyl (Fentanyl 10 Mcg/Ml Premix Drip) 2,500 mcg in 250 mls @ 5 mls/hr IV.SIG TITRATE PRN; Protocol PRN Reason: Per Protocol Midazolam HCl (Versed Inj) 50 mg in 50 mls @ 2 mls/hr IV.CONT TITRATE PRN PRN Reason: SEDATION Piperacillin/Tazobactam/Dextrose (Zosyn 3.375 Gm Premix) 50 mls @ 100 mls/hr IV.SIG Q8H [facility] Last Admin: 02/12/18 10:20 Dose: 200 mls/hr Propofol (Diprivan 1000 Mg/100 Ml Inj) 1,000 mg in 100 mls @ 2.626 mls/hr IV.CONT TITRATE PRN; Protocol PRN Reason: Per Protocol Sodium Bicarbonate 100 meq/ (Sodium Chloride) 1,000 mls @ 150 mls/hr IV.CONT .Q6H40M [facility] Last Admin: 02/12/18 10:25 Dose: 150 mls/hr Albumin Human (Flexbumin 25% Inj) 100 mls @ 60 mls/hr IV.SIG WITH DIALYSIS PRN PRN Reason: hypotension / volume replace Sodium Chloride (Ns Inj) 1,000 mls @ 0 mls/hr OTHER .Q0M PRN PRN Reason: for prime and rinse back Last Infusion: 02/11/18 23:34 Dose: Infused Sodium Chloride (Ns Inj) 1,000 mls @ 200 mls/hr OTHER .Q5H PRN PRN Reason: for dialyzer flush PRN Sodium Chloride (Ns Inj) 1,000 mls @ 0 mls/hr IV.CONT .Q0M PRN PRN Reason: hypotension / volume replace Norepinephrine Bitartrate 16 (mg/ Sodium Chloride) 250 mls @ 1.87 mls/hr IV.SIG TITRATE PRN; Protocol PRN Reason: Per Protocol Last Admin: 02/12/18 05:35 Dose: 30 mcg/min, 28.12 mls/hr Vasopressin 40 unit/ Sodium (Chloride) 100 mls @ 6 mls/hr IV.CONT CONT ENDY; Protocol Last Admin: 02/12/18 05:37 Dose: 0.04 units/min, 6 mls/hr Phenylephrine HCl 160 mg/ (Sodium Chloride) 500 mls @ 7.5 mls/hr IV.CONT TITRATE PRN; Protocol PRN Reason: See protol Last Admin: 02/12/18 07:34 Dose: 300 mcg/min, 56.25 mls/hr Insulin Human Regular (Novolin R Supplemental Scale) 1 units SQ Q4H END[facility]; Protocol Last Admin: 02/11/18 22:36 Dose: Not Given Lactulose (Lactulose Liq) 30 ml PO QID [facility] Last Admin: 02/12/18 10:21 Dose: 30 ml Lorazepam (Ativan Inj) 1 mg IV.PUSH Q1H PRN PRN Reason: SEIZURES Mannitol (Mannitol Inj) 12.5 gm IV.PUSH PRN PRN PRN Reason: hypotension / volume replace Miscellaneous Information (Misc Nursing Information) 1 each OTHER Q361D [facility] Miscellaneous Information (Misc Mix All Iv Meds In Ns) 1 each OTHER UNSCH [facility] Nitroglycerin (Nitrostat Sl) 0.4 mg SL Q5M PRN PRN Reason: CHEST PAIN Ondansetron HCl (Zofran Odt) 4 mg PO UNSCH PRN PRN Reason: WITH DIALYSIS Rifaximin (Xifaxan) 550 mg PO BID [facility] Last Admin: 02/12/18 10:21 Dose: 550 mg Sodium Chloride (Ns Flush) 5 ml IV.FLUSH PRN PRN PRN Reason: flush each lumen during HD Last Admin: 02/12/18 07:35 Dose: 5 ml Sodium Chloride (Ns Flush) 2 ml IV.FLUSH BID [facility] Last Admin: 02/12/18 10:21 Dose: 2 ml Sodium Chloride (Ns Flush) 2 ml IV.FLUSH UNSCH PRN PRN Reason: IV FLUSH Terbutaline Sulfate (Brethine Inj) 1 mg SQ UNSCH PRN PRN Reason: For Extravasation Allergies Allergy/AdvReac Type Severity Reaction Status Date / Time No Allergy Information Allergy Unverified 02/08/18 08:04 Available Advance Directives Living Will: No Healthcare Surrogate: No Health Care Surrogate Name and Number: According to [place] statutes, HC proxy decision making falls to mother. Power of Senior Auditor: No Today's verbally stated goals: Patient is not capacitated to make his own health care decisions, will not regain capacity. Family/friends goals: Desires comfort measures with compassionate withdrawal of life support. Ethical and Legal Issues: No known concerns at this time. Physical Exam Vital Signs: Vital Signs - 24 hr 02/11/18 11:00 02/11/18 11:13 02/11/18 11:15 Temperature Pulse Rate 120 H 120 H Respiratory Rate 0 L 24 0 L Blood Pressure 99/53 L 102/51 L Pulse Oximetry 97 97 98 02/11/18 11:30 02/11/18 11:45 02/11/18 12:00 Temperature Pulse Rate 120 H 116 H 117 H Respiratory Rate 0 L 0 L 9 L Blood Pressure 103/50 L 94/45 L 100/43 L Pulse Oximetry 98 97 96 02/11/18 12:15 02/11/18 12:30 02/11/18 12:31 Temperature Pulse Rate 117 H 116 H 116 H Respiratory Rate 1 L 1 L 3 L Blood Pressure 94/43 L 89/42 L 86/40 L Pulse Oximetry 96 96 96 02/11/18 12:32 02/11/18 12:35 02/11/18 12:40 Temperature Pulse Rate 116 H 116 H 117 H Respiratory Rate 1 L 7 L 4 L Blood Pressure 85/41 L 82/39 L 88/42 L Pulse Oximetry 96 96 97 02/11/18 12:45 02/11/18 12:50 02/11/18 12:55 Temperature Pulse Rate 117 H 117 H 117 H Respiratory Rate 1 L 0 L 4 L Blood Pressure 91/43 L 88/42 L 98/44 L Pulse Oximetry 97 97 96 02/11/18 13:00 02/11/18 13:05 02/11/18 13:10 Temperature Pulse Rate 117 H 117 H 117 H Respiratory Rate 5 L 2 L 26 H Blood Pressure 105/45 L 102/44 L 96/44 L Pulse Oximetry 96 96 98 02/11/18 13:15 02/11/18 13:20 02/11/18 13:25 Temperature Pulse Rate 118 H 118 H 118 H Respiratory Rate 15 24 26 H Blood Pressure 95/46 L 93/45 L 95/46 L Pulse Oximetry 97 98 98 02/11/18 13:30 02/11/18 13:35 02/11/18 13:40 Temperature Pulse Rate 118 H 118 H 119 H Respiratory Rate 19 20 23 Blood Pressure 86/42 L 88/42 L 98/49 L Pulse Oximetry 98 97 98 02/11/18 15:10 02/11/18 15:15 02/11/18 15:20 Temperature Pulse Rate 120 H 121 H 121 H Respiratory Rate 0 L 0 L 0 L Blood Pressure 105/45 L 104/51 L 104/49 L Pulse Oximetry 98 98 98 02/11/18 15:25 02/11/18 15:30 02/11/18 15:33 Temperature Pulse Rate 122 H 122 H 122 H Respiratory Rate 0 L 0 L 26 H Blood Pressure 102/49 L 97/45 L Pulse Oximetry 98 99 99 02/11/18 15:35 02/11/18 15:40 02/11/18 15:41 Temperature Pulse Rate 122 H 120 H 120 H Respiratory Rate 0 L 0 L 0 L Blood Pressure 99/45 L 99/38 L 92/35 L Pulse Oximetry 98 93 L 94 L 02/11/18 15:42 02/11/18 15:45 02/11/18 15:50 Temperature Pulse Rate 121 H 121 H 121 H Respiratory Rate 0 L 0 L 0 L Blood Pressure 95/41 L 100/47 L 88/42 L Pulse Oximetry 97 92 L 84 L 02/11/18 15:55 02/11/18 16:00 02/11/18 16:05 Temperature Pulse Rate 120 H 121 H 120 H Respiratory Rate 0 L 0 L 0 L Blood Pressure 108/51 L 97/48 L 99/49 L Pulse Oximetry 94 L 90 L 97 02/11/18 16:10 02/11/18 16:15 02/11/18 16:20 Temperature Pulse Rate 119 H 120 H 120 H Respiratory Rate 0 L 0 L 0 L Blood Pressure 101/51 L 98/48 L 94/52 L Pulse Oximetry 97 97 96 02/11/18 16:25 02/11/18 16:30 02/11/18 16:35 Temperature Pulse Rate 120 H 120 H 121 H Respiratory Rate 0 L 0 L 0 L Blood Pressure 93/48 L 92/47 L 92/48 L Pulse Oximetry 96 96 97 02/11/18 16:40 02/11/18 16:45 02/11/18 16:50 Temperature Pulse Rate 121 H 121 H 121 H Respiratory Rate 0 L 0 L 0 L Blood Pressure 93/55 L 89/44 L 90/44 L Pulse Oximetry 94 L 97 94 L 02/11/18 16:55 02/11/18 17:00 02/11/18 17:55 Temperature Pulse Rate 121 H 121 H 122 H Respiratory Rate 0 L 7 L 7 L Blood Pressure 90/45 L 88/46 L 81/41 L Pulse Oximetry 99 99 89 L 02/11/18 18:00 02/11/18 18:05 02/11/18 18:09 Temperature Pulse Rate 122 H 123 H 123 H Respiratory Rate 4 L 2 L 1 L Blood Pressure 80/43 L 77/38 L 89/53 L Pulse Oximetry 93 L 90 L 94 L 02/11/18 18:11 02/11/18 18:14 02/11/18 18:15 Temperature Pulse Rate 163 H 171 H 171 H Respiratory Rate 22 23 22 Blood Pressure 77/40 L 67/30 L 67/36 L Pulse Oximetry 90 L 87 L 87 L 02/11/18 18:18 02/11/18 18:19 02/11/18 18:20 Temperature Pulse Rate 170 H 167 H 167 H Respiratory Rate 10 L 8 L 9 L Blood Pressure 64/30 L 49/29 L 52/19 L Pulse Oximetry 84 L 80 L 82 L 02/11/18 18:25 02/11/18 18:27 02/11/18 18:30 Temperature Pulse Rate 161 H 155 H 156 H Respiratory Rate 11 L 21 21 Blood Pressure 53/20 L 104/65 99/53 L Pulse Oximetry 83 L 97 95 02/11/18 18:35 02/11/18 18:40 02/11/18 18:47 Temperature Pulse Rate 156 H 159 H 159 H Respiratory Rate 23 24 24 Blood Pressure 106/42 L 106/55 L 120/59 L Pulse Oximetry 93 L 95 95 02/11/18 18:50 02/11/18 18:55 02/11/18 19:00 Temperature Pulse Rate 156 H 156 H 156 H Respiratory Rate 24 14 12 Blood Pressure 109/58 L 100/58 L 99/53 L Pulse Oximetry 95 96 97 02/11/18 19:05 02/11/18 19:10 02/11/18 19:15 Temperature Pulse Rate 155 H 153 H 153 H Respiratory Rate 13 17 16 Blood Pressure 97/54 L 111/55 L 105/57 L Pulse Oximetry 98 98 87 L 02/11/18 19:20 02/11/18 19:25 02/11/18 19:30 Temperature Pulse Rate 153 H 153 H 153 H Respiratory Rate 16 21 7 L Blood Pressure 99/55 L 112/54 L 99/53 L Pulse Oximetry 93 L 94 L 95 02/11/18 20:00 02/11/18 21:00 02/11/18 22:30 Temperature 97.6 F Pulse Rate 155 H 155 H Respiratory Rate 20 20 22 Blood Pressure 100/49 L 100/49 L Pulse Oximetry 98 02/11/18 23:00 02/12/18 00:00 02/12/18 01:00 Temperature 98.5 F Pulse Rate 155 H 153 H 151 H Respiratory Rate 20 20 Blood Pressure 91/53 L 89/50 L 87/42 L Pulse Oximetry 94 L 97 02/12/18 01:10 02/12/18 01:15 02/12/18 01:30 Temperature Pulse Rate 150 H 150 H 150 H Respiratory Rate 22 23 23 Blood Pressure 89/44 L 87/46 L 91/45 L Pulse Oximetry 99 99 98 02/12/18 01:45 02/12/18 02:00 02/12/18 02:15 Temperature Pulse Rate 150 H 150 H 150 H Respiratory Rate 22 22 23 Blood Pressure 80/45 L 87/49 L 87/44 L Pulse Oximetry 98 98 99 02/12/18 02:30 02/12/18 02:45 02/12/18 03:00 Temperature Pulse Rate 150 H 150 H 150 H Respiratory Rate 23 23 24 Blood Pressure 78/43 L 84/49 L 88/44 L Pulse Oximetry 99 100 100 02/12/18 03:15 02/12/18 03:30 02/12/18 03:45 Temperature Pulse Rate 150 H 149 H 149 H Respiratory Rate 23 23 24 Blood Pressure 77/41 L 85/51 L 76/48 L Pulse Oximetry 99 100 100 02/12/18 04:00 02/12/18 04:15 02/12/18 04:28 Temperature 101.3 F H Pulse Rate 149 H 150 H Respiratory Rate 24 24 24 Blood Pressure 80/50 L 81/49 L Pulse Oximetry 100 100 100 02/12/18 04:30 02/12/18 04:45 02/12/18 05:00 Temperature Pulse Rate 175 H 175 H 175 H Respiratory Rate 24 25 H 24 Blood Pressure 83/53 L 87/45 L 104/56 L Pulse Oximetry 100 100 100 02/12/18 05:15 02/12/18 05:30 02/12/18 05:45 Temperature Pulse Rate 174 H 171 H 171 H Respiratory Rate 24 24 24 Blood Pressure 109/55 L 78/50 L 75/49 L Pulse Oximetry 100 100 100 02/12/18 06:00 02/12/18 06:15 02/12/18 06:30 Temperature 100.9 F H Pulse Rate 171 H 169 H 167 H Respiratory Rate 25 H 26 H 25 H Blood Pressure 74/50 L 75/52 L 106/51 L Pulse Oximetry 100 100 100 02/12/18 06:45 02/12/18 07:00 02/12/18 07:15 Temperature Pulse Rate 167 H 167 H 171 H Respiratory Rate 25 H 0 L 0 L Blood Pressure 105/47 L 98/44 L 74/45 L Pulse Oximetry 100 99 100 02/12/18 07:30 02/12/18 07:45 02/12/18 08:00 Temperature 99.6 F Pulse Rate 179 H 172 H 173 H Respiratory Rate 23 26 H 21 Blood Pressure 80/47 L 77/42 L 98/54 L Pulse Oximetry 100 100 100 02/12/18 08:15 02/12/18 08:30 02/12/18 08:45 Temperature Pulse Rate 171 H 171 H 170 H Respiratory Rate 25 H 17 26 H Blood Pressure 82/52 L 89/53 L 87/47 L Pulse Oximetry 100 100 100 02/12/18 08:54 02/12/18 09:00 02/12/18 09:15 Temperature Pulse Rate 172 H 168 H 168 H Respiratory Rate 23 20 13 Blood Pressure 86/45 L 89/50 L Pulse Oximetry 100 100 100 02/12/18 09:30 Temperature Pulse Rate 167 H Respiratory Rate 0 L Blood Pressure 92/46 L Pulse Oximetry 100 I&O: Intake & Output 02/10/18 02/11/18 02/12/18 02/13/18 06:59 06:59 06:59 06:59 Intake Total 5220 / 5220 500 / 500 Output Total 450 / 450 680 / 680 Balance -450 / -450 4540 / 4540 500 / 500 Weight 87.543 kg 114 kg Physical Exam: CONSTITUTIONAL/GENERAL: This is an adequately nourished patient, in no apparent distress. TUBES/LINES/DRAINS: ETT, OG, left IJ vas-cath, left central line, Miles, wrist restraints, PIV. SKIN: Mottling bilateral LEs, multiple tattoos. HEAD: Atraumatic. Normocephalic. EYES: Pupils dilated. ENT: Unable to assess hearing. Nose without bleeding or purulent drainage. Throat difficult to visualize due to tubes. NECK: Trachea midline. CARDIOVASCULAR: Tachycardic. RESPIRATORY/CHEST: Coarse breath sounds. GASTROINTESTINAL: Abdomen soft, nondistended. Bowel sounds present. GENITOURINARY: Without palpable bladder distension. Miles catheter in place. MUSCULOSKELETAL: Extremities without clubbing, cyanosis, or edema. No joint tenderness or effusion noted. No calf tenderness. No mottling or clubbing. LYMPHATICS: Not examined. NEUROLOGICAL: Unresponsive. PSYCHIATRIC: Unresponsive. Diagnostic Tests Laboratory: Laboratory Results - last 72 hr 02/08/18 02/08/18 02/08/18 08:10 08:10 08:10 WBC RBC Hgb Hct MCV MCH MCHC RDW Plt Count MPV Prelim Diff (Auto) Neut % (Auto) Lymph % (Auto) Zavala % (Auto) Eos % (Auto) Baso % (Auto) Neut # (Auto) Lymph # (Auto) Zavala # (Auto) Eos # (Auto) Baso # (Auto) CBC Comment WBC Differential Total Counted Neutrophils % (Manual) Seg Neuts % (Manual) Band Neutrophils % Band Neuts % (Manual) Lymphocytes % Lymphocytes % (Manual) Monocytes % Monocytes % (Manual) Metamyelocytes % (Man) Myelocytes % (Man) Neutrophils # (Manual) Abs Neuts (Manual) Nucleated RBCs/100 WBC Differential Comment Toxic Granulation Platelet Estimate Platelet Morphology Plt Morphology Comment Acanthocytes (Spur) RBC Morph Comment PT INR APTT Fibrinogen Puncture Site Patient Temperature HCO3 Base Excess O2 Saturation ABG pH ABG pCO2 ABG pO2 ABG HCO3 ABG O2 Content ABG Base Excess ABG Carboxyhemoglobin ABG Methemoglobin Cap Carboxyhemoglobin Hemoglobin O2 Delivery Device Vent Setting Inspired O2 Critical Value Sodium 143 Potassium 6.5 H Chloride 104 Carbon Dioxide 9.2 L Anion Gap 30 H BUN 12 Creatinine 1.97 H Estimated GFR 29 L POC Glucose Random Glucose 141 H Serum Osmolality Lactic Acid Calcium 8.2 L Prot Corrected Calcium Phosphorus Magnesium Iron TIBC % Saturation Ferritin Total Bilirubin 0.3 AST 103 H ALT 54 Alkaline Phosphatase 63 Ammonia Total Creatine Kinase 3284 H CK-MB (CK-2) 20.5 H CK-MB (CK-2) % 0.6 Troponin I 0.08 H Total Protein 6.8 Albumin 3.3 L TSH 3rd Generation 2.960 Urine Color Urine Turbidity Urine pH Ur Specific [place] Urine Protein Urine Glucose (UA) Urine Ketones Urine Occult Blood Urine Nitrite Urine Bilirubin Urine Urobilinogen Ur Leukocyte Esterase Urine RBC Urine WBC Amorphous Sediment Urine Bacteria Hyaline Casts Urine Mucus Micro UA Comment Nasal Screen MRSA (PCR) Salicylates 2.9 Urine Opiates Screen NEG Acetaminophen LESS THAN 2.0 L Ur Barbiturates Screen NEG Valproic Acid Ur Amphetamines Screen POS H U Benzodiazepines Scrn NEG Urine Cocaine Screen NEG U Cannabinoids Screen NEG Ethyl Alcohol LESS THAN 3 Hepatitis A IgM Ab Hep Bs Antigen Hep B Core IgM Ab Hep C IgG Ab 02/08/18 02/08/18 02/08/18 08:10 08:10 08:10 WBC RBC Hgb Hct MCV MCH MCHC RDW Plt Count MPV Prelim Diff (Auto) Neut % (Auto) Lymph % (Auto) Zavala % (Auto) Eos % (Auto) Baso % (Auto) Neut # (Auto) Lymph # (Auto) Zavala # (Auto) Eos # (Auto) Baso # (Auto) CBC Comment WBC Differential Total Counted Neutrophils % (Manual) Seg Neuts % (Manual) Band Neutrophils % Band Neuts % (Manual) Lymphocytes % Lymphocytes % (Manual) Monocytes % Monocytes % (Manual) Metamyelocytes % (Man) Myelocytes % (Man) Neutrophils # (Manual) Abs Neuts (Manual) Nucleated RBCs/100 WBC Differential Comment Toxic Granulation Platelet Estimate Platelet Morphology Plt Morphology Comment Acanthocytes (Spur) RBC Morph Comment PT 12.8 H INR 1.3 APTT 59.7 H Fibrinogen Puncture Site Patient Temperature HCO3 Base Excess O2 Saturation ABG pH ABG pCO2 ABG pO2 ABG HCO3 ABG O2 Content ABG Base Excess ABG Carboxyhemoglobin ABG Methemoglobin Cap Carboxyhemoglobin Hemoglobin O2 Delivery Device Vent Setting Inspired O2 Critical Value Sodium Potassium Chloride Carbon Dioxide Anion Gap BUN Creatinine Estimated GFR POC Glucose Random Glucose Serum Osmolality Lactic Acid 25.2 H* Calcium Prot Corrected Calcium Phosphorus Magnesium Iron TIBC % Saturation Ferritin Total Bilirubin AST ALT Alkaline Phosphatase Ammonia 1392 H Total Creatine Kinase CK-MB (CK-2) CK-MB (CK-2) % Troponin I Total Protein Albumin TSH 3rd Generation Urine Color Urine Turbidity Urine pH Ur Specific [place] Urine Protein Urine Glucose (UA) Urine Ketones Urine Occult Blood Urine Nitrite Urine Bilirubin Urine Urobilinogen Ur Leukocyte Esterase Urine RBC Urine WBC Amorphous Sediment Urine Bacteria Hyaline Casts Urine Mucus Micro UA Comment Nasal Screen MRSA (PCR) Salicylates Urine Opiates Screen Acetaminophen Ur Barbiturates Screen Valproic Acid Ur Amphetamines Screen U Benzodiazepines Scrn Urine Cocaine Screen U Cannabinoids Screen Ethyl Alcohol Hepatitis A IgM Ab Hep Bs Antigen Hep B Core IgM Ab Hep C IgG Ab 02/08/18 02/08/18 02/08/18 08:10 08:10 10:32 WBC 12.0 H RBC 4.12 L Hgb 12.1 L Hct 41.1 MCV 99.6 MCH 29.4 MCHC 29.6 L RDW 16.6 Plt Count 283 MPV 9.1 Prelim Diff (Auto) Neut % (Auto) 46.3 Lymph % (Auto) 47.9 H Zavala % (Auto) 4.8 Eos % (Auto) 0.2 Baso % (Auto) 0.8 Neut # (Auto) 5.6 Lymph # (Auto) 5.7 H Zavala # (Auto) 0.6 Eos # (Auto) 0.0 Baso # (Auto) 0.1 CBC Comment AUTO DIFF WBC Differential Total Counted 100 Neutrophils % (Manual) 47 Seg Neuts % (Manual) Band Neutrophils % 3 Band Neuts % (Manual) Lymphocytes % 45 H Lymphocytes % (Manual) Monocytes % 5 Monocytes % (Manual) Metamyelocytes % (Man) Myelocytes % (Man) Neutrophils # (Manual) 6.0 Abs Neuts (Manual) Nucleated RBCs/100 WBC Differential Comment FINAL DIFF MANUAL Toxic Granulation Platelet Estimate NORMAL Platelet Morphology Plt Morphology Comment NORMAL Acanthocytes (Spur) RBC Morph Comment PT INR APTT Fibrinogen Puncture Site LT FEMORAL Patient Temperature 98.6 HCO3 21 L Base Excess -3.2 L O2 Saturation 97 ABG pH 7.36 L ABG pCO2 39 ABG pO2 282 H ABG HCO3 ABG O2 Content 18.6 ABG Base Excess ABG Carboxyhemoglobin 0.2 ABG Methemoglobin 1.6 Cap Carboxyhemoglobin Hemoglobin 13.1 O2 Delivery Device VENTILATOR Vent Setting 500/10/+5/1.0 Inspired O2 100 Critical Value Sodium Potassium Chloride Carbon Dioxide Anion Gap BUN Creatinine Estimated GFR POC Glucose Random Glucose Serum Osmolality Lactic Acid Calcium Prot Corrected Calcium Phosphorus Magnesium Iron TIBC % Saturation Ferritin Total Bilirubin AST ALT Alkaline Phosphatase Ammonia Total Creatine Kinase CK-MB (CK-2) CK-MB (CK-2) % Troponin I Total Protein Albumin TSH 3rd Generation Urine Color Crystal Urine Turbidity CLOUDY H Urine pH 5.0 Ur Specific [place] 1.027 Urine Protein 100 H Urine Glucose (UA) NEG Urine Ketones TRACE H Urine Occult Blood SMALL H Urine Nitrite NEG Urine Bilirubin NEG Urine Urobilinogen 2.0 H Ur Leukocyte Esterase NEG Urine RBC 15 H Urine WBC 12 H Amorphous Sediment RARE Urine Bacteria RARE H Hyaline Casts 3 Urine Mucus FEW H Micro UA Comment CATH-CULTURE IND Nasal Screen MRSA (PCR) Salicylates Urine Opiates Screen Acetaminophen Ur Barbiturates Screen Valproic Acid Ur Amphetamines Screen U Benzodiazepines Scrn Urine Cocaine Screen U Cannabinoids Screen Ethyl Alcohol Hepatitis A IgM Ab Hep Bs Antigen Hep B Core IgM Ab Hep C IgG Ab 02/08/18 02/08/18 02/08/18 11:17 11:17 12:22 WBC RBC Hgb Hct MCV MCH MCHC RDW Plt Count MPV Prelim Diff (Auto) Neut % (Auto) Lymph % (Auto) [place] % (Auto) Eos % (Auto) Baso % (Auto) Neut # (Auto) Lymph # (Auto) [place] # (Auto) Eos # (Auto) Baso # (Auto) CBC Comment WBC Differential Total Counted Neutrophils % (Manual) Seg Neuts % (Manual) Band Neutrophils % Band Neuts % (Manual) Lymphocytes % Lymphocytes % (Manual) Monocytes % Monocytes % (Manual) Metamyelocytes % (Man) Myelocytes % (Man) Neutrophils # (Manual) Abs Neuts (Manual) Nucleated RBCs/100 WBC Differential Comment Toxic Granulation Platelet Estimate Platelet Morphology Plt Morphology Comment Acanthocytes (Spur) RBC Morph Comment PT INR APTT Fibrinogen Puncture Site Patient Temperature HCO3 Base Excess O2 Saturation ABG pH ABG pCO2 ABG pO2 ABG HCO3 ABG O2 Content ABG Base Excess ABG Carboxyhemoglobin ABG Methemoglobin Cap Carboxyhemoglobin Hemoglobin O2 Delivery Device Vent Setting Inspired O2 Critical Value Sodium 143 Potassium 3.2 L D Chloride 107 Carbon Dioxide 23.3 D Anion Gap 13 BUN 13 Creatinine 1.60 H Estimated GFR 37 L POC Glucose Random Glucose 26 L* D Serum Osmolality Lactic Acid 3.0 H Calcium 6.4 L* D Prot Corrected Calcium 6.5 L* Phosphorus Magnesium Iron TIBC % Saturation Ferritin Total Bilirubin AST ALT Alkaline Phosphatase Ammonia Total Creatine Kinase CK-MB (CK-2) CK-MB (CK-2) % Troponin I Total Protein 7.0 Albumin TSH 3rd Generation Urine Color Urine Turbidity Urine pH Ur Specific [place] Urine Protein Urine Glucose (UA) Urine Ketones Urine Occult Blood Urine Nitrite Urine Bilirubin Urine Urobilinogen Ur Leukocyte Esterase Urine RBC Urine WBC Amorphous Sediment Urine Bacteria Hyaline Casts Urine Mucus Micro UA Comment Nasal Screen MRSA (PCR) MRSA NOT DETECTED Salicylates Urine Opiates Screen Acetaminophen Ur Barbiturates Screen Valproic Acid Ur Amphetamines Screen U Benzodiazepines Scrn Urine Cocaine Screen U Cannabinoids Screen Ethyl Alcohol Hepatitis A IgM Ab Hep Bs Antigen Hep B Core IgM Ab Hep C IgG Ab 02/08/18 02/08/18 02/08/18 12:31 12:31 12:31 WBC RBC Hgb Hct MCV MCH MCHC RDW Plt Count MPV Prelim Diff (Auto) Neut % (Auto) Lymph % (Auto) [place] % (Auto) Eos % (Auto) Baso % (Auto) Neut # (Auto) Lymph # (Auto) [place] # (Auto) Eos # (Auto) Baso # (Auto) CBC Comment WBC Differential Total Counted Neutrophils % (Manual) Seg Neuts % (Manual) Band Neutrophils % Band Neuts % (Manual) Lymphocytes % Lymphocytes % (Manual) Monocytes % Monocytes % (Manual) Metamyelocytes % (Man) Myelocytes % (Man) Neutrophils # (Manual) Abs Neuts (Manual) Nucleated RBCs/100 WBC Differential Comment Toxic Granulation Platelet Estimate Platelet Morphology Plt Morphology Comment Acanthocytes (Spur) RBC Morph Comment PT INR APTT Fibrinogen Puncture Site Patient Temperature HCO3 Base Excess O2 Saturation ABG pH ABG pCO2 ABG pO2 ABG HCO3 ABG O2 Content ABG Base Excess ABG Carboxyhemoglobin ABG Methemoglobin Cap Carboxyhemoglobin Hemoglobin O2 Delivery Device Vent Setting Inspired O2 Critical Value Sodium Potassium Chloride Carbon Dioxide Anion Gap BUN Creatinine Estimated GFR POC Glucose Random Glucose Serum Osmolality Lactic Acid Calcium Prot Corrected Calcium Phosphorus 4.2 Magnesium Iron TIBC % Saturation Ferritin Total Bilirubin AST ALT Alkaline Phosphatase Ammonia 50 H Total Creatine Kinase CK-MB (CK-2) CK-MB (CK-2) % Troponin I Total Protein Albumin TSH 3rd Generation Urine Color Urine Turbidity Urine pH Ur Specific [place] Urine Protein Urine Glucose (UA) Urine Ketones Urine Occult Blood Urine Nitrite Urine Bilirubin Urine Urobilinogen Ur Leukocyte Esterase Urine RBC Urine WBC Amorphous Sediment Urine Bacteria Hyaline Casts Urine Mucus Micro UA Comment Nasal Screen MRSA (PCR) Salicylates Urine Opiates Screen Acetaminophen Ur Barbiturates Screen Valproic Acid 3 L Ur Amphetamines Screen U Benzodiazepines Scrn Urine Cocaine Screen U Cannabinoids Screen Ethyl Alcohol Hepatitis A IgM Ab Hep Bs Antigen Hep B Core IgM Ab Hep C IgG Ab 02/08/18 02/08/18 02/08/18 14:11 16:22 16:22 WBC RBC Hgb Hct MCV MCH MCHC RDW Plt Count MPV Prelim Diff (Auto) Neut % (Auto) Lymph % (Auto) [place] % (Auto) Eos % (Auto) Baso % (Auto) Neut # (Auto) Lymph # (Auto) [place] # (Auto) Eos # (Auto) Baso # (Auto) CBC Comment WBC Differential Total Counted Neutrophils % (Manual) Seg Neuts % (Manual) Band Neutrophils % Band Neuts % (Manual) Lymphocytes % Lymphocytes % (Manual) Monocytes % Monocytes % (Manual) Metamyelocytes % (Man) Myelocytes % (Man) Neutrophils # (Manual) Abs Neuts (Manual) Nucleated RBCs/100 WBC Differential Comment Toxic Granulation Platelet Estimate Platelet Morphology Plt Morphology Comment Acanthocytes (Spur) RBC Morph Comment PT INR APTT Fibrinogen Puncture Site Patient Temperature HCO3 Base Excess O2 Saturation ABG pH ABG pCO2 ABG pO2 ABG HCO3 ABG O2 Content ABG Base Excess ABG Carboxyhemoglobin ABG Methemoglobin Cap Carboxyhemoglobin Hemoglobin O2 Delivery Device Vent Setting Inspired O2 Critical Value Sodium Potassium Chloride Carbon Dioxide Anion Gap BUN Creatinine Estimated GFR POC Glucose Random Glucose Serum Osmolality 302 H Lactic Acid 1.2 Calcium Prot Corrected Calcium Phosphorus Magnesium Iron TIBC % Saturation Ferritin Total Bilirubin AST ALT Alkaline Phosphatase Ammonia 53 H Total Creatine Kinase CK-MB (CK-2) CK-MB (CK-2) % Troponin I Total Protein Albumin TSH 3rd Generation Urine Color Urine Turbidity Urine pH Ur Specific [place] Urine Protein Urine Glucose (UA) Urine Ketones Urine Occult Blood Urine Nitrite Urine Bilirubin Urine Urobilinogen Ur Leukocyte Esterase Urine RBC Urine WBC Amorphous Sediment Urine Bacteria Hyaline Casts Urine Mucus Micro UA Comment Nasal Screen MRSA (PCR) Salicylates Urine Opiates Screen Acetaminophen Ur Barbiturates Screen Valproic Acid Ur Amphetamines Screen U Benzodiazepines Scrn Urine Cocaine Screen U Cannabinoids Screen Ethyl Alcohol Hepatitis A IgM Ab Hep Bs Antigen Hep B Core IgM Ab Hep C IgG Ab 02/08/18 02/08/18 02/09/18 18:00 23:07 03:56 WBC RBC Hgb Hct MCV MCH MCHC RDW Plt Count MPV Prelim Diff (Auto) Neut % (Auto) Lymph % (Auto) [place] % (Auto) Eos % (Auto) Baso % (Auto) Neut # (Auto) Lymph # (Auto) [place] # (Auto) Eos # (Auto) Baso # (Auto) CBC Comment WBC Differential Total Counted Neutrophils % (Manual) Seg Neuts % (Manual) Band Neutrophils % Band Neuts % (Manual) Lymphocytes % Lymphocytes % (Manual) Monocytes % Monocytes % (Manual) Metamyelocytes % (Man) Myelocytes % (Man) Neutrophils # (Manual) Abs Neuts (Manual) Nucleated RBCs/100 WBC Differential Comment Toxic Granulation Platelet Estimate Platelet Morphology Plt Morphology Comment Acanthocytes (Spur) RBC Morph Comment PT INR APTT Fibrinogen Puncture Site Patient Temperature HCO3 Base Excess O2 Saturation ABG pH ABG pCO2 ABG pO2 ABG HCO3 ABG O2 Content ABG Base Excess ABG Carboxyhemoglobin ABG Methemoglobin Cap Carboxyhemoglobin Hemoglobin O2 Delivery Device Vent Setting Inspired O2 Critical Value Sodium 142 141 Potassium 3.9 4.6 Chloride 107 109 H Carbon Dioxide 24.2 22.7 Anion Gap 11 9 BUN 19 H 26 H Creatinine 1.89 H 2.60 H Estimated GFR 31 L 21 L POC Glucose Random Glucose 123 H 129 H Serum Osmolality Lactic Acid 0.9 Calcium 6.6 L* 6.3 L* Prot Corrected Calcium 6.9 L* 6.7 L* Phosphorus Magnesium Iron TIBC % Saturation Ferritin Total Bilirubin 1.1 H AST 2631 H ALT 583 H Alkaline Phosphatase 97 Ammonia Total Creatine Kinase 657695 H CK-MB (CK-2) 1505.3 H CK-MB (CK-2) % 1.1 Troponin I Total Protein 6.6 6.3 L Albumin 3.0 L TSH 3rd Generation Urine Color Urine Turbidity Urine pH Ur Specific [place] Urine Protein Urine Glucose (UA) Urine Ketones Urine Occult Blood Urine Nitrite Urine Bilirubin Urine Urobilinogen Ur Leukocyte Esterase Urine RBC Urine WBC Amorphous Sediment Urine Bacteria Hyaline Casts Urine Mucus Micro UA Comment Nasal Screen MRSA (PCR) Salicylates Urine Opiates Screen Acetaminophen Ur Barbiturates Screen Valproic Acid Ur Amphetamines Screen U Benzodiazepines Scrn Urine Cocaine Screen U Cannabinoids Screen Ethyl Alcohol Hepatitis A IgM Ab Hep Bs Antigen Hep B Core IgM Ab Hep C IgG Ab 02/09/18 02/09/18 02/09/18 03:56 03:56 03:56 WBC 21.4 H D RBC 4.85 Hgb 14.4 D Hct 44.0 MCV 90.7 D MCH 29.7 MCHC 32.7 RDW 16.1 Plt Count 119 L D MPV 8.1 Prelim Diff (Auto) Neut % (Auto) 95.5 H Lymph % (Auto) 2.6 L [place] % (Auto) 1.8 Eos % (Auto) 0.0 Baso % (Auto) 0.1 Neut # (Auto) 20.4 H Lymph # (Auto) 0.6 L [place] # (Auto) 0.4 Eos # (Auto) 0.0 Baso # (Auto) 0.0 CBC Comment DIFF FINAL WBC Differential Total Counted Neutrophils % (Manual) Seg Neuts % (Manual) Band Neutrophils % Band Neuts % (Manual) Lymphocytes % Lymphocytes % (Manual) Monocytes % Monocytes % (Manual) Metamyelocytes % (Man) Myelocytes % (Man) Neutrophils # (Manual) Abs Neuts (Manual) Nucleated RBCs/100 WBC Differential Comment Toxic Granulation Platelet Estimate Platelet Morphology Plt Morphology Comment Acanthocytes (Spur) RBC Morph Comment PT INR APTT Fibrinogen Puncture Site Patient Temperature HCO3 Base Excess O2 Saturation ABG pH ABG pCO2 ABG pO2 ABG HCO3 ABG O2 Content ABG Base Excess ABG Carboxyhemoglobin ABG Methemoglobin Cap Carboxyhemoglobin Hemoglobin O2 Delivery Device Vent Setting Inspired O2 Critical Value Sodium Potassium Chloride Carbon Dioxide Anion Gap BUN Creatinine Estimated GFR POC Glucose Random Glucose Serum Osmolality Lactic Acid 1.0 Calcium Prot Corrected Calcium Phosphorus Magnesium Iron TIBC % Saturation Ferritin Total Bilirubin AST ALT Alkaline Phosphatase Ammonia 100 H Total Creatine Kinase CK-MB (CK-2) CK-MB (CK-2) % Troponin I Total Protein Albumin TSH 3rd Generation Urine Color Urine Turbidity Urine pH Ur Specific [place] Urine Protein Urine Glucose (UA) Urine Ketones Urine Occult Blood Urine Nitrite Urine Bilirubin Urine Urobilinogen Ur Leukocyte Esterase Urine RBC Urine WBC Amorphous Sediment Urine Bacteria Hyaline Casts Urine Mucus Micro UA Comment Nasal Screen MRSA (PCR) Salicylates Urine Opiates Screen Acetaminophen Ur Barbiturates Screen Valproic Acid Ur Amphetamines Screen U Benzodiazepines Scrn Urine Cocaine Screen U Cannabinoids Screen Ethyl Alcohol Hepatitis A IgM Ab Hep Bs Antigen Hep B Core IgM Ab Hep C IgG Ab 02/09/18 02/09/18 02/09/18 09:20 09:20 09:20 WBC RBC Hgb Hct MCV MCH MCHC RDW Plt Count MPV Prelim Diff (Auto) Neut % (Auto) Lymph % (Auto) [place] % (Auto) Eos % (Auto) Baso % (Auto) Neut # (Auto) Lymph # (Auto) [place] # (Auto) Eos # (Auto) Baso # (Auto) CBC Comment WBC Differential Total Counted Neutrophils % (Manual) Seg Neuts % (Manual) Band Neutrophils % Band Neuts % (Manual) Lymphocytes % Lymphocytes % (Manual) Monocytes % Monocytes % (Manual) Metamyelocytes % (Man) Myelocytes % (Man) Neutrophils # (Manual) Abs Neuts (Manual) Nucleated RBCs/100 WBC Differential Comment Toxic Granulation Platelet Estimate Platelet Morphology Plt Morphology Comment Acanthocytes (Spur) RBC Morph Comment PT 18.1 H D INR 1.8 APTT Fibrinogen 120 L Puncture Site Patient Temperature HCO3 Base Excess O2 Saturation ABG pH ABG pCO2 ABG pO2 ABG HCO3 ABG O2 Content ABG Base Excess ABG Carboxyhemoglobin ABG Methemoglobin Cap Carboxyhemoglobin Hemoglobin O2 Delivery Device Vent Setting Inspired O2 Critical Value Sodium 143 Potassium 4.7 Chloride 111 H Carbon Dioxide 22.1 Anion Gap 10 BUN 28 H Creatinine 3.05 H Estimated GFR 18 L POC Glucose Random Glucose 127 H Serum Osmolality Lactic Acid Calcium 7.5 L D Prot Corrected Calcium Phosphorus Magnesium 4.0 H Iron TIBC % Saturation Ferritin Total Bilirubin AST ALT Alkaline Phosphatase Ammonia Total Creatine Kinase CK-MB (CK-2) CK-MB (CK-2) % Troponin I Total Protein Albumin TSH 3rd Generation Urine Color Urine Turbidity Urine pH Ur Specific [place] Urine Protein Urine Glucose (UA) Urine Ketones Urine Occult Blood Urine Nitrite Urine Bilirubin Urine Urobilinogen Ur Leukocyte Esterase Urine RBC Urine WBC Amorphous Sediment Urine Bacteria Hyaline Casts Urine Mucus Micro UA Comment Nasal Screen MRSA (PCR) Salicylates Urine Opiates Screen Acetaminophen Ur Barbiturates Screen Valproic Acid Ur Amphetamines Screen U Benzodiazepines Scrn Urine Cocaine Screen U Cannabinoids Screen Ethyl Alcohol Hepatitis A IgM Ab NONREACTIVE Hep Bs Antigen NONREACTIVE Hep B Core IgM Ab NONREACTIVE Hep C IgG Ab REACTIVE H 02/09/18 02/10/18 02/10/18 22:10 04:00 04:00 WBC RBC Hgb Hct MCV MCH MCHC RDW Plt Count MPV Prelim Diff (Auto) Neut % (Auto) Lymph % (Auto) [place] % (Auto) Eos % (Auto) Baso % (Auto) Neut # (Auto) Lymph # (Auto) [place] # (Auto) Eos # (Auto) Baso # (Auto) CBC Comment WBC Differential Total Counted Neutrophils % (Manual) Seg Neuts % (Manual) Band Neutrophils % Band Neuts % (Manual) Lymphocytes % Lymphocytes % (Manual) Monocytes % Monocytes % (Manual) Metamyelocytes % (Man) Myelocytes % (Man) Neutrophils # (Manual) Abs Neuts (Manual) Nucleated RBCs/100 WBC Differential Comment Toxic Granulation Platelet Estimate Platelet Morphology Plt Morphology Comment Acanthocytes (Spur) RBC Morph Comment PT 18.2 H INR 1.8 APTT Fibrinogen Puncture Site Patient Temperature HCO3 Base Excess O2 Saturation ABG pH ABG pCO2 ABG pO2 ABG HCO3 ABG O2 Content ABG Base Excess ABG Carboxyhemoglobin ABG Methemoglobin Cap Carboxyhemoglobin Hemoglobin O2 Delivery Device Vent Setting Inspired O2 Critical Value Sodium 142 143 Potassium 5.4 H 5.3 H Chloride 108 H 107 Carbon Dioxide 23.5 22.0 Anion Gap 11 14 BUN 34 H 38 H Creatinine 3.97 H 4.62 H Estimated GFR 13 L 11 L POC Glucose Random Glucose 90 94 Serum Osmolality Lactic Acid Calcium 5.6 L* D 6.2 L* Prot Corrected Calcium 6.1 L* D 7.1 L* Phosphorus Magnesium 3.3 H D 3.0 H Iron 157 TIBC 167 L % Saturation 94.2 H Ferritin 2162 H Total Bilirubin 1.5 H AST 4303 H ALT 1637 H Alkaline Phosphatase 110 Ammonia Total Creatine Kinase 278935 H CK-MB (CK-2) 1446.6 H CK-MB (CK-2) % 0.8 Troponin I Total Protein 5.8 L 5.2 L D Albumin 2.2 L D TSH 3rd Generation Urine Color Urine Turbidity Urine pH Ur Specific [place] Urine Protein Urine Glucose (UA) Urine Ketones Urine Occult Blood Urine Nitrite Urine Bilirubin Urine Urobilinogen Ur Leukocyte Esterase Urine RBC Urine WBC Amorphous Sediment Urine Bacteria Hyaline Casts Urine Mucus Micro UA Comment Nasal Screen MRSA (PCR) Salicylates Urine Opiates Screen Acetaminophen Ur Barbiturates Screen Valproic Acid Ur Amphetamines Screen U Benzodiazepines Scrn Urine Cocaine Screen U Cannabinoids Screen Ethyl Alcohol Hepatitis A IgM Ab Hep Bs Antigen Hep B Core IgM Ab Hep C IgG Ab 02/10/18 02/10/18 02/10/18 06:00 06:15 07:52 WBC 18.4 H RBC 4.37 L Hgb 13.0 Hct 40.0 MCV 91.5 MCH 29.7 MCHC 32.4 RDW 16.2 Plt Count 99 L MPV 9.6 Prelim Diff (Auto) Neut % (Auto) 93.0 H Lymph % (Auto) 4.3 L [place] % (Auto) 2.6 Eos % (Auto) 0.0 Baso % (Auto) 0.1 Neut # (Auto) 17.1 H Lymph # (Auto) 0.8 L [place] # (Auto) 0.5 Eos # (Auto) 0.0 Baso # (Auto) 0.0 CBC Comment AUTO DIFF WBC Differential Total Counted 100 Neutrophils % (Manual) 65 Seg Neuts % (Manual) Band Neutrophils % 31 H Band Neuts % (Manual) Lymphocytes % 1 L Lymphocytes % (Manual) Monocytes % 3 Monocytes % (Manual) Metamyelocytes % (Man) Myelocytes % (Man) Neutrophils # (Manual) 17.7 H Abs Neuts (Manual) Nucleated RBCs/100 WBC Differential Comment FINAL DIFF MANUAL Toxic Granulation Platelet Estimate LOW L Platelet Morphology Plt Morphology Comment NORMAL Acanthocytes (Spur) RBC Morph Comment NORMAL PT INR APTT Fibrinogen Puncture Site RT BRACHIAL Patient Temperature 98.6 HCO3 20 L Base Excess -9.3 L O2 Saturation 94 ABG pH 7.06 L* ABG pCO2 74 H* ABG pO2 103 ABG HCO3 ABG O2 Content 17.7 ABG Base Excess ABG Carboxyhemoglobin 0.8 ABG Methemoglobin 1.9 Cap Carboxyhemoglobin Hemoglobin 13.3 O2 Delivery Device VENTILATOR Vent Setting PRVC/AC Inspired O2 35 Critical Value Sodium Potassium Chloride Carbon Dioxide Anion Gap BUN Creatinine Estimated GFR POC Glucose Random Glucose Serum Osmolality Lactic Acid Calcium Prot Corrected Calcium Phosphorus Magnesium Iron TIBC % Saturation Ferritin Total Bilirubin AST ALT Alkaline Phosphatase Ammonia 106 H Total Creatine Kinase CK-MB (CK-2) CK-MB (CK-2) % Troponin I Total Protein Albumin TSH 3rd Generation Urine Color Urine Turbidity Urine pH Ur Specific [place] Urine Protein Urine Glucose (UA) Urine Ketones Urine Occult Blood Urine Nitrite Urine Bilirubin Urine Urobilinogen Ur Leukocyte Esterase Urine RBC Urine WBC Amorphous Sediment Urine Bacteria Hyaline Casts Urine Mucus Micro UA Comment Nasal Screen MRSA (PCR) Salicylates Urine Opiates Screen Acetaminophen Ur Barbiturates Screen Valproic Acid Ur Amphetamines Screen U Benzodiazepines Scrn Urine Cocaine Screen U Cannabinoids Screen Ethyl Alcohol Hepatitis A IgM Ab Hep Bs Antigen Hep B Core IgM Ab Hep C IgG Ab 02/10/18 02/11/18 02/11/18 11:47 05:15 05:15 WBC RBC Hgb Hct MCV MCH MCHC RDW Plt Count MPV Prelim Diff (Auto) Neut % (Auto) Lymph % (Auto) [place] % (Auto) Eos % (Auto) Baso % (Auto) Neut # (Auto) Lymph # (Auto) [place] # (Auto) Eos # (Auto) Baso # (Auto) CBC Comment WBC Differential Total Counted Neutrophils % (Manual) Seg Neuts % (Manual) Band Neutrophils % Band Neuts % (Manual) Lymphocytes % Lymphocytes % (Manual) Monocytes % Monocytes % (Manual) Metamyelocytes % (Man) Myelocytes % (Man) Neutrophils # (Manual) Abs Neuts (Manual) Nucleated RBCs/100 WBC Differential Comment Toxic Granulation Platelet Estimate Platelet Morphology Plt Morphology Comment Acanthocytes (Spur) RBC Morph Comment PT 17.4 H INR 1.7 APTT 41.9 H Fibrinogen 464 H Puncture Site ART LINE Patient Temperature 98.6 HCO3 16 L* Base Excess -10.7 L O2 Saturation 95 ABG pH 7.16 L* ABG pCO2 48 H ABG pO2 117 ABG HCO3 ABG O2 Content 17.0 ABG Base Excess ABG Carboxyhemoglobin 0.8 ABG Methemoglobin 1.9 Cap Carboxyhemoglobin Hemoglobin 12.6 O2 Delivery Device VENTILATOR Vent Setting Inspired O2 35 Critical Value Sodium Potassium Chloride Carbon Dioxide Anion Gap BUN Creatinine Estimated GFR POC Glucose Random Glucose Serum Osmolality Lactic Acid Calcium Prot Corrected Calcium Phosphorus Magnesium Iron TIBC % Saturation Ferritin Total Bilirubin AST ALT Alkaline Phosphatase Ammonia 38 H Total Creatine Kinase CK-MB (CK-2) CK-MB (CK-2) % Troponin I Total Protein Albumin TSH 3rd Generation Urine Color Urine Turbidity Urine pH Ur Specific [place] Urine Protein Urine Glucose (UA) Urine Ketones Urine Occult Blood Urine Nitrite Urine Bilirubin Urine Urobilinogen Ur Leukocyte Esterase Urine RBC Urine WBC Amorphous Sediment Urine Bacteria Hyaline Casts Urine Mucus Micro UA Comment Nasal Screen MRSA (PCR) Salicylates Urine Opiates Screen Acetaminophen Ur Barbiturates Screen Valproic Acid Ur Amphetamines Screen U Benzodiazepines Scrn Urine Cocaine Screen U Cannabinoids Screen Ethyl Alcohol Hepatitis A IgM Ab Hep Bs Antigen Hep B Core IgM Ab Hep C IgG Ab 02/11/18 02/11/18 02/11/18 05:15 05:15 07:07 WBC 28.0 H RBC 4.20 L Hgb 12.5 L Hct 37.7 L MCV 89.9 MCH 29.8 MCHC 33.2 RDW 16.0 Plt Count 68 L MPV 10.0 Prelim Diff (Auto) Slide review pending Neut % (Auto) 94.3 H Lymph % (Auto) 3.2 L [place] % (Auto) 2.3 Eos % (Auto) 0.0 Baso % (Auto) 0.2 Neut # (Auto) 26.4 H Lymph # (Auto) 0.9 L [place] # (Auto) 0.7 Eos # (Auto) 0.0 Baso # (Auto) 0.0 CBC Comment WBC Differential Manual diff final Total Counted Neutrophils % (Manual) Seg Neuts % (Manual) 49 Band Neutrophils % Band Neuts % (Manual) 30 H Lymphocytes % Lymphocytes % (Manual) 6 L Monocytes % Monocytes % (Manual) 5 Metamyelocytes % (Man) 10 H Myelocytes % (Man) Neutrophils # (Manual) Abs Neuts (Manual) 24.9 H Nucleated RBCs/100 WBC 1 H Differential Comment . Toxic Granulation 1+ H Platelet Estimate Low L Platelet Morphology Normal Plt Morphology Comment Acanthocytes (Spur) 1+ H RBC Morph Comment PT INR APTT Fibrinogen Puncture Site Art line Patient Temperature 98.6 HCO3 Base Excess O2 Saturation 93 ABG pH 7.16 L* ABG pCO2 34 L ABG pO2 98 ABG HCO3 12 L* ABG O2 Content 16.2 ABG Base Excess -15.4 L ABG Carboxyhemoglobin ABG Methemoglobin 1.7 Cap Carboxyhemoglobin 0.4 Hemoglobin 12.3 O2 Delivery Device Ventilator Vent Setting Prvc/ac Inspired O2 35 Critical Value Yes Sodium 140 Potassium 5.6 H Chloride 104 Carbon Dioxide 12.5 L Anion Gap 24 H BUN 46 H Creatinine 6.04 H Estimated GFR 8 L POC Glucose Random Glucose 98 Serum Osmolality Lactic Acid Calcium 5.1 L* Prot Corrected Calcium 6.0 L* Phosphorus 8.9 H Magnesium 1.8 Iron TIBC % Saturation Ferritin Total Bilirubin 1.7 H AST 3047 H ALT 1317 H Alkaline Phosphatase 109 Ammonia Total Creatine Kinase 101496 H CK-MB (CK-2) 808.8 H CK-MB (CK-2) % 0.5 Troponin I Total Protein 4.8 L Albumin 1.7 L TSH 3rd Generation Urine Color Urine Turbidity Urine pH Ur Specific [place] Urine Protein Urine Glucose (UA) Urine Ketones Urine Occult Blood Urine Nitrite Urine Bilirubin Urine Urobilinogen Ur Leukocyte Esterase Urine RBC Urine WBC Amorphous Sediment Urine Bacteria Hyaline Casts Urine Mucus Micro UA Comment Nasal Screen MRSA (PCR) Salicylates Urine Opiates Screen Acetaminophen Ur Barbiturates Screen Valproic Acid Ur Amphetamines Screen U Benzodiazepines Scrn Urine Cocaine Screen U Cannabinoids Screen Ethyl Alcohol Hepatitis A IgM Ab Hep Bs Antigen Hep B Core IgM Ab Hep C IgG Ab 02/11/18 02/11/18 02/11/18 18:17 18:56 22:24 WBC RBC Hgb Hct MCV MCH MCHC RDW Plt Count MPV Prelim Diff (Auto) Neut % (Auto) Lymph % (Auto) [place] % (Auto) Eos % (Auto) Baso % (Auto) Neut # (Auto) Lymph # (Auto) [place] # (Auto) Eos # (Auto) Baso # (Auto) CBC Comment WBC Differential Total Counted Neutrophils % (Manual) Seg Neuts % (Manual) Band Neutrophils % Band Neuts % (Manual) Lymphocytes % Lymphocytes % (Manual) Monocytes % Monocytes % (Manual) Metamyelocytes % (Man) Myelocytes % (Man) Neutrophils # (Manual) Abs Neuts (Manual) Nucleated RBCs/100 WBC Differential Comment Toxic Granulation Platelet Estimate Platelet Morphology Plt Morphology Comment Acanthocytes (Spur) RBC Morph Comment PT INR APTT Fibrinogen Puncture Site Art line Patient Temperature 98.6 HCO3 Base Excess O2 Saturation 97 ABG pH 7.17 L* ABG pCO2 40 ABG pO2 238 H ABG HCO3 14 L* ABG O2 Content 16.4 ABG Base Excess -13.1 L ABG Carboxyhemoglobin ABG Methemoglobin 1.6 Cap Carboxyhemoglobin 0.3 Hemoglobin 11.7 L O2 Delivery Device Ventilator Vent Setting Prvc/ac Inspired O2 100 Critical Value Yes Sodium Potassium Chloride Carbon Dioxide Anion Gap BUN Creatinine Estimated GFR POC Glucose 75 53 L Random Glucose Serum Osmolality Lactic Acid Calcium Prot Corrected Calcium Phosphorus Magnesium Iron TIBC % Saturation Ferritin Total Bilirubin AST ALT Alkaline Phosphatase Ammonia Total Creatine Kinase CK-MB (CK-2) CK-MB (CK-2) % Troponin I Total Protein Albumin TSH 3rd Generation Urine Color Urine Turbidity Urine pH Ur Specific [place] Urine Protein Urine Glucose (UA) Urine Ketones Urine Occult Blood Urine Nitrite Urine Bilirubin Urine Urobilinogen Ur Leukocyte Esterase Urine RBC Urine WBC Amorphous Sediment Urine Bacteria Hyaline Casts Urine Mucus Micro UA Comment Nasal Screen MRSA (PCR) Salicylates Urine Opiates Screen Acetaminophen Ur Barbiturates Screen Valproic Acid Ur Amphetamines Screen U Benzodiazepines Scrn Urine Cocaine Screen U Cannabinoids Screen Ethyl Alcohol Hepatitis A IgM Ab Hep Bs Antigen Hep B Core IgM Ab Hep C IgG Ab 02/11/18 02/12/18 02/12/18 22:29 02:28 05:15 WBC RBC Hgb Hct MCV MCH MCHC RDW Plt Count MPV Prelim Diff (Auto) Neut % (Auto) Lymph % (Auto) [place] % (Auto) Eos % (Auto) Baso % (Auto) Neut # (Auto) Lymph # (Auto) [place] # (Auto) Eos # (Auto) Baso # (Auto) CBC Comment WBC Differential Total Counted Neutrophils % (Manual) Seg Neuts % (Manual) Band Neutrophils % Band Neuts % (Manual) Lymphocytes % Lymphocytes % (Manual) Monocytes % Monocytes % (Manual) Metamyelocytes % (Man) Myelocytes % (Man) Neutrophils # (Manual) Abs Neuts (Manual) Nucleated RBCs/100 WBC Differential Comment Toxic Granulation Platelet Estimate Platelet Morphology Plt Morphology Comment Acanthocytes (Spur) RBC Morph Comment PT 15.3 H INR 1.5 APTT 44.0 H Fibrinogen 452 H Puncture Site Patient Temperature HCO3 Base Excess O2 Saturation ABG pH ABG pCO2 ABG pO2 ABG HCO3 ABG O2 Content ABG Base Excess ABG Carboxyhemoglobin ABG Methemoglobin Cap Carboxyhemoglobin Hemoglobin O2 Delivery Device Vent Setting Inspired O2 Critical Value Sodium Potassium Chloride Carbon Dioxide Anion Gap BUN Creatinine Estimated GFR POC Glucose 91 79 Random Glucose Serum Osmolality Lactic Acid Calcium Prot Corrected Calcium Phosphorus Magnesium Iron TIBC % Saturation Ferritin Total Bilirubin AST ALT Alkaline Phosphatase Ammonia Total Creatine Kinase CK-MB (CK-2) CK-MB (CK-2) % Troponin I Total Protein Albumin TSH 3rd Generation Urine Color Urine Turbidity Urine pH Ur Specific [place] Urine Protein Urine Glucose (UA) Urine Ketones Urine Occult Blood Urine Nitrite Urine Bilirubin Urine Urobilinogen Ur Leukocyte Esterase Urine RBC Urine WBC Amorphous Sediment Urine Bacteria Hyaline Casts Urine Mucus Micro UA Comment Nasal Screen MRSA (PCR) Salicylates Urine Opiates Screen Acetaminophen Ur Barbiturates Screen Valproic Acid Ur Amphetamines Screen U Benzodiazepines Scrn Urine Cocaine Screen U Cannabinoids Screen Ethyl Alcohol Hepatitis A IgM Ab Hep Bs Antigen Hep B Core IgM Ab Hep C IgG Ab 02/12/18 02/12/18 05:15 05:15 WBC 19.3 H RBC 3.33 L Hgb 9.7 L D Hct 29.2 L MCV 87.8 MCH 29.2 MCHC 33.3 RDW 16.5 Plt Count 49 L MPV 10.2 Prelim Diff (Auto) Manual diff required Neut % (Auto) Lymph % (Auto) [place] % (Auto) Eos % (Auto) Baso % (Auto) Neut # (Auto) Lymph # (Auto) [place] # (Auto) Eos # (Auto) Baso # (Auto) CBC Comment WBC Differential Manual diff final Total Counted Neutrophils % (Manual) Seg Neuts % (Manual) 60 Band Neutrophils % Band Neuts % (Manual) 31 H Lymphocytes % Lymphocytes % (Manual) 5 L Monocytes % Monocytes % (Manual) 3 Metamyelocytes % (Man) Myelocytes % (Man) 1 H Neutrophils # (Manual) Abs Neuts (Manual) 17.8 H Nucleated RBCs/100 WBC 4 H Differential Comment . Toxic Granulation Platelet Estimate Low L Platelet Morphology Normal Plt Morphology Comment Acanthocytes (Spur) Occ H RBC Morph Comment PT INR APTT Fibrinogen Puncture Site Patient Temperature HCO3 Base Excess O2 Saturation ABG pH ABG pCO2 ABG pO2 ABG HCO3 ABG O2 Content ABG Base Excess ABG Carboxyhemoglobin ABG Methemoglobin Cap Carboxyhemoglobin Hemoglobin O2 Delivery Device Vent Setting Inspired O2 Critical Value Sodium 137 Potassium 5.5 H Chloride 97 L Carbon Dioxide 16.6 L Anion Gap 23 H BUN 54 H Creatinine 5.99 H Estimated GFR 8 L POC Glucose Random Glucose 66 L Serum Osmolality Lactic Acid Calcium Less than 5.0 L* Prot Corrected Calcium 6.0 L* Phosphorus 9.3 H Magnesium 1.7 Iron TIBC % Saturation Ferritin Total Bilirubin 3.3 H AST 4400 H ALT 983 H Alkaline Phosphatase 115 Ammonia Total Creatine Kinase 01376 H CK-MB (CK-2) 715.9 H CK-MB (CK-2) % 0.7 Troponin I Total Protein 4.5 L Albumin 2.0 L TSH 3rd Generation Urine Color Urine Turbidity Urine pH Ur Specific [place] Urine Protein Urine Glucose (UA) Urine Ketones Urine Occult Blood Urine Nitrite Urine Bilirubin Urine Urobilinogen Ur Leukocyte Esterase Urine RBC Urine WBC Amorphous Sediment Urine Bacteria Hyaline Casts Urine Mucus Micro UA Comment Nasal Screen MRSA (PCR) Salicylates Urine Opiates Screen Acetaminophen Ur Barbiturates Screen Valproic Acid Ur Amphetamines Screen U Benzodiazepines Scrn Urine Cocaine Screen U Cannabinoids Screen Ethyl Alcohol Hepatitis A IgM Ab Hep Bs Antigen Hep B Core IgM Ab Hep C IgG Ab Result Diagrams: 02/12/18 10:30 02/12/18 05:15 Procedures: * Intubation * Central line and vas cath placement Patient/Family Conference Present at Family Conference: Met with mother, grandmother and brother at bedside. Family Conference Time: 60 Family Conference Location: Bedside Issues Discussed: * Palliative care role, purpose, approach * Additional medical, psychosocial, and spiritual history * Patients general health, functional status, and cognitive changes in the months leading up to the current hospitalization * Patient/family understanding of the current medical problems * Patient/family understanding of prognosis * Patients goals of care as best understood from advance directives and/or conversations and/or values * Current medical treatment options and benefits/burdens of those options * Likely scenarios comparing ongoing aggressive care with a transition to comfort measures only * Questions answered to the best of my ability * Palliative care contact information provided Desires transition to comfort with compassionate withdrawal of life support. Assessment and Plan - Disease Oriented Problem List (1) Acute kidney failure (2) Respiratory failure (3) History of cardiac arrest (4) Metabolic acidosis (5) Hypotension (6) Shock liver (7) Acute liver failure with hepatic coma Pertinent Non-Medical Issues: Psychosocial: Single. No children. Supported by his mother, grandmother and brother. Spiritual: [employer], welcomes expanded function dental assistant support. Legal: According to [place] statutes, health care proxy decision making falls to his mother. Ethical issues impacting care: No known concerns at this time. Prognosis: Patient is dying with multisystem organ failure. Patient is terminal. Code Status: No Code DNR Plan: * Patient is not capacitated to make his own health care decision. According to [place] statutes, health care proxy decision making falls to his mother. * NO CODE * Mother supported by grandmother brother have elected to proceed with transition to comfort focused care with compassionate withdrawal of life support. * Time Stamp Assembler has visited. * Declined hospice support at this time. * Exhibits B & C on chart. * Discussed with Dr. Diaz, Dr. Fisher and nursing staff. * SYMPTOMS: Pain and dyspnea: due to recent cardiac arrest, addiction, anxiety history, tubes and machines. Orders written for comfort meds. * Palliative care number provided. * Palliative care will continue to follow to assist with symptom managmeent and clarification of treatment goals as needed. Appreciation Thank you for the opportunity to participate in the care of VESTA ROJAS. Attestation Attestation: To help prompt me to consider important information that might be impacting today's encounter and assessment, information from prior notes written by myself or my colleagues may have been "brought forward" into today's note. My signature on this note, however, is an attestation that I personally performed the exam, history, and/or decision-making noted today, and, unless otherwise indicated, the interactions with patient, family, and staff as well as the review of records all occurred today. I also attest that the listed assessment and stated plan reflect my best clinical judgment today based on the combination of historical information, prior notes, and today's exam/ interactions. When time spent is documented, it refers only to time spent today by the signer, or if indicated, combined time spent today by collaborating physician/nurse practitioner.
[2018-02-12 11:02] LABS: Baso % (Auto) 0.1 % (0.0-2.0); Eos # (Auto) 0.2 th/mm3 (0.0-0.4); Eos % (Auto) 0.9 % (0.0-4.0); Hematocrit 28.8 % (39.0-51.0); Hemoglobin 9.7 gm/dL (13.0-17.0); Lymph # (Auto) 0.7 th/mm3 (1.0-4.8); Lymph % (Auto) 3.8 % (9.0-44.0); Mean Corpuscular HGB Conc 33.6 % (32.0-36.0); Mean Corpuscular Hemoglobin 29.4 pg (27.0-34.0); Mean Corpuscular Volume 87.6 fL (80.0-100.0); Mean Platelet Volume 10.2 fL (7.0-11.0); Mono # (Auto) 0.4 th/mm3 (0.0-0.9); Mono % (Auto) 2.1 % (0.0-8.0); Neut # (Auto) 16.8 th/mm3 (1.8-7.7); Neut % (Auto) 93.1 % (16.0-70.0); Platelet Count 47 th/mm3 (150-450); Red Blood Count 3.29 mil/mm3 (4.50-5.90); Red Cell Distribution Width 16.3 % (11.6-17.2); White Blood Count 18.1 th/mm3 (4.0-11.0)
[2018-02-12] MEDS ORDERED: Morphine Sulfate Inj 8 MG/ML Vial IV.PUSH PRN (11:06)
[2018-02-12] MEDS ORDERED: Morphine Inj 4 MG/ML Vial IV.PUSH ONE (11:06)
[2018-02-12] MEDS ORDERED: Hyoscyamine Inj 0.5 MG/ML Ampul IV.PUSH ONE (11:06)
[2018-02-12] MEDS ORDERED: Bisacodyl 10 MG Supp RECTAL PRN (11:06)
[2018-02-12] MEDS ORDERED: Hyoscyamine Inj 0.5 MG/ML Ampul IV.PUSH PRN (11:06)
[2018-02-12] MEDS ORDERED: Morphine Inj 4 MG/ML Vial IV.PUSH PRN (11:06)
[2018-02-12] MEDS ORDERED: Morphine Sulfate Inj 8 MG/ML Vial IV.PUSH ONE (11:19)
[2018-02-12 11:40] LABS: Lymphocytes 5 % (9-44); Monocytes 4 % (0-8); Tallied Nucleated RBC 3 (0-0)
[2018-02-12 11:41] LABS: Toxic Granulation 2+
[2018-02-12] MEDS ORDERED: Morphine Inj 4 MG/ML Vial IV.PUSH SCH (12:00)
--- NOTE | 2018-03-25 21:59 | MD ---
cc: Dipak Medellin MD DATE OF DISCHARGE: 02/12/2018 HOSPITAL COURSE: The patient is a 37-year-old with unknown past medical history who presented to [facility] ED status post cardiopulmonary arrest. Per ED records, the patient was running from police and was shocked twice and tazed. He collapsed to the ground and was found in asystole. He was intubated at the scene and was initially hypotensive and EMS noted dilated pupils. His laboratory data was significant for severe lactic acidosis with a lactic acid level of 25 metabolic acidosis, renal failure. In addition, he was hyperkalemic with potassium 6.5. His ammonia level was elevated at 1392 and CK of 3284. His urine drug screen was positive for amphetamines. In addition, he had a CT scan of the brain, which showed no acute intracranial abnormalities. The patient also underwent CT angiogram of the chest which showed no evidence of pulmonary embolism; however, it showed minimal ground-glass opacities at the lung bases. He was placed on Diprivan, Versed and fentanyl infusion for sedation. In addition, the patient was on a neuromuscular blockade in the form of Nimbex. The patient was placed on bronchodilators and was on multiple pressors to maintain MAP greater than 65 mmHg. Also, he was on stress dose steroids. His echocardiogram from 02/09/2018 showed an ejection fraction of 50-55%. Due to worsening renal failure, he was started on hemodialysis on 02/10/2018 and was followed by Dr. Coronado from nephrology service. The patient was also on a bicarbonate drip. He was kept on Pepcid for GI prophylaxis. The patient had elevated liver enzymes; however, his ultrasound of the liver showed no evidence of any cholelithiasis or acute cholecystitis. The patient was placed on lactulose for elevated ammonia level. His hepatitis C antibody was positive. GI service was following. Due to leukocytosis and possible aspiration pneumonia, the patient was placed on empiric antibiotics. Also, he was found coagulopathic secondary to hepatic failure. The patient was in multiorgan failure, including likely anoxic brain injury, encephalopathy, acute renal failure, thrombocytopenia, severe rhabdomyolysis, severe lactic acidosis, coagulopathy and multiple electrolyte derangements. Palliative care met with the family and they elected to proceed with withdrawal of life support. The patient . MD Bre Patel , 03:16 PM , 03:24 PM
== END 2018-02-12 12:58 | disposition expired ==
LOC: EDBD 09:48 → HIMC 09:48
PROVIDERS: ADMIT Internal Medicine Critical Care Medicine; ATTEND Internal Medicine Critical Care Medicine